=== PATIENT | male | born 1965 | race Caucasian/White ===

== ENCOUNTER → 2016-12-23 | Outpatient (CLI) | payer MEDICAID ==
[~2016-12-23] MED LIST: BACTRIM DS 8001 TAB PO; CIPRO 500MG TA500 MG PO; DIFLUCAN150 MG PO; FUROSEMIDE 20MG20 MG PO; GABAPENTIN 400400 MG PO; GLIPIZIDE 5MG TA5 MG PO; KEFLEX 500MG.500 MG PO; LISINOPRIL-HYDR1 TAB PO; METFORMIN500 MG PO; NOMEDS; NYSTATIN C30 GM/TUBE EX; OXYCODONE HCL10 M1 PO; OXYCODONE HYDRO10 M2 PO; PREDNISONE 10MG10 MG PO; PYRIDIUM 200MG200 MG PO; SPIRONOLACTONE25 MG NG
[2016-12-23 19:45] LABS: AMPHETAMINES/METAMPHETAMINES NEGATIVE ng/mL (<1000)
== END ==
LOC: LAB 18:07
PROVIDERS: Emergency Medicine
DX: Z79.899 Other long term (current) drug therapy (principal)

== ENCOUNTER 2017-04-18 08:57 | Observation (INO) | payer MEDICAID ==
[~2017-04-18] VITALS: Ht 180.3 cm; Wt 111.1 kg
[2017-04-18 09:01] VITALS: BP 192/101
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
[2017-04-18 09:42] LABS: HEMOGLOBIN 13.6 g/dL (14.1-18.0); LYMPH # 1.3 K/mm3 (0.7-4.5); LYMPH % 18.5 % (10-50)
[2017-04-18 09:56] LABS: URINE BLOOD 1+ (NEG)
[2017-04-18 09:59] LABS: URINE BILIRUBIN - DIPSTICK NEGATIVE (NEG)
[2017-04-18 10:02] LABS: AMPHETAMINES/METAMPHETAMINES NEGATIVE ng/mL (<1000)
[2017-04-18 10:23] LABS: BUN 10 mg/dL (7-18)
[2017-04-18 10:25] LABS: GFR (ESTIMATED) 79 ML/MIN (>60)
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
[2017-04-18 11:58] VITALS: BP 120/73
[2017-04-18 12:09] VITALS: BP 144/71
[2017-04-18 16:05] VITALS: BP 128/54
[2017-04-18 19:57] VITALS: BP 157/83
[2017-04-18 20:05] VITALS: BP 157/83
[2017-04-19 04:01] VITALS: BP 162/83
--- NOTE | 2017-04-19 07:21 | PHARMACY CLINIC NOTE ---
Patient Demographics Patient Demographics Admission date: 04/18/17 Date: 04/19/17 Time: 07 Allergies Coded Allergies: No Known Drug Allergies (02/29/16) HEIGHT- FT: 5 IN: 11.00 K.132 VTE General Information Labs: Laboratory Tests 04/18 09 Hematology Hgb (14.1 - 18.0 g/dL) 13.6 L Hct (42.0 - 52.0 %) 41.2 L Plt Count (142 - 424 K/mm3) 184 Disclaimer The following section includes nursing documentation that has been pulled in for pharmacy review. Patient's VTE score: 5 Patient's VTE Risk: LOW RISK Clinical trial participant? No VTE prophylaxis F [id number] VTE prophylaxis ordered? Yes Type of prophylaxis/treatment: LATA at 0721
[2017-04-19 08:00] VITALS: BP 152/74
[2017-04-19 09:31] VITALS: BP 152/74
[2017-04-19 14:37] LABS: HBsAg Screen Negative (Negative); Hep A Ab, IgM Negative (Negative); Hep B Core Ab, IgM Negative (Negative); Hep C Virus Ab >11.0 (0.0-0.9)
--- OUTSIDE RECORDS SUMMARY | 2017-04-20 07:05 | External Medical Summary Rpt ---
Author Author , JEFFREY MURPHY Address Unknown Phone [email or web address] Team Providers Care Hypertrichologist Name Role Phone INNA AMAYA, Unavailable Unavailable INNA AMAYA STEPHEN A, Unavailable Unavailable JIMBO CHACKO CONDE ALL, CONDE ALL Unavailable Unavailable JULIA MI, JULIA Unavailable Unavailable MI HEWITTGINA FARIAS, Unavailable Unavailable HEWITT JARRETT HEWITT JARRETT, Unavailable Unavailable HEWITTCARLOS BAEZ, Unavailable Unavailable [facility] Unavailable Unavailable [facility], [facility] RENESTERLING MULLINS, Unavailable Unavailable RENE, STERLING FALLIS MAHIN, FALLIS Unavailable Unavailable MAHIN PATRICIA FERGUSONEY Unavailable Unavailable PHYLLIS BETO, PHYLLIS Unavailable Unavailable BETO MONIQUE LACY, Unavailable Unavailable MONIQUE LACY RITA R, Unavailable Unavailable [facility] L[facility] Unavailable Unavailable INC, [facility] NAMRATA SAENZ, Unavailable Unavailable NAMRATA SAENZ [facility], Unavailable Unavailable [facility] Unavailable Unavailable IM[facility], [facility] Leanna Blair MD, Unavailable Unavailable Leanna Blair MD [facility] RENATA SWEENEY, Unavailable Unavailable RENATA SWEENEY [id number], Unavailable Unavailable [id number] Unavailable Unavailable [id number] [address] [id number], [facility] [id number] [address] [id number] CARINE KEY Unavailable Unavailable [facility] Unavailable Unavailable [facility]PIT[facility], [facility] Unavailable Unavailable #591, [id number] Purpose Continuity of Care Document - 03-21-2009 through 2016 Problems Code Diagnosis DOS Provider Status [id number] OTHER LONG 02-17-2017 [facility] CURRENT INC DRUG THERAPY G8929 OTHER 12-23-2016 [facility] CHRONIC PHYSICIANS PAIN GROUP E11.9 Type 2 12-18-2016 diabetes mellitus without complicatio ns I10 Essential 12-18-2016 (primary) hypertensio n R22.43 Localized 12-18-2016 swelling, mass and lump, lower limb, bilateral R60.0 Localized 12-18-2016 edema Z72.0 Tobacco use 12-18-2016 E119 TYPE 2 12-12-2016 [facility] WITHOUT COMPLICATIO NS I10 ESSENTIAL 12-12-2016 [facility] N R2243 LOC 12-12-2016 [place] [facility] LOWER LIMB BILATERAL R600 LOCALIZED 12-12-2016 [facility] Z0389 ENCOUNTER 12-12-2016 [place] [facility]TH [facility] SUSPCT [facility] COND RULED OUT Z720 TOBACCO USE 12-12-2016 [facility] B1920 UNS VIRAL 11-25-2016 [facility] HEPATITIS C PHYSICIANS WITHOUT GROUP HEPATIC COMA E663 OVERWEIGHT 11-25-2016 [facility] M5116 INTERVERTEB 11-25-2016 [facility] RAL DISC PHYSICIANS D/O GROUP W/RADICULOP ATHY LUMB RGN M545 LOW BACK 11-25-2016 [facility] PAIN PHYSICIANS GROUP M1990 UNSPECIFIED 09-07-2016 [facility] PHYSICIANS OSTEOARTHRI GROUP TIS UNSPECIFIED SITE Z139 ENCOUNTER 07-29-2016 [facility] FOR [facility] SCREENING GROUP UNSPECIFIED Z23 ENCOUNTER 07-29-2016 [facility] IMMUNIZATIO GROUP N B353 TINEA PEDIS 06-08-2016 [facility] M9983 OTHER 06-08-2016 [facility] BIOMECHANIC PHYSICIANS AL LESIONS GROUP OF LUMBAR REGION M722 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 D47909 PAIN IN 04-07-2016 [facility] MAHIN RIGHT FOOT N85621 PAIN IN 04-07-2016 [facility] MAHIN LEFT FOOT G8918 OTHER ACUTE 03-31-2016 [facility] MA[facility] POSTPROCEDU RAL PAIN I890 LYMPHEDEMA 03-31-2016 [facility] MAHIN NOT ELSEWHERE CLASSIFIED C31607W DISPLACED 03-31-2016 [facility] MAHIN FX 3RD METATARSAL LT FT SUBSQT FX RTN E71341D DSPL FX 03-31-2016 [facility] MAHIN PROX PHALANX LT GREAT TOE SBSQT FX RTN Z4789 ENCOUNTER 03-17-2016 [place] FOR OTHER [facility]ICAL ORTHOPEDIC IMAGING ASS AFTERCARE R65221H UNS 02-29-2016 COMMUNITY FRACTURE LT ANESTH OF TOES [facility] INITIAL ENC CLOS FRACTURE E1142 TYPE 2 02-25-2016 [facility] MAHIN DIABETES MELLITUS W/DIAB POLYNEUROPA THY M2570 OSTEOPHYTE 02-25-2016 [facility] MAHIN UNSPECIFIED JOINT B14314E DISPLACED 02-25-2016 [facility] MAHIN FX 3RD METATARSAL LT FT INIT CLOS FX [id number] DSPL FX 02-25-2016 [facility] MAHIN PROX PHALANX LT GREAT TOE INIT CLOS FX F12119T UNS 02-24-2016 [facility] FRACTURE LT PHYSICIANS FOOT GROUP INITIAL ENC CLOS FRACTURE T148 OTHER 02-24-2016 [facility] INJURY OF PHYSICIANS UNSPECIFIED GROUP BODY REGION T94988 PAIN IN 02-21-2016 [place] [facility] R079 CHEST PAIN 02-21-2016 [place] UNSPECIFIED MEDICAL IMAGING ASS B115DLN UNSPECIFIED 02-21-2016 [place] INJURY OF MEDICAL THORAX IMAGING ASS INITIAL ENCOUNTER K6429LL UNS INJURY 02-21-2016 [place] LT LOWER MEDICAL LEG INITIAL IMAGING ASS ENCOUNTER A53759T NONDSPL FX 02-21-2016 [place] 3RD MEDICAL METATARSAL IMAGING ASS LT FT INIT ENC CLOS FX M19601A DSPL FX 02-21-2016 [place] PROX PHALNX MEDICAL LT LESSER IMAGING ASS TOES INIT YONY FX Z72349 PRIMARY 02-09-2016 [facility] TIS INC UNSPECIFIED SHOULDER M170 BILATERAL 12-15-2015 [facility] OSTEOARTHRI INC TIS OF KNEE M5136 OTH 11-30-2015 [facility] RAL DISC INC DEGEN LUMBAR REGION 607.1 607.1 10-19-2013 [facility] 4439 UNSPECIFIED 10-13-2009 [facility] PERIPHERAL JARRETT VASCULAR DISEASE 4541 VARICOSE 10-13-2009 [facility] VEINS LOWER JARRETT EXTREMITIES W/INFLAMMAT ION 4660 ACUTE 09-30-2009 [facility] 61225 CHRONIC 09-23-2009 BERT SAENZ W IS UNSPECIFIED 7214 DEGENERATIO 08-10-2009 [facility] N OF FAMILY CERVICAL CHIROPRACTI INTERVERTEB C RAL DISC 46093 DEGEN 08-10-2009 [facility] 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 INTERVERTEB RAL DISC 96010 DEGEN 08-10-2009 [facility] LUMBAR/LUMB FAMILY OSACRAL CHIROPRACTI INTERVERTEB C RAL DISC 7395 NONALLOPATH 08-10-2009 [facility] IC LESION FAMILY OF [place] CHIROPRACTI REGION NEC C 30097 DIAB W/O 07-28-2009 [facility] COMP TYPE [facility] II/UNS NOT HOSPITAL STATED PROF DARYA UNCNTRL 73435 COR 07-28-2009 [facility] TYPE VESSEL PROF SERV NUNA[place]YARMI[place]/DELMI T [address]73 PERIPHERAL 07-28-2009 [facility] ANGIOPATHY [facility] CLASSIFIED PROF SERV ELSW 10063 OBSTRUCTIVE 07-28-2009 [facility] CHRONIC [facility] WITH PROF SERV EXACERBATIO N 59304 OBESITY, 03-21-2009 MONIQUE, UNSPECIFIED INNA Zaidi 4011 ESSENTIAL 03-21-2009 MONIQUE, HYPERTENSIO INNA Zaidi N, BENIGN 7019 UNSPECIFIED 03-21-2009 INNA AMAYA HYPERTROPHI C&ATROPHIC CONDITION SKIN E87.6 HYPOKALEMIA F19.10 OTHER PSYCHOACTIV E SUBSTANCE ABUSE, UNCOMPLICAT ED M62.82 RHABDOMYOLY SIS R74.8 ABNORMAL LEVELS OF OTHER SERUM ENZYMES S02.92XA UNSP FRACTURE OF FACIAL BONES, INIT FOR CLOS FX Allergies, Adverse Reactions, Alerts Type Drug Allergy Adverse Reaction to Substance Substance Reaction Severity No Known Allergies - Unknown Mild Nka Clinical Alert Notifications Alert Diabetes: no A1C in the last 6 months Diabetes: no eye exam in the last 365 days Diabetes: no lipid panel in the last 365 days Diabetes: no urine protein screening in the last 365 days Medications Na ND Rx Da Fi Fi Am Da Di Ph RX Ph St me C No te ll ll ou ys ag ar # ys at rm s nt no ma ic us Or Da si cy ia de te s n re d LI 68 06 07 60 30 00 HO Ac SI 18 -1 -2 .0 00 ME ti NO 00 9- - 06 TO ve IL 51 20 20 08 WN IL 80 17 17 34 -H [address] AR Z MA 10 CY -1 2. OF 5 MG CY NT TA HI B AN A BU 00 06 07 60 30 00 HO Ac ME 18 -1 -2 .0 00 ME ti TA 50 9- 1- 00 06 TO ve NI 13 20 20 08 WN DE 00 17 17 51 2 1 60 PH AR MG MA CY TA BL OF ET CY NT HI AN A GA 68 06 07 90 30 00 HO Ac BA 00 -1 -2 .0 00 ME ti PE 10 9- 1- 00 06 TO ve NT 00 20 20 08 WN IN 70 17 17 34 3 66 PH 80 AR 0 MA MG CY TA OF BL ET CY NT HI AN A ME 68 06 06 60 30 00 HO Ac TF 38 -0 -3 .0 00 ME ti OR 20 2- 0- 00 06 TO ve WA 76 20 20 08 WN N 00 17 17 34 HC 5 67 PH L AR 1, MA 00 CY 0 MG OF TA CY BL NT ET HI AN A GL 60 06 06 60 30 00 HO Ac IP 50 -0 -3 .0 00 ME ti IZ 50 2- 0- 00 06 TO ve ID 14 20 20 08 WN E 20 17 17 34 10 0 68 PH AR MG MA CY TA BL OF ET CY NT HI AN A OX 10 05 06 90 30 00 HO Ac YC 70 -1 -0 .0 00 ME ti OD 20 8- 9- 00 02 TO ve ON 05 20 20 01 WN E 60 17 17 36 HC 1 76 PH L AR 10 MA CY MG OF TA BL CY ET NT HI AN A GA 68 05 06 90 30 00 HO Ac BA 00 -1 -0 .0 00 ME ti PE 10 8- 9- 00 06 TO ve NT 00 20 20 08 WN IN 70 17 17 34 3 66 PH 80 AR 0 MA MG CY TA OF BL ET CY NT HI AN A ME 68 04 05 60 30 00 HO Ac TF 38 -1 -1 .0 00 ME ti OR 20 7- 2- 00 06 TO ve WA 76 20 20 08 WN N 00 17 17 01 HC 5 58 PH L AR 1, MA 00 CY 0 MG OF TA CY BL NT ET HI AN A OX 10 04 05 90 30 00 HO Ac YC 70 -2 -1 .0 00 ME ti OD 20 0- 2- 00 02 TO ve ON 05 20 20 01 WN E 60 17 17 34 HC 1 16 PH L AR 10 MA CY MG OF TA BL CY ET NT HI AN A GA 68 04 05 90 30 00 HO Ac BA 00 -2 -1 .0 00 ME ti PE 10 0- 2- 00 06 TO ve NT 00 20 20 08 WN IN 70 17 17 34 3 66 PH 80 AR 0 MA MG CY TA OF BL ET CY NT HI AN A GL 60 04 05 60 30 00 HO Ac IP 50 -1 -1 .0 00 ME ti IZ 50 7- 2- 00 06 TO ve ID 14 20 20 08 WN E 20 17 17 01 10 0 57 PH AR MG MA CY TA BL OF ET CY NT HI AN A LI 68 04 05 60 30 00 HO Ac SI 18 -2 -1 .0 00 ME ti NO 00 0- 2- 00 06 TO ve IL 51 20 20 08 WN IL 80 17 17 54 -H [address] AR Z MA 10 CY -1 2. OF 5 MG CY NT TA HI B AN A BU 00 04 05 60 30 00 HO Ac ME 18 -1 -0 .0 00 ME ti TA 50 4- 5- 00 06 TO ve NI 13 20 20 08 WN DE 00 17 17 51 2 1 60 PH AR MG MA CY TA BL OF ET CY NT HI AN A OX 10 03 04 90 30 00 HO Ac YC 70 -2 -1 .0 00 ME ti OD 20 3- 4- 00 02 TO ve ON 05 20 20 01 WN E 60 17 17 32 HC 1 23 PH L AR 10 MA CY MG OF TA BL CY ET NT HI AN A LI 68 03 04 60 30 00 HO Ac SI 18 -2 -1 .0 00 ME ti NO 00 3- 4- 00 06 TO ve IL 51 20 20 08 WN IL 80 17 17 01 -H [address] AR Z MA 10 CY -1 2. OF 5 MG CY NT TA HI B AN A GA 68 03 04 90 30 00 HO Ac BA 00 -2 -1 .0 00 ME ti PE 10 3- 4- 00 06 TO ve NT 00 20 20 08 WN IN 70 17 17 01 3 61 PH 80 AR 0 MA MG CY TA OF BL ET CY NT HI AN A GL 60 03 04 60 30 00 HO Ac IP 50 -1 -0 .0 00 ME ti IZ 50 7- 7- 00 06 TO ve ID 14 20 20 08 WN E 20 17 17 01 10 0 57 PH AR MG MA CY TA BL OF ET CY NT HI AN A ME 68 03 04 60 30 00 HO Ac TF 38 -1 -0 .0 00 ME ti OR 20 7- 7- 00 06 TO ve WA 76 20 20 08 WN N 00 17 17 01 HC 5 58 PH L AR 1, MA 00 CY 0 MG OF TA CY BL NT ET HI AN A LI 68 02 03 60 30 00 HO Ac SI 18 -2 -1 .0 00 ME ti NO 00 3- 7- 00 06 TO ve IL 51 20 20 08 WN IL 80 17 17 01 -H [address] AR Z MA 10 CY -1 2. OF 5 MG CY NT TA HI B AN A OX 10 02 03 90 30 00 HO Ac YC 70 -2 -1 .0 00 ME ti OD 20 3- 7- 00 02 TO ve ON 05 20 20 01 WN E 60 17 17 29 HC 1 73 PH L AR 10 MA CY MG OF TA BL CY ET NT HI AN A GA 68 02 03 90 30 00 HO Ac BA 00 -2 -1 .0 00 ME ti PE 10 3- 7- 00 06 TO ve NT 00 20 20 08 WN IN 70 17 17 01 3 61 PH 80 AR 0 MA MG CY TA OF BL ET CY NT HI AN A LI 68 01 02 60 30 00 HO Ac SI 18 -2 -1 .0 00 ME ti NO 00 5- 7- 00 06 TO ve IL 51 20 20 08 WN IL 80 17 17 01 -H [address] AR Z MA 10 CY -1 2. OF 5 MG CY NT TA HI B AN A OX 10 01 02 90 30 00 HO Ac YC 70 -2 -1 .0 00 ME ti OD 20 5- 7- 00 02 TO ve ON 05 20 20 01 WN E 60 17 17 26 HC 1 86 PH L AR 10 MA CY MG OF TA BL CY ET NT HI AN A ME 68 01 02 60 30 00 HO Ac TF 38 -2 -1 .0 00 ME ti OR 20 5- 7- 00 06 TO ve WA 76 20 20 08 WN N 00 17 17 01 HC 5 58 PH L AR 1, MA 00 CY 0 MG OF TA CY BL NT ET HI AN A GA 68 01 02 90 30 00 HO Ac BA 00 -2 -1 .0 00 ME ti PE 10 5- 7- 00 06 TO ve NT 00 20 20 08 WN IN 70 17 17 01 3 61 PH 80 AR 0 MA MG CY TA OF BL ET CY NT HI AN A GL 60 01 02 60 30 00 HO Ac IP 50 -2 -1 .0 00 ME ti IZ 50 5- 7- 00 06 TO ve ID 14 20 20 08 WN E 20 17 17 01 10 0 57 PH AR MG MA CY TA BL OF ET CY NT HI AN A IB 53 01 02 20 5 00 HO Ac UP 74 -1 -1 .0 00 ME ti RO 60 1- 0- 00 06 TO ve FE 46 20 20 07 WN N 60 17 17 93 80 5 60 PH 0 AR MG MA CY TA BL OF ET CY NT HI AN A CY 00 12 01 45 15 00 HO Ac CL 60 -2 -2 .0 00 ME ti OB 33 9- 0- 00 06 TO ve EN 07 20 20 07 WN ZA 93 16 17 84 IL 2 83 PH IN AR E MA 10 CY MG OF TA CY BL NT ET HI AN A LI 68 12 01 60 30 00 HO Ac SI 18 -2 -2 .0 00 ME ti NO 00 9- 0- 00 06 TO ve IL 51 20 20 07 WN IL 80 16 17 45 -H [address] AR Z MA 10 CY -1 2. OF 5 MG CY NT TA HI B AN A GA 68 12 01 90 30 00 HO Ac BA 00 -2 -2 .0 00 ME ti PE 10 9- 0- 00 06 TO ve NT 00 20 20 06 WN IN 70 16 17 09 3 77 PH 80 AR 0 MA MG CY TA OF BL ET CY NT HI AN A GL 60 12 01 60 30 00 HO Ac IP 50 -2 -2 .0 00 ME ti IZ 50 9- 0- 00 06 TO ve ID 14 20 20 07 WN E 20 16 17 45 10 0 84 PH AR MG MA CY TA BL OF ET CY NT HI AN A 00 12 01 30 30 00 HO Ac PI 60 -2 -2 .0 00 ME ti RI 30 9- 0- 00 06 TO ve N 02 20 20 07 WN EC 63 16 17 84 2 84 PH 81 AR MA MG CY TA OF BL ET CY NT HI AN A BU 68 12 01 30 30 00 HO Ac IL 00 -2 -2 .0 00 ME ti OP 10 8- 0- 00 06 TO ve IO 19 20 20 07 WN N 90 16 17 83 HC 0 93 PH L AR 75 MA CY MG OF TA BL CY ET NT HI AN A ME 68 12 01 60 30 00 HO Ac TF 38 -2 -2 .0 00 ME ti OR 20 9- 0- 00 06 TO ve WA 76 20 20 07 WN N 00 16 17 45 HC 5 83 PH L AR 1, MA 00 CY 0 MG OF TA CY BL NT ET HI AN A OX 10 12 01 90 30 00 HO Ac YC 70 -2 -2 .0 00 ME ti OD 20 8- 0- 00 02 TO ve ON 05 20 20 01 WN E 60 16 17 24 HC 1 29 PH L AR 10 MA CY MG OF TA BL CY ET NT HI AN A FL 00 02 0 No UC 17 -0 ON 25 8- Lo AZ 41 20 ng OL 14 14 er E 6 10 Ac 0 ti MG ve TA BL ET LI 00 02 0 No DO 05 -0 CA 48 8- Lo IN 50 20 ng E 01 14 er 2% 6 Ac ti SC ve OU S 15 ML UD C ME 00 08 08 1 21 6 RI 84 AR Ac TH 60 -2 -3 .0 TE 68 NO ti YL 34 4- 0- 00 24 LD ve IL 59 20 20 AI ED 31 10 10 D RI NI 5 PH CH SO AR AR LO MA D NE CY W 4 03 MG 93 8 DO # SE 03 PK 93 59 08 08 5 8. 16 RI 84 AR Ac 31 -2 -2 50 TE 68 NO ti 00 4- 4- 0 23 LD ve 57 20 20 AI 92 10 10 D RI 0 PH CH AR AR MA D CY W 03 93 8 # 03 93 ME 00 08 08 1 21 6 RI 84 AR Ac TH 60 -2 -2 .0 TE 68 NO ti YL 34 4- 4- 00 24 LD ve IL 59 20 20 AI ED 31 10 10 D RI NI 5 PH CH SO AR AR LO MA D NE CY W 4 03 MG 93 8 DO # SE 03 PK 93 DI 00 08 08 5 60 30 RI 84 AR Ac AZ 59 -2 -2 .0 TE 68 NO ti EP 15 4- 4- 00 25 LD ve AM 62 20 20 AI 00 10 10 D RI 10 1 PH CH AR AR MG MA D CY W TA BL 03 ET 93 8 # 03 93 DI 00 05 05 1 60 30 RI 83 AR Ac AZ 17 -0 -0 .0 TE 25 NO ti EP 23 5- 5- 00 97 LD ve AM 92 20 20 AI 77 10 10 D RI 10 0 PH CH AR AR MG MA D CY W TA BL 03 ET 93 8 # 03 93 AZ 59 01 01 00 6[address] Ac IT 76 -1 -2 00 TE 67 EP ti HR 23 2- 8- 0 79 HE ve OM 06 20 20 AI NS YC 00 10 10 D IN 1 PH KE AR 25 M N 0 #3 C MG 93 8 TA BL ET OX 00 01 01 00 20 3 RI 81 HE Ac YC 40 -1 -2 .0 TE 70 ND ti OD 60 3- 8- 00 30 ER ve ON 51 20 20 AI SO E- 20 10 10 D N AC 1 PH RO ET AR BE AM M RT IN #3 W OP 93 HE 8 N 5- 32 5 00 01 01 00 15 2 RI 81 HE Ac 40 -1 -2 .0 TE 73 ND ti 60 5- 8- 00 14 ER ve 35 20 20 AI SO 80 10 10 D N 1 PH RO AR BE M RT #3 W 93 8 DI 00 10 12 00 60 30 RI 81 AR Ac AZ 17 -0 -3 .0 TE 35 NO ti EP 23 6- 1- 00 47 LD ve AM 92 20 20 AI 77 09 09 D RI 10 0 PH CH AR AR MG M D #3 W TA 93 BL 8 ET PE 00 12 12 00 [address] Ac NI 78 -0 -1 .0 L- 48 EP ti CI 11 2- 7- 00 MA 42 HE ve LL 65 20 20 RT 5 NS IN 50 09 09 1 PH KE VK AR MA N 50 CY C 0 MG #5 91 TA BL ET 00 12 12 00 [address] Ac 59 -0 -1 .0 L- 48 EP ti 13 2- 7- 00 MA 42 HE ve 96 20 20 RT 6 NS 90 09 09 1 PH KE AR MA N CY C #5 91 DI 00 10 11 01 60 30 WA 44 AR Ac AZ 37 -0 -1 .0 L- 80 NO ti EP 80 6- 9- 00 MA 23 LD ve AM 47 20 20 RT 1 70 09 09 RI 10 5 PH CH AR AR MG MA D CY W TA BL #5 ET 91 DI 00 10 10 00 60 30 WA 44 AR Ac AZ 37 -0 -2 .0 L- 80 NO ti EP 80 6- 2- 00 MA 23 LD ve AM 47 20 20 RT 1 70 09 09 RI 10 5 PH CH AR AR MG MA D CY W TA BL #5 ET 91 LI 00 07 07 00 30 30 RI 79 AR Ac SI 37 -1 -3 .0 TE 14 NO ti NO 82 1- 0- 00 33 LD ve IL 07 20 20 AI IL 40 09 09 D RI 1 PH CH 10 AR AR M D MG #3 W 93 TA 8 BL ET Immunization Name Date Rout CVX Reac Dose Comm Prov Is Faci e tion ent ider Refu lity Give sed n PPSV 11-1 33 GAIN No HMH 23 8-20 EY PHYS VACC 16 BETO ICIA INE NS 2 GROU YRS P OR OLDE R FOR SUBQ /IM USE Vital Signs 10-19-2013 01:03 Name Value Interpretat Reference Comment ion Range BP 99 mm[Hg] Diastolic BP Systolic 160 mm[Hg] Heart 87 /min Rate/Pulse O2% 98 % Respiratory 20 /min Rate 10-19-2013 00:21 Name Value Interpretat Reference Comment ion Range BP 94 mm[Hg] Diastolic BP Systolic 151 mm[Hg] Heart 80 /min Rate/Pulse O2% 97 % Respiratory 20 /min Rate Results Labs Lab Lab Date Result Refere Interp Status Commen Order Detail nces retati t Range on Drugs identified in Urine by Screen method (04-18-2017 09:25) Ampheta NEGATIV <1000 complet mine 017 E ed [Presen 09:25 ce] in Urine by Screen method Hydr NEGATIV <50 complet oxy 017 E ed delta-9 09:25 tetrahy drocann abinol [Presen ce] in Unspeci fied specime n Drugs identified in Urine by Screen method (02-17-2017 16:15) Ampheta NEGATIV <1000 complet mine 017 E ed [Presen 16:15 ce] in Urine by Screen method Hydr NEGATIV <50 complet oxy 017 E ed delta-9 16:15 tetrahy drocann abinol [Presen ce] in Unspeci fied specime n Procedures Procedure DOS Code Location Performer Comment DRUG TEST 96983 [facility] QUAL DIR INC INC OPTICAL OBS PER DAY DRUG TEST 54944 [facility]AL DIR INC INC OPTICAL OBS PER DAY DRUG TEST 76419 [facility]AL [place] [address] [facility] COMPREHEN 55980 [facility] SIVE 7 [facility] METABOLIC E E PANEL [facility] DUP-SCAN 17179 [facility] XTR VEINS 7 [facility]ALTHCAR [facility] COMPLETE E E [facility] BILATERAL STUDY BLOOD 08266 [facility] COUNT 7 [facility] COMPLETE E E [facility] [place] 05573 [facility] IC 7 [facility] PEPTIDE E E HOSP[facility]ALS H[facility] CREATINE 67999 [facility] KINASE 7 [facility] TOTAL E E [facility] DRUG TEST 72589 [facility] QUAL DIR INC INC OPTICAL OBS PER DAY DRUG TEST 57274 [facility] QUAL DIR INC INC OPTICAL OBS PER DAY DRUG TEST 44720 [facility] QUAL DIR INC INC OPTICAL OBS PER DAY DRUG TST G0477 [facility] PRESUMP;C [facility] PBL BEING INC INC READ DC OPT OBV ONLY DRUG TST G0477 [facility] PRESUMP;C [facility] PBL BEING INC INC READ DC OPT OBV ONLY HEMOGLOBI 56821 [facility] N 6 [facility] GLYCOSYLA INC INC LATA A1C BLOOD 65079 [facility] COUNT [facility] COMPLETE INC INC AUTO&AUTO DIFRNTL WBC PPSV23 57380 [facility] VACCINE 2 6 PHYSICIAN BETO YRS OR S GROUP OLDER FOR SUBQ/IM USE COMPREHEN 40864 [facility] SIVE [facility] METABOLIC INC INC PANEL IM ADM 26308 [facility] PRQ ID 6 PHYSICIAN BETO SUBQ/IM S GROUP NJXS 1 VACCINE DRUG TST G0477 [facility] PRESUMP[facility] PBL BEING INC INC READ DC OPT OBV ONLY FOOT L3020 [facility] J[facility]IA INSRT 6 MAHIN MI REMV MOLD PT MDL LNGTUDNL/ MT SUPP EA DRUG TST G0477 [facility] PBL BEING INC INC READ DC OPT OBV ONLY DRUG TEST G0481 [facility] DEFINITV [address] [facility] [address] [facility] [address] ID INC INC METH P DAY 8-14 DRUG CL REMOVAL 92170 [facility] IMPLANT 6 MAHIN MI DEEP APPLICATI 21205 [facility] ON RIGID 6 MAHIN MI TOTAL CONTACT LEG CAST RADIOLOGI 43461 GE[facility] CONDE ALL C 6 MEDICAL EXAMINATI IMAGING ON FOOT 2 ASS VIEWS RADEX 96880 [facility] FOOT 6 [facility] COMPLETE INC INC MINIMUM 3 VIEWS ANES OPEN 82509 [facility] PROC 6 ANESTH NEL BONES OF THE LOWER BLUE LEG/ANKLE /FOOT NOS BLOOD 84362 [facility] COUNT 6 [facility] COMPLETE INC INC AUTO&AUTO DIFRNTL WBC WALKING L4360 [facility]IA BOOT 6 MAHIN MI PNEUMATC &/ VACUUM PREFAB CUSTM FIT ADD LOW L2840 [facility] EXTREM 6 MAHIN MI ORTHOTIC TIB LENGTH SOCK FX/= EA RADIOLOGI 35653 GEETHA CONDE ALL C 6 MEDICAL EXAMINATI IMAGING ON KNEE ASS 1/2 VIEWS RADIOLOGI 67875 [facility] CONDE ALL C 6 MEDICAL EXAMINATI IMAGING ON FOOT 2 ASS VIEWS RADIOLOGI 68139 [facility] CONDE ALL C 6 MEDICAL EXAMINATI IMAGING ON CHEST ASS SINGLE VIEW FRONTAL DRUG TST G0477 [facility] PRESUMP;C [facility] PBL BEING INC INC READ DC OPT OBV ONLY DRUG 82254 [facility] SCREENING 6 [facility] OPIOIDS INC INC & OPIATE ANALOGS 5/MORE ARTHROCEN 26919 [facility] TESIS [facility] ASPIR&/IN INC INC J MAJOR JT/BURSA W/O US INJECTION J1030 [facility] METHYLPRE INC INC DNISOLONE ACETATE 40 MG PROSTATE G0103 [facility] CANCER 6 [facility] SCREENING INC INC ; PSA TEST COMPREHEN 60744 [facility] SIVE 6 [facility] [address] [facility] PROSTATE 6 [facility] SPECIFIC INC INC ANTIGEN FREE BLOOD 28879 [facility] COUNT 6 [facility] COMPLETE INC INC AUTO&AUTO DIFRNTL WBC HEMOGLOBI 19100 [facility] N 6 [facility] GLYCOSYLA INC INC LATA A1C MRI 23155 [facility] SPINAL [facility] CANAL INC INC LUMBAR W/O CONTRAST MATERIAL DRUG TST G0477 [facility] PRESUMP;C [facility] PBL BEING INC INC READ DC OPT OBV ONLY DRUG TST G0477 [facility] PRESUMP;C 6 [facility] PBL BEING INC INC READ DC OPT OBV ONLY ALBUMIN 00683 [facility] URINE [facility] MICROALBU INC INC MIN QUANTIATI VE HEMOGLOBI 24388 [facility] N 6 [facility] GLYCOSYLA INC INC LATA A1C BASIC 75510 [facility] DO[facility] METABOLIC 6 [facility] PANEL INC INC CALCIUM TOTAL DRUG 28239 L[facility] SCREEN [facility] LIST A INC INC SINGLE DRUG CLASS METHOD NON-INVAS 48173 RAYMOND DAVIS 0 [facility] IMAGING IC STUDY ASSOCIATE EXTREMITY S 3 LEVLS GINGIVOPL 41995 LETTY SAENZ ASTY EACH 0 , NAMRATA OTT W W SPECIFY ORTHOPANT 18825 LETTY SAENZ OGRAM 0 , NAMRATA OTT THERAPEUT 95617 SUYAPA LACY, HAYDEN PX 1/> 9 FAMILY KURT R AREAS CHIROPRAC EACH 15 TIC MIN EXERCISES CHIROPRAC 88361 SHIRIN RODRIGUES 9 FAMILY KURT R MANIPULAT CHIROPRAC [place] TIC SPINAL 3-4 REGIONS APPL 44345 SUYAPA LACY MODALITY 9 FAMILY KURT R 1/> AREAS CHIROPRAC ELEC TIC STIMJ UNATTENDE D APPL 34080 SHA RODRIGUES 9 FAMILY KURT R 1/> AREAS CHIROPRAC TRACTION TIC MECHANICA L APPL 91773 SUYAPA LACY MODALITY 9 FAMILY KURT R 1/> AREAS CHIROPRAC ELEC TIC STIMJ UNATTENDE D SELF-CARE 34174 MAGGIE LACY, /HOME 9 FAMILY ARNOLD H MGMT CHIROPRAC TRAINING TIC EACH 15 MINUTES CHIROPRAC 22397 MAGGIE LACY, TIC 9 FAMILY ARNOLD H MANIPULAT CHIROPRAC [place] TIC SPINAL 3-4 REGIONS APPL 44672 SUYAPA LACY, MODALITY 9 FAMILY KURT R 1/> AREAS CHIROPRAC ELEC TIC STIMJ EA 15 MIN THERAPEUT 88969 MAGGIE LACY, IC PX 1/> 9 FAMILY ARNOLD H AREAS CHIROPRAC EACH 15 TIC MIN EXERCISES CHIROPRAC 73149 SUYAPA LACY, TIC 9 FAMILY KURT R MANIPULAT CHIROPRAC [place] TIC SPINAL 3-4 REGIONS RADEX 56781 SUYAPA LACY, SPINE 9 FAMILY KURT R LUMBOSACR CHIROPRAC AL 2/3 TIC VIEWS THERAPEUT 16661 SUYAPA LACY, IC PX 1/> 9 FAMILY KURT R AREAS CHIROPRAC EACH 15 TIC MIN EXERCISES RADEX 56515 SUYAPA LACY, SPINE 9 FAMILY KURT R CERVICAL CHIROPRAC 2 OR 3 TIC VIEWS CHIROPRAC 73823 SUYAPA LACY, TIC 9 FAMILY KURT R MANIPLTV CHIROPRAC TX TIC EXTRASPIN AL 1/> REGION SELF-CARE 02761 SUYAPA LACY, /HOME 9 FAMILY KURT R MGMT CHIROPRAC TRAINING TIC EACH 15 MINUTES APPL 55438 SUYAPA LACY, MODALITY 9 FAMILY KURT R 1/> AREAS CHIROPRAC TRACTION TIC MECHANICA L APPL 13218 SUYAPA LACY, MODALITY 9 FAMILY KURT R 1/> AREAS CHIROPRAC ELEC TIC STIMJ UNATTENDE D ECG 16930 [facility] ROUTINE 9 [facility] ECG INC INC W/LEAST 12 LDS TRCG ONLY W/O I&R BILIRUBIN 21331 [facility] DIRECT 9 [facility] INC INC SEDIMENTA 31332 [facility] TION RATE 9 [facility] RBC INC INC NON-AUTOM ATED RADIOLOGI 42384 [facility] C EXAM 9 [facility] CHEST 2 INC INC VIEWS FRONTAL&L ATERAL ECG 16171 LAVON CHACKO, ROUTINE [address] [facility] W/LEAST PROF SERV 12 LDS I&R ONLY LIPID 15485 [facility] PANEL 9 [facility] INC INC HEMOGLOBI 02425 [facility] N 9 [facility] GLYCOSYLA INC INC LATA A1C THYROID 41460 [facility] DOLL HORM 9 [facility] UPTK/THYR INC INC OID HORMONE BINDING RATIO BLOOD 55392 [facility] COUNT 9 [facility] COMPLETE INC INC AUTO&AUTO DIFRNTL WBC COMPREHEN 41704 [facility] SIVE 9 [facility] [place] [address] [facility] TH[facility]ROID [facility] STIMULATI [place] [address] [facility] THYROXINE 9 [facility] TOTAL INC INC PROSTATE [id number] [facility] CANCER 9 [facility] SCREENING INC INC ; PSA TEST Encounters Encounter Start End Date Code Location Performer Type Date [facility] 7 7 [facility] 7 7 [facility] 7 [facility] T OFFICE 44596 [facility] 7 PHYSICIAN T VISIT S GROUP 15 MINUTES [facility]OSP[facility] - [facility]ALS EMERGENCY 08762 7 7 [facility] DEPARTMEN E T VISIT HOSPITALS HIGH/URGE NT SEVERITY [facility]OSP[facility] 7 7 [facility] T OFFICE 51969 [facility] 7 7 PHYSICIAN T VISIT S GROUP 15 MINUT[facility] OFFICE 41509 [facility] T VISIT S GROUP 25 MINUTES [facility] - 7 7 [facility] T [facility] - 7 7 [facility]PATI[facility] INC T OFFICE 71801 [facility] PHYLLIS OUTPATIEN 7 7 PHYSICIAN T VISIT S GROUP 15 MINUTES OFFICE 76010 [facility] PHYLLIS OUTPATIEN 6 6 PHYSICIAN T VISIT S GROUP 25 MINUTES [facility]OSPITAL [facility] - 6 6 [facility] T [facility] - 6 6 [facility] INC T OFFICE 62008 [facility] PHYLLIS OUTPATIEN 6 6 PHYSICIAN BETO T VISIT S GROUP 25 MINUTES [facility]OSPITAL [facility] - 6 6 [facility] INC T OFFICE 79483 [facility] PHYLLIS OUTPATIEN 6 6 PHYSICIAN BETO T VISIT S GROUP 25 MINUTES OFFICE 51874 [facility] PHYLLIS OUTPATIEN 6 6 PHYSICIAN BETO T VISIT S GROUP 15 MINUTES OFFICE 81255 [facility] J[facility]IA OUTPATIEN 6 6 MAHIN MI T VISIT 15 MINUTES [facility] - 6 6 [facility] INC T OFFICE 59483 [facility] 6 6 [facility] T VISIT INC 10 MINUTES [facility] - 6 6 [facility] OUTPATIEN INC T OFFICE 73731 [facility] J[facility]IA OUTPATIEN 6 6 MAHIN MI T VISIT 15 MINUTES [facility]OSPITAL [facility] - 6 6 [facility] OUTPATIEN INC T OFFICE 93181 [facility] PHYLLIS OUTPATIEN 6 6 PHYSICIAN BETO T VISIT S GROUP 10 MINUTES OFFICE 55400 [facility] J[facility]IA OUTPATIEN 6 6 MAHIN MI T NEW 30 MINUTES OFFICE 36682 [facility] 6 6 [facility] T VISIT INC 10 MINUTES [facility]OSP[facility] - 6 6 [facility] - 6 6 [facility] OUTPATIEN INC [facility] - 6 6 [facility]PATIEN [facility] T OFFICE 75504 [facility] 6 6 [facility] T VISIT INC 10 MINUTES HOSPITAL [facility] - 6 6 [facility] OUTPATIEN [facility] T OFFICE 26478 [facility] OUTPATIEN 6 6 PHYSICIAN BETO T VISIT S GROUP 10 MINUTES HOSPITAL [facility] - 6 6 [facility] - 6 6 [facility] 6 6 [facility] OUTPATIEN [facility] T OFFICE 40592 [facility] OUTPATIEN 6 6 PHYSICIAN BETO T VISIT S GROUP 15 MINUTES Emergency SIMON Blair MD (ER) 4 00:31 4 01:15 [facility] OFFICE 26004 KASH HEWITT OUTPATIEN 0 0 [facility] T VISIT 15 MINUTES [facility] - 0 0 [facility] OUTPATIEN [facility] T OFFICE 31699 NEDA RODRIGUES 9 9 FAMILY KURT R T NEW 20 CHIROPRAC MINUTES TIC OFFICE 81370 KASH HEWITT, CONSULTAT 9 9 [facility] PATIENT 60 MIN [facility] - 9 9 [facility] OUTPATIEN [facility] T OFFICE 92175 MONIQUE AMAYA OUTPATIEN 9 9 INNA Zaidi T VISIT 15 MINUTES OFFICE 76329 [facility] AMAYA OUTPATIEN 9 9 INNA NÚÑEZ 60 MINUTES
--- OUTSIDE RECORDS SUMMARY | 2017-04-20 07:05 | External Medical Summary Rpt ---
Author Author , JEFFREY MURPHY Address Unknown Phone [email or web address] Care Team Providers Care Clinic Office Assistant Name Role Phone INNA AMAYA, Unavailable Unavailable INNA AMAYA STEPHEN A, Unavailable Unavailable JIMBO CHACKO CONDE ALL, CONDE ALL Unavailable Unavailable JULIA MI, JULIA Unavailable Unavailable MI HEWITTGINA FARIAS, Unavailable Unavailable HEWITT JARRETT HEWITT JARRETT, Unavailable Unavailable HEWITTCARLOS BAEZ, Unavailable Unavailable [facility] Unavailable Unavailable [facility] RENESTERLING MULLINS, Unavailable Unavailable RENE, STERLING FALLIS MAHIN, FALLIS Unavailable Unavailable MAHIN PATRICIA FERGUSONEY Unavailable Unavailable PHYLLIS BETO, PHYLLIS Unavailable Unavailable BETO MONIQUE LACY, Unavailable Unavailable MONIQUE LACY RITA R, Unavailable Unavailable KURT LACY [facility] Un[facility] Un[facility] INC, [facility] NAMRATA SAENZ, Unavailable Unavailable NAMRATA SAENZ [facility], Unavailable Unavailable [facility] Unavailable Unavailable [facility], [facility] Leanna Blair MD, Unavailable Unavailable Leanna Blair MD [facility] RENATA SWEENEY, Unavailable Unavailable RENATA SWEENEY [id number], Unavailable Unavailable [id number] Unavailable Unavailable [id number] [address] [id number], [facility] [id number] [id number] CARINE KEY Unavailable Unavailable [facility] Unavailable Unavailable HOSPITALS, [facility] Unavailable Unavailable #591, [facility] Purpose Continuity of Care Document - 03-21-2009 through 2016 Problems Code Diagnosis DOS Provider Status [id number] OTHER LONG 02-17-2017 [facility] CURRENT INC DRUG THERAPY G8929 OTHER 12-23-2016 [facility] CHRONIC PHYSICIANS PAIN GROUP E11.9 Type 2 [...] [facility]OUNDATION LOWER LIMB BILATERAL R600 LOCALIZED 12-12-2016 [facility] Z0389 ENCOUNTER 12-12-2016 [facility] SUSPCT DZ & FOUNDATION COND RULED OUT Z720 TOBACCO USE 12-12-2016 [facility] B1920 UNS VIRAL 11-25-2016 [facility] HEPATITIS C PHYSICIANS WITHOUT GROUP HEPATIC COMA E663 OVERWEIGHT 11-25-2016 [facility] M5116 INTERVERTEB 11-25-2016 [facility] RAL DISC PHYSICIANS D/O GROUP W/RADICULOP ATHY LUMB RGN M545 LOW BACK 11-25-2016 [facility] PAIN PHYSICIANS GROUP M1990 UNSPECIFIED 09-07-2016 [facility] OSTEOARTHRI GROUP TIS UNSPECIFIED SITE Z139 ENCOUNTER 07-29-2016 [facility] FOR [facility] SCREENING GROUP UNSPECIFIED Z23 ENCOUNTER 07-29-2016 [facility] IMMUNIZATIO GROUP N B353 TINEA PEDIS 06-08-2016 [facility] M9983 OTHER 06-08-2016 [facility] BIOMECHANIC PHYSICIANS AL LESIONS GROUP OF LUMBAR REGION M722 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 S09262 PAIN IN 04-07-2016 [facility] MA[facility] RIGHT FOOT J41073 PAIN IN 04-07-2016 [facility] MA[facility] LEFT FOOT G8918 OTHER ACUTE 03-31-2016 [facility] MA[facility] POSTPROCEDU RAL PAIN I890 LYMPHEDEMA 03-31-2016 [facility] MAHIN NOT ELSEWHERE CLASSIFIED S54622J DISPLACED 03-31-2016 [facility] MAHIN FX 3RD METATARSAL LT FT SUBSQT FX RTN R88801S DSPL FX 03-31-2016 [facility] MAHIN PROX PHALANX LT GREAT TOE SBSQT FX RTN Z4789 ENCOUNTER 03-17-2016 [facility] [place] AFTERCARE U37461Z UNS 02-29-2016 [facility] FRACTURE LT ANESTH OF TOES THE BLUE INITIAL ENC CLOS FRACTURE E1142 TYPE 2 02-25-2016 [facility] MAHIN DIABETES MELLITUS W/DIAB POLYNEUROPA THY M2570 OSTEOPHYTE 02-25-2016 [facility] MAHIN UNSPECIFIED JOINT W29528X DISPLACED 02-25-2016 [facility] MAHIN FX 3RD METATARSAL LT FT INIT CLOS FX [id number] DSPL FX 02-25-2016 [facility] MAHIN PROX PHALANX LT GREAT TOE INIT CLOS FX [id number] UNS 02-24-2016 [facility] FRACTURE LT PHYSICIANS FOOT GROUP INITIAL ENC CLOS FRACTURE T148 OTHER 02-24-2016 [facility] INJURY OF PHYSICIANS UNSPECIFIED GROUP BODY REGION S10403 PAIN IN 02-21-2016 [facility] [place] LEFT KNEE [facility] R079 CHEST PAIN 02-21-2016 [place] [place] UNSPECIFIED [facility]ICAL IMAGING ASS Q199NPO UNSPECIFIED 02-21-2016 [place] INJURY OF MEDICAL THORAX IMAGING ASS INITIAL ENCOUNTER Y9850SQ UNS INJURY 02-21-2016 [place] LT LOWER MEDICAL LEG INITIAL IMAGING ASS ENCOUNTER Y53254X NONDSPL FX 02-21-2016 [place] [place] 3RD MEDICAL METATARSAL IMAGING ASS LT FT INIT ENC CLOS FX [id number] DSPL FX 02-21-2016 [place] PROX PHALNX MEDICAL LT LESSER IMAGING ASS TOES INIT YONY FX C41987 PRIMARY 02-09-2016 [facility] TIS INC UNSPECIFIED SHOULDER M170 BILATERAL 12-15-2015 [facility]IMARY [facility] OSTEOARTHRI INC TIS OF KNEE M5136 OTH 11-30-2015 [facility] INTERVERTEB [facility] RAL DISC INC DEGEN LUMBAR REGION 607.1 607.1 10-19-2013 [facility] 4439 UNSPECIFIED 10-13-2009 HEW[facility] PERIPHERAL JARRETT VASCULAR DISEASE 4541 VARICOSE 10-13-2009 HEWITT VEINS LOWER JARRETT EXTREMITIES W/INFLAMMAT ION 4660 ACUTE 09-30-2009 [facility] 07253 CHRONIC 09-23-2009 BERT SAENZ W IS UNSPECIFIED 7201 DEGENERATIO 08-10-2009 [place] N OF FAMILY CERVICAL CHIROPRACTI INTERVERTEB C RAL DISC 75018 DEGEN 08-10-2009 [place] 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 INTERVERTEB RAL DISC 86033 DEGEN 08-10-2009 [place] LUMBAR/LUMB FAMILY OSACRAL CHIROPRACTI INTERVERTEB C RAL DISC 7395 NONALLOPATH 08-10-2009 [place] IC LESION FAMILY OF PELVIC CHIROPRACTI REGION NEC C 43332 DIAB W/O 07-28-2009 [place] COMP TYPE [facility] II/UNS NOT HOSPITAL STATED PROF DARYA UNCNTRL 23672 COR 07-28-2009 [place] [facility] TYPE VESSEL PROF SERV SHUNGNAK/DELMI T 10476 PERIPHERAL 07-28-2009 [place] ANGIOPATHY [facility] CLASSIFIED PROF SERV ELSW 15966 OBSTRUCTIVE 07-28-2009 [place] CHRONIC [facility] BRONCHITIS [facility] WITH PROF SERV EXACERBATIO N 52485 OBESITY, 03-21-2009 MONIQUE, UNSPECIFIED INNA Zaidi 4011 [...] NO 00 9- - 06 TO ve IN 51 20 20 08 WN IL 80 [...] 20 2- 0- 00 06 TO ve MO 76 20 20 08 WN N 00 [...] 20 7- 2- 00 06 TO ve MO 76 20 20 08 WN N 00 [...] 00 0- 2- 00 06 TO ve IN 51 20 20 08 WN IL 80 [...] 00 3- 4- 00 06 TO ve IN 51 20 20 08 WN IL 80 [...] 20 7- 7- 00 06 TO ve MO 76 20 20 08 WN N 00 17 17 01 HC 5 58 PH L AR 1, MA 00 CY 0 MG OF TA CY BL NT ET HI AN A LI 68 02 03 60 30 00 HO Ac SI 18 -2 -1 .0 00 ME ti NO 00 3- 7- 00 06 TO ve IN 51 20 20 08 WN IL 80 [...] 00 5- 7- 00 06 TO ve IN 51 20 20 08 WN IL 80 [...] 20 5- 7- 00 06 TO ve MO 76 20 20 08 WN N 00 [...] 07 WN ZA 93 16 17 84 IN 2 83 PH IN AR E MA 10 CY MG OF TA CY BL NT ET HI AN A LI 68 12 01 60 30 00 HO Ac SI 18 -2 -2 .0 00 ME ti NO 00 9- 0- 00 06 TO ve IN 51 20 20 07 WN IL 80 [...] 12 01 30 30 00 HO Ac IN 00 -2 -2 .0 00 ME ti [...] 20 9- 0- 00 06 TO ve MO 76 20 20 07 WN N 00 [...] 34 4- 0- 00 24 LD ve IN 59 20 20 AI ED 31 10 [...] 34 4- 4- 00 24 LD ve IN 59 20 20 AI ED 31 10 [...] 82 1- 0- 00 33 LD ve IN 07 20 20 AI IL 40 09 [...] DOS Code Location Performer Comment DRUG TEST 54917 [facility] QUAL DIR INC INC OPTICAL OBS PER DAY DRUG TEST 71916 [facility] QUAL DIR INC INC OPTICAL OBS PER DAY DRUG TEST 35031 [facility] QUAL [facility]IR [place] [address] [facility] LACT[facility] COMPREHEN 13775 [facility] SIVE 7 [facility] METABOLIC E [facility] DUP-SCAN 02683 [facility] XTR VEINS 7 [facility] COMPLETE E E [facility]OSP[facility]ALS [facility] BILATERAL STUDY BLOOD 64406 [facility] COUNT 7 [facility] COMPLETE E E AUTOMATED HOSPITALS HOSPITALS NATRIURET 61419 [facility] IC 7 [facility] PEPTIDE E E HOSPITALS HOSPITALS CREATINE 45249 [facility] KINASE 7 [facility] TOTAL E E HOSPITALS HOSPITALS DRUG TEST 68672 [facility] PRSMV 7 [facility] QUAL DIR INC INC OPTICAL OBS PER DAY DRUG TEST 76426 [facility] PRSMV 7 [facility] QUAL DIR INC INC OPTICAL OBS PER DAY DRUG TEST 02083 [facility] PRSMV 7 [facility] QUAL DIR INC INC OPTICAL OBS PER DAY DRUG TST G0477 [facility] PRESUMP;C 6 [facility] PBL BEING INC INC READ DC OPT OBV ONLY DRUG TST G0477 [facility] PRESUMP;C 6 [facility] PBL BEING INC INC READ DC OPT OBV ONLY HEMOGLOBI 17177 [facility] N 6 [facility] GLYCOSYLA INC INC LATA A1C BLOOD 13066 [facility] COUNT 6 [facility] COMPLETE INC INC AUTO&AUTO DIFRNTL WBC PPSV23 35140 [facility] VACCINE 2 6 PHYSICIAN BETO YRS OR S GROUP OLDER FOR SUBQ/IM USE COMPREHEN 14034 [facility] SIVE 6 [facility] METABOLIC INC INC PANEL IM ADM 11661 [facility] PRQ ID 6 PHYSICIAN BETO SUBQ/IM S [...] METH P DAY 8-14 DRUG CL REMOVAL 01260 [facility]ULIA IMPLANT 6 MAHIN MI DEEP APPLICATI 20449 [facility] JULIA ON RIGID 6 MAHIN MI TOTAL CONTACT LEG CAST RADIOLOGI 46650 GEETHA CONDE ALL C 6 MEDICAL EXAMINATI IMAGING ON FOOT 2 ASS VIEWS RADEX 97012 [facility] FOOT 6 [facility] COMPLETE INC INC MINIMUM 3 VIEWS ANES OPEN 21303 [facility] PROC 6 ANESTH NEL BONES OF THE LOWER BLUE LEG/ANKLE /FOOT NOS BLOOD 83329 [facility] COUNT 6 [facility] COMPLETE INC INC AUTO&AUTO DIFRNTL WBC WALKING L4360 [facility] JULIA BOOT 6 MAHIN MI PNEUMATC &/ VACUUM PREFAB CUSTM FIT ADD LOW L2840 [facility] J[facility]IA EXTREM 6 MAHIN MI ORTHOTIC TIB LENGTH SOCK FX/= EA RADIOLOGI 37962 GEETHA CONDE ALL C 6 MEDICAL EXAMINATI IMAGING ON KNEE ASS 1/2 VIEWS RADIOLOGI 42100 GEETHA CONDE ALL C 6 MEDICAL EXAMINATI IMAGING ON FOOT 2 ASS VIEWS RADIOLOGI 20317 GEETHA CONDE ALL C 6 MEDICAL EXAMINATI IMAGING ON CHEST ASS SINGLE VIEW FRONTAL DRUG TST G0477 [facility] PRESUMP;C 6 [facility] PBL BEING INC INC READ DC OPT OBV ONLY DRUG 22758 [facility] SCREENING 6 [facility] OPIOIDS INC INC & OPIATE ANALOGS 5/MORE ARTHROCEN 33409 [facility] TESIS 6 [facility] ASPIR&/IN INC INC J MAJOR JT/BURSA W/O US INJECTION J1030 [facility] METHYLPRE INC INC DNISOLONE ACETATE 40 MG PROSTATE G0103 [facility] CANCER 6 [facility] SCREENING INC INC ; PSA TEST COMPREHEN 51613 [facility] SIVE 6 [facility] [address] [facility] PROSTATE 6 [facility] SPECIFIC INC INC ANTIGEN FREE BLOOD 07345 [facility] COUNT 6 [facility] COMPLETE INC INC AUTO&AUTO DIFRNTL WBC HEMOGLOBI 44388 [facility] N 6 [facility] GLYCOSYLA INC INC LATA A1C MRI 26724 [facility] SPINAL 6 [facility] CANAL INC INC LUMBAR W/O CONTRAST MATERIAL DRUG TST G0477 [facility] PRESUMP;C 6 [facility] PBL BEING INC INC READ DC OPT OBV ONLY DRUG TST G0477 [facility] PRESUMP;C 6 [facility] PBL BEING INC INC READ DC OPT OBV ONLY ALBUMIN 17006 [facility] URINE 6 [facility] MICROALBU INC INC MIN QUANTIATI VE HEMOGLOBI 95050 [facility] N 6 [facility] GLYCOSYLA INC INC LATA A1C BASIC 44549 [facility] METABOLIC 6 [facility] PANEL INC INC CALCIUM TOTAL DRUG 45382 [facility] SCREEN 6 [facility] LIST A INC INC SINGLE DRUG CLASS METHOD NON-INVAS 77623 RAYMOND DAVIS 0 MEDICAL [facility] PHYSIOLOG IMAGING IC STUDY ASSOCIATE EXTREMITY S 3 LEVLS GINGIVOPL 74834 LETTY SAENZ ASTY EACH 0 , NAMRATA OTT W W SPECIFY ORTHOPANT 93756 LETTY SAENZ OGRAM 0 , NAMRATA OTT THERAPEUT 46686 SUYAPA LACY, HAYDEN PX 1/> 9 FAMILY KURT R AREAS CHIROPRAC EACH 15 TIC MIN EXERCISES CHIROPRAC 61498 SHIRIN RODRIGUES 9 FAMILY KURT R MANIPULAT CHIROPRAC [place] TIC SPINAL 3-4 REGIONS APPL 61850 SUYAPA LACY MODALITY 9 FAMILY KURT R 1/> AREAS CHIROPRAC ELEC TIC STIMJ UNATTENDE D APPL 05024 SHA RODRIGUES 9 FAMILY KURT R 1/> AREAS CHIROPRAC TRACTION TIC MECHANICA L APPL 91955 SUYAPA LACY MODALITY 9 FAMILY KURT R 1/> AREAS CHIROPRAC ELEC TIC STIMJ UNATTENDE D SELF-CARE 96701 MAGGIE LACY, /HOME 9 FAMILY ARNOLD H MGMT CHIROPRAC TRAINING TIC EACH 15 MINUTES CHIROPRAC 46630 MAGGIE LACY, TIC 9 FAMILY ARNOLD H MANIPULAT CHIROPRAC [place] TIC SPINAL 3-4 REGIONS APPL 76601 SUYAPA LACY, MODALITY 9 FAMILY KURT R 1/> AREAS CHIROPRAC ELEC TIC STIMJ EA 15 MIN THERAPEUT 26726 MAGGIE LACY, IC PX 1/> 9 FAMILY ARNOLD H AREAS CHIROPRAC EACH 15 TIC MIN EXERCISES CHIROPRAC 34797 SUYAPA LACY, TIC 9 FAMILY KURT R MANIPULAT CHIROPRAC [place] TIC SPINAL 3-4 REGIONS RADEX 52764 SUYAPA LACY, SPINE 9 FAMILY KURT R LUMBOSACR CHIROPRAC AL 2/3 TIC VIEWS THERAPEUT 96450 SUYAPA LACY, IC PX 1/> 9 FAMILY KURT R AREAS CHIROPRAC EACH 15 TIC MIN EXERCISES RADEX 20592 SUYAPA LACY, SPINE 9 FAMILY KURT R CERVICAL CHIROPRAC 2 OR 3 TIC VIEWS CHIROPRAC 20399 SUYAPA LACY, TIC 9 FAMILY KURT R MANIPLTV CHIROPRAC TX TIC EXTRASPIN AL 1/> REGION SELF-CARE 04079 SUYAPA LACY, /HOME 9 FAMILY KURT R MGMT CHIROPRAC TRAINING TIC EACH 15 MINUTES APPL 33416 SUYAPA LACY, MODALITY 9 FAMILY KURT R 1/> AREAS CHIROPRAC TRACTION TIC MECHANICA L APPL 20656 SUYAPA LACY, MODALITY 9 FAMILY KURT R 1/> AREAS CHIROPRAC ELEC TIC STIMJ UNATTENDE D ECG 92505 [facility] ROUTINE 9 [facility] ECG INC INC W/LEAST 12 LDS TRCG ONLY W/O I&R BILIRUBIN 57840 [facility] DIRECT 9 [facility] INC INC SEDIMENTA 80472 [facility] TION RATE 9 [facility] RBC INC INC NON-AUTOM ATED RADIOLOGI 97469 [facility] C EXAM 9 [facility] CHEST 2 INC INC VIEWS FRONTAL&L ATERAL ECG 71476 [facility] CHACKO, ROUTINE 9 [facility] W/LEAST PROF SERV 12 LDS I&R ONLY LIPID 61196 [facility] PANEL 9 [facility] INC INC HEMOGLOBI 73576 [facility] N 9 [facility] GLYCOSYLA INC INC LATA A1C THYROID 78202 [facility] HORM 9 [facility] UPTK/THYR INC INC OID HORMONE BINDING RATIO BLOOD 24488 [facility] COUNT 9 [facility] COMPLETE INC INC AUTO&AUTO DIFRNTL WBC COMPREHEN 21550 [facility] SIVE 9 [facility] [place] [address] [facility] THYROID 9 [facility] STIMULATI [place] [address] [facility] THYROXINE 9 [facility] TOTAL INC INC PROSTATE G0103 [facility] DLOL CANCER 9 [facility] SCREENING INC INC ; PSA TEST Encounters Encounter Start End Date Code Location Performer Type Date [facility] 7 7 [facility] OUTPATIEN [facility] - 7 7 [facility]41 [facility] T V[facility] S [facility]PITALS EMERGENCY 94207 7 7 [facility] DEPARTMEN E T VISIT HOSPITALS HIGH/URGE NT SEVERITY [facility]OS[facility] 7 7 [facility] 96874 [facility] T VISIT S GROUP 15 MINUTES OFFICE 68579 [facility] PHYSICIAN T VISIT S GROUP 25 MINUTES [facility] - 7 7 [facility] OUTPATI[facility] INC T [facility] - 7 [facility] OUTPATI[facility] INC T OFFICE 46577 [facility] 7 PHYSICIAN T VISIT S GROUP 15 MINUTES OFFICE 01577 [facility] 6 6 PHYSICIAN T VISIT S GROUP 25 MINUTES [facility] - 6 6 [facility] OUTPATIEN INC T [facility] - 6 6 [facility] OUTPATIEN INC T OFFICE 54390 [facility] 6 6 PHYSIC[facility] BETO T VISIT S GROUP 25 MINUTES [facility] T OFFICE 72900 [facility] 6 6 PHYSICIAN BETO T VISIT S GROUP 25 MINUTES OFFICE 04384 [facility] 6 6 PHYSICIAN BETO T VISIT S GROUP 15 MINUTES OFFICE 77305 [facility] 6 6 [facility]IN MI T VISIT 15 MINUTES [facility] 85218 [facility] 10 [facility]UTES [facility] T OFFICE 63481 [facility] 6 6 [facility]HIN MI T VISIT 15 MINUTES [facility] T OFFICE 36623 [facility] 6 6 PHYSICIAN BETO T VISIT S GROUP 10 MINUTES OFFICE 15551 [facility]PAT[facility] 6 6 MAHIN MI T NEW 30 MINUT[facility] OFFICE 21785 [facility]ES [facility] OFF[facility] [id number] [facility] 10 [facility]UTES [facility] OFF[facility] 64054 [facility] OUTPATIEN 6 6 PHYSICIAN BETO T [facility]ISIT S GROUP 10 MINUTES [facility] 6 6 [facility] - 6 6 [facility] T OFFICE 93854 [facility] OUTPATIEN 6 6 PHYSICIAN BETO T VISIT S GROUP 15 MINUTES Emergency SIMON Blair MD (ER) 4 00:31 4 01:15 [facility] OFFICE 52946 KASH HEWITT OUTPATIEN 0 0 [facility] T [facility]ISIT 15 MINUTES [facility] 0 0 [facility] T OFF[facility] 89750 NEDA RODRIGUES 9 9 FAMILY KURT R T NEW 20 CHIROPRAC MINUTES TIC OFFICE 02422 KASH HEWITT, CONSULTAT 9 9 [facility] PATIENT 60 MIN [facility] 9 9 [facility] T OFFICE 00714 MONIQUE AMAYA OUTPATIEN 9 9 INNA Zaidi T VISIT 15 MINUTES OFFICE 28015 MONIQUE AMAYA OUTPATIEN 9 9 INNA NÚÑEZ 60 MINUTES
--- OUTSIDE RECORDS SUMMARY | 2017-04-20 07:10 | External Medical Summary Rpt ---
Author Author , JEFFREY MURPHY Address Unknown Phone [email or web address] Care Team Providers Care Pipeline Operator Name Role Phone INNA AMAYA, Unavailable Unavailable INNA AMAYA STEPHEN A, Unavailable Unavailable JIMBO CHACKO HARSHAL, HARSHAL Unavailable Unavailable CONDE ALL, CONDE ALL Unavailable Unavailable JULIA MI, JULIA Unavailable Unavailable MI HEWITT JARRETT, Unavailable Unavailable HEWITT JARRETT FARIAS, Unavailable Unavailable HEWITTCARLOS BAEZ, Unavailable Unavailable [facility] Unavailable Unavailable [facility] STERLING LÓPEZ, Unavailable Unavailable STERLING LÓPEZ ECKERLINE JR, Unavailable Unavailable ECKERLINE JR FALLIS MAHIN, FALLIS Unavailable Unavailable MAHIN PATRICIA FERGUSONEY Unavailable Unavailable PHYLLIS BETO, PHYLLIS Unavailable Unavailable BETO KURT LACY, Unavailable Unavailable KURT LACY [facility] Unavailable Unavailable INC, [facility] NAMARTA SAENZ, Unavailable Unavailable NAMRATA SAEZN [facility], Unavailable Unavailable [facility] Unavailable Unavailable [facility], [facility], [facility] RENATA SWEENEY, Unavailable Unavailable RENATA SWEENEY [id number], Unavailable Unavailable [id number] Unavailable Unavailable [id number] [address] [id number], [facility] [id number] # [id number] CARINE KEY Unavailable Unavailable [facility] Unavailable Unavailable [facility]PITALS, [facility] Unavailable Unavailable #591, [id number] Purpose Continuity of Care Document - 03-21-2009 through 2016 Problems Code Diagnosis DOS Provider Status [id number] OTHER LONG 02-17-2017 [facility] CURRENT INC DRUG THERAPY G8929 OTHER 12-23-2016 [facility] CHRONIC PHYSICIANS PAIN GROUP E119 TYPE 2 12-12-2016 [facility] WITHOUT COMPLICATIO NS I10 ESSENTIAL 12-12-2016 [facility] R2243 LOC 12-12-2016 [facility] [place] BILATERAL R600 LOCALIZED 12-12-[address] [facility] Z0389 ENCOUNTER 12-12-2016 [place] [facility] SUSPCT [facility] COND RULED OUT Z720 TOBACCO USE 12-12-2016 [facility] B1920 UNS VIRAL 11-25-2016 [facility] HEPATITIS C PHYSICIANS WITHOUT GROUP HEPATIC COMA E663 OVERWEIGHT 11-25-2016 [facility] M5116 INTERVERTEB 11-25-2016 [facility] RAL DISC PHYSICIANS D/O GROUP W/RADICULOP ATHY LUMB RGN M545 LOW BACK 11-25-2016 [facility] PAIN PHYSICIANS GROUP M1990 UNSPECIFIED 09-07-2016 [facility] PHYSIC[facility]ANS OSTEOARTHRI GROUP TIS UNSPECIFIED SITE Z139 ENCOUNTER 07-29-2016 [facility] FOR PHYSICIANS SCREENING GROUP UNSPECIFIED Z23 ENCOUNTER 07-29-2016 [facility] FOR PH[facility]IANS IMMUNIZATIO GROUP N B353 TINEA PEDIS 06-08-2016 [facility]ANS GROUP M9983 OTHER 06-08-2016 [facility] BIOMECHANIC PHYSICIANS AL LESIONS GROUP OF LUMBAR REGION M722 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 R62156 PAIN IN 04-07-2016 FALL[facility] MAHIN RIGHT FOOT D54817 PAIN IN 04-07-2016 FALL[facility] MAHIN LEFT FOOT G8918 OTHER ACUTE 03-31-2016 FALLIS MAHIN POSTPROCEDU RAL PAIN I890 LYMPHEDEMA 03-31-2016 FALLIS MAHIN NOT ELSEWHERE CLASSIFIED G33421X DISPLACED 03-31-2016 FALLIS MAHIN FX 3RD METATARSAL LT FT SUBSQT FX RTN [id number] DSPL FX 03-31-2016 FALLIS MAHIN PROX PHALANX LT GREAT TOE SBSQT FX RTN Z4789 ENCOUNTER 03-17-2016 [place] [facility] AFTERCARE K06163X UNS 02-29-2016 COMMUNITY FRACTURE LT ANESTH OF TOES THE BLUE INITIAL ENC CLOS FRACTURE E1142 TYPE 2 02-25-2016 FALLIS MAHIN DIABETES MELLITUS W/DIAB POLYNEUROPA THY M2570 OSTEOPHYTE 02-25-2016 FALLIS MAHIN UNSPECIFIED JOINT F88058A DISPLACED 02-25-2016 FALLIS MAHIN FX 3RD METATARSAL LT FT INIT CLOS FX [id number] DSPL FX 02-25-2016 FALLIS MAHIN PROX PHALANX LT GREAT TOE INIT CLOS FX [id number] UNS 02-24-2016 [facility] FRACTURE LT PHYSICIANS FOOT GROUP INITIAL ENC CLOS FRACTURE T148 OTHER 02-24-2016 [facility] INJURY OF PHYSICIANS UNSPECIFIED GROUP BODY REGION M38153 PAIN IN 02-21-2016 [facility] R079 CHEST PAIN 02-21-2016 [place] UNSPECIFIED [facility] [id number] UNSPECIFIED 02-21-2016 [place] INJURY OF MEDICAL THORAX IMAGING ASS INITIAL ENCOUNTER B9774ZT UNS INJURY 02-21-2016 [place] LT LOWER MEDICAL LEG INITIAL IMAGING ASS ENCOUNTER F83808H NONDSPL FX 02-21-2016 [place] 3RD MEDICAL METATARSAL IMAGING ASS LT FT INIT ENC CLOS FX [id number] DSPL FX 02-21-2016 [place] PROX PHALNX MEDICAL LT LESSER IMAGING ASS TOES INIT YONY FX F92481 PRIMARY 02-09-2016 [facility] TIS INC UNSPECIFIED SHOULDER M170 BILATERAL 12-15-2015 [facility] OSTEOARTHRI INC TIS OF KNEE M5136 OTH 11-30-2015 [facility] RAL DISC INC DEGEN LUMBAR REGION 4439 UNSPECIFIED 10-13-2009 [facility] PERIPHERAL JARRETT VASCULAR DISEASE 4541 VARICOSE 10-13-2009 [facility] VEINS LOWER JARRETT EXTREMITIES W/INFLAMMAT ION 4660 ACUTE 09-30-2009 [facility] 45272 CHRONIC 09-23-2009 BERT SAENZ W IS UNSPECIFIED 7224 DEGENERATIO 08-10-2009 [place] N OF FAMILY CERVICAL CHIROPRACTI INTERVERTEB C RAL DISC 18890 DEGEN 08-10-2009 [facility] 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 INTERVERTEB RAL DISC 83231 DEGEN 08-10-2009 [facility] LUMBAR/LUMB FAMILY OSACRAL CHIROPRACTI INTERVERTEB C RAL DISC 7395 NONALLOPATH 08-10-2009 [facility] IC LESION FAMILY OF PELVIC CHIROPRACTI REGION NEC C 45030 DIAB W/O 07-28-2009 [facility] COMP TYPE [facility] II/UNS NOT HOSPITAL STATED PROF DARYA UNCNTRL 27590 COR 07-28-2009 [facility] UNSPEC HOSP[facility] TYPE VESSEL PROF [place] T [address] PERIPHERAL 07-28-2009 [facility] CLASSIFIED PROF SERV ELSW 21189 OBSTRUCTIVE 07-28-2009 [facility] WITH PROF SERV EXACERBATIO N 83489 OBESITY, 03-21-2009 MONIQUE, UNSPECIFIED INNA W 4011 ESSENTIAL 03-21-2009 MONIQUE, HYPERTENSIO INNA W N, BENIGN 7019 UNSPECIFIED 03-21-2009 INNA AMAYA HYPERTROPHI C&ATROPHIC CONDITION SKIN Medications Na ND Rx Da Fi Fi [...] .0 00 ME ti NO 00 9- 1- 00 06 TO ve MN 51 20 20 08 WN IL 80 [...] 20 2- 0- 00 06 TO ve KS 76 20 20 08 WN N 00 [...] 20 7- 2- 00 06 TO ve KS 76 20 20 08 WN N 00 [...] 00 0- 2- 00 06 TO ve MN 51 20 20 08 WN IL 80 [...] CY NT HI AN A GA 68 03 04 90 30 00 HO Ac BA 00 -2 -1 .0 00 ME ti PE 10 3- 4- 00 06 TO ve NT 00 20 20 08 WN IN 70 17 17 01 3 61 PH 80 AR 0 MA MG CY TA OF BL ET CY NT HI AN A OX [...] 00 3- 4- 00 06 TO ve MN 51 20 20 08 WN IL 80 17 17 01 -H [address] AR Z MA 10 CY -1 2. OF 5 MG CY NT TA HI B AN A GL 60 03 04 60 [...] 20 7- 7- 00 06 TO ve KS 76 20 20 08 WN N 00 17 17 01 HC 5 58 PH L AR 1, MA 00 CY 0 MG OF TA CY BL NT ET HI AN A GA 68 02 03 90 30 00 HO Ac BA 00 -2 -1 .0 00 ME ti PE 10 3- 7- 00 06 TO ve NT 00 20 20 08 WN IN 70 17 17 01 3 61 PH 80 AR 0 MA MG CY TA OF BL ET CY NT HI AN A LI 68 02 03 60 30 00 HO Ac SI 18 -2 -1 .0 00 ME ti NO 00 3- 7- 00 06 TO ve MN 51 20 20 08 WN IL 80 [...] ET NT HI AN A LI 68 01 02 60 30 00 HO Ac SI 18 -2 -1 .0 00 ME ti NO 00 5- 7- 00 06 TO ve MN 51 20 20 08 WN IL 80 [...] 20 5- 7- 00 06 TO ve KS 76 20 20 08 WN N 00 [...] 07 WN ZA 93 16 17 84 MN 2 83 PH IN AR E MA 10 CY MG OF TA CY BL NT ET HI AN A LI 68 12 01 60 30 00 HO Ac SI 18 -2 -2 .0 00 ME ti NO 00 9- 0- 00 06 TO ve MN 51 20 20 07 WN IL 80 [...] 12 01 30 30 00 HO Ac MN 00 -2 -2 .0 00 ME ti [...] 20 9- 0- 00 06 TO ve KS 76 20 20 07 WN N 00 [...] CY ET NT HI AN A ME 00 08 08 1 21 6 RI 84 AR Ac TH 60 -2 -3 .0 TE 68 NO ti YL 34 4- 0- 00 24 LD ve MN 59 20 20 AI ED 31 10 [...] 34 4- 4- 00 24 LD ve MN 59 20 20 AI ED 31 10 [...] 82 1- 0- 00 33 LD ve MN 07 20 20 AI IL 40 09 [...] OR OLDE R FOR SUBQ /IM USE Procedures Procedure DOS Code Location Performer Comment DRUG TEST 08855 [facility] QUAL DIR INC INC OPTICAL OBS PER DAY DRUG TEST 22794 [facility] QUAL DIR INC INC OPTICAL OBS PER DAY DRUG TEST 71446 [facility] QUAL DIR INC INC OPTICAL OBS PER DAY COMPREHEN 39234 [place] SIVE 7 [facility] METABOLIC E E PANEL [facility] CREATINE 32958 [place] KINASE 7 [facility] [place] [address] [facility] LACTATE 7 [facility]ALTHCAR HEALTH[facility] E [facility] NATRIURET 46266 [facility] IC 7 [facility]ALTH[facility]ALTH[facility] PEPTIDE E E [facility]OSP[facility] DUP-SCAN 79262 [place] [facility] XTR VEINS 7 MEDICAL COMPLETE SERV FOUNDATIO BILATERAL N STUDY BLOOD 46560 [facility] COUNT 7 [facility]ALTH[facility]ALTHCAR COMPLETE E E AUTOMATED HOSPITALS HOSPITALS DRUG TEST 70575 [facility] QUAL DIR INC INC OPTICAL OBS PER DAY DRUG TEST 31096 [facility] QUAL DIR INC INC OPTICAL OBS PER DAY DRUG TEST 50015 [facility] QUAL DIR INC INC OPTICAL OBS PER DAY DRUG TST G0477 [facility] PRESUMP;C [facility] PBL BEING INC INC READ DC OPT OBV ONLY DRUG TST G0477 [facility] PRESUMP;C 6 [facility] PBL BEING INC INC READ DC OPT OBV ONLY BLOOD 83592 [facility] COUNT 6 [facility] COMPLETE INC INC AUTO&AUTO DIFRNTL WBC PPSV23 37172 [facility] PHYLLIS VACCINE 2 6 PHYSICIAN BETO YRS OR S GROUP OLDER FOR SUBQ/IM USE COMPREHEN 45170 [facility] SIVE 6 [facility] METABOLIC INC INC PANEL IM ADM 98243 [facility] PRQ ID 6 PHYSICIAN BETO SUBQ/IM S GROUP NJXS 1 VACCINE HEMOGLOBI 83937 [facility] N 6 [facility] GLYCOSYLA INC INC LATA A1C DRUG TST G0477 [facility] PRESUMP;C 6 [facility] PBL BEING INC INC READ DC OPT OBV ONLY FOOT L3020 [facility] JULIA INSRT 6 MAHIN MI REMV MOLD PT MDL LNGTUDNL/ MT SUPP EA DRUG TST G0477 [facility] PRESUMP;C [facility] PBL BEING INC INC READ DC OPT OBV ONLY DRUG TEST G0481 [facility] DEFINITV [address] [facility] [address] ID INC INC METH P DAY 8-14 DRUG CL REMOVAL 15655 [facility]ULIA IMPLANT 6 MAHIN MI DEEP RADEX 38315 [facility] FOOT 6 [facility] COMPLETE INC INC MINIMUM 3 VIEWS RADIOLOGI 27960 [place] OCNDE ALL C 6 MEDICAL EXAMINATI IMAGING ON FOOT 2 ASS VIEWS APPLICATI 11577 [facility] JULIA ON RIGID 6 MAHIN MI TOTAL CONTACT LEG CAST ANES OPEN 88962 [facility] 6 ANESTH NEL BONES OF THE LOWER BLUE LEG/ANKLE /FOOT NOS BLOOD 49925 [facility] COUNT [facility] COMPLETE INC INC AUTO&AUTO DIFRNTL WBC ADD LOW L2840 [facility] JULIA EXTREM 6 MAHIN MI ORTHOTIC TIB LENGTH SOCK FX/= EA WALKING L4360 HONEY STOCKTONANT BOOT 6 MAHIN MI PNEUMATC &/ VACUUM PREFAB CUSTM FIT RADIOLOGI 01920 [facility] CONDE ALL C 6 MEDICAL EXAMINATI IMAGING ON FOOT 2 ASS VIEWS RADIOLOGI 83130 [facility] CONDE ALL C 6 MEDICAL EXAMINATI IMAGING ON CHEST ASS SINGLE VIEW FRONTAL RADIOLOGI 29634 [facility] CONDE ALL C 6 MEDICAL EXAMINATI IMAGING ON KNEE ASS 1/2 VIEWS DRUG TST G0477 [facility] PRESUMP;C 6 [facility] PBL BEING INC INC READ DC OPT OBV ONLY DRUG 00559 [facility] SCREENING 6 [facility] OPIOIDS INC INC & OPIATE ANALOGS 5/MORE ARTHROCEN 50860 [facility] TESIS [facility] ASPIR&/IN INC INC J MAJOR JT/BURSA W/O US INJECTION J1030 [facility] METHYLPRE INC INC DNISOLONE ACETATE [address] [place] [address] [facility] PROSTATE 6 [facility] SPECIFIC INC INC ANTIGEN FREE HEMOGLOBI 71433 [facility] N 6 [facility] GLYCOSYLA INC INC LATA A1C COMPREHEN 48775 [facility] SIVE 6 [facility] METABOLIC INC INC PANEL BLOOD 42888 [facility] COUNT 6 [facility] COMPLETE INC INC AUTO&AUTO DIFRNTL WBC PROSTATE G0103 [facility] CANCER 6 [facility] SCREENING INC INC ; PSA TEST MRI 60999 [facility] SPINAL 6 [facility] CANAL INC INC LUMBAR W/O CONTRAST MATERIAL DRUG TST G0477 [facility] PRESUMP;C 6 [facility] PBL BEING INC INC READ DC OPT OBV ONLY DRUG TST G0477 [facility] PRESUMP;C 6 [facility] PBL BEING INC INC READ DC OPT OBV ONLY ALBUMIN 25079 [facility] URINE 6 [facility] MICROALBU INC INC MIN QUANTIATI VE HEMOGLOBI 16160 [facility] N 6 [facility] GLYCOSYLA INC INC LATA A1C BASIC 11464 [facility] METABOLIC 6 [facility] PANEL INC INC CALCIUM TOTAL DRUG 71311 [facility] SCREEN 6 [facility] LIST A INC INC SINGLE DRUG CLASS METHOD NON-INVAS 60212 GEETHA GARAYCHER, RAYMOND 0 MEDICAL STERLING PHYSIOLOG IMAGING IC STUDY ASSOCIATE EXTREMITY S 3 LEVLS GINGIVOPL 90307 LETTY SAENZ ASTY EACH 0 , NAMRATA OTT QUADRANT W W SPECIFY ORTHOPANT 06354 LETTY SAENZ OGRAM 0 , NAMRATA OTT APPL 57657 SUYAPA LACY, SHA 9 FAMILY KURT R 1/> AREAS CHIROPRAC ELEC TIC STIMJ UNATTENDE D THERAPEUT [address] [place] P[place] 1/> 9 FAMILY KURT R AREAS CHIROPRAC EACH 15 TIC MIN EXERCISES CHIROPRAC 85180 SHIR[place] RODRIGUES 9 FAMILY KURT R MANIPULAT CHIROPRAC [place] TX TIC SPINAL 3-4 REGIONS CHIROPRAC 85058 SHIRIN RODRIGUES 9 FAMILY KURT R MANIPULAT CHIROPRAC [place] TX TIC SPINAL 3-4 REGIONS SELF-CARE 45257 SUYAPA LACY, /HOME 9 FAMILY KURT R MGMT CHIROPRAC TRAINING TIC EACH 15 MINUTES THERAPEUT 86368 [place] PX 1/> 9 FAMILY KURT R AREAS CHIROPRAC EACH 15 TIC MIN EXERCISES APPL 13353 SHA RODRIGUES 9 FAMILY KURT R 1/> AREAS CHIROPRAC ELEC TIC STIMJ UNATTENDE D APPL 61329 SHA RODRIGUES 9 FAMILY KURT R 1/> AREAS CHIROPRAC ELEC TIC STIMJ EA 15 MIN APPL 12420 SHA RODRIGUES 9 FAMILY KURT R 1/> AREAS CHIROPRAC TRACTION TIC MECHANICA L APPL 03100 SHA RODRIGUES 9 FAMILY KURT R 1/> AREAS CHIROPRAC ELEC TIC STIMJ UNATTENDE D APPL 14283 SUYAPA LACY, MODALITY 9 FAMILY KURT R 1/> AREAS CHIROPRAC TRACTION TIC MECHANICA L THERAPEUT 08752 SUYAPA LACY IC PX 1/> 9 FAMILY KURT R AREAS CHIROPRAC EACH 15 TIC MIN EXERCISES CHIROPRAC 50929 SUYAPA LACY TIC 9 FAMILY KURT R MANIPLTV CHIROPRAC TX TIC EXTRASPIN AL 1/> REGION SELF-CARE 95404 SUYAPA LACY, /HOME 9 FAMILY KURT R MGMT CHIROPRAC TRAINING TIC EACH 15 MINUTES RADEX 67201 SUYAPA LACY SPINE 9 FAMILY KURT R CERVICAL CHIROPRAC 2 OR 3 TIC VIEWS CHIROPRAC 28089 SUYAPA LACY [facility] 9 FAMILY KURT R MANIPULAT CHIROPRAC [place] TX TIC SPINAL 3-4 REGIONS RADEX 13256 SUYAPA ALCY SPINE 9 FAMILY KURT R LUMBOSACR CHIROPRAC AL 2/3 [place] [address] [facility] THYROID 9 [facility] STIMULATI INC INC NG HORMONE TSH SEDIMENTA 61662 [facility] TION RATE 9 [facility] RBC INC INC NON-AUTOM ATED THYROID 45733 [facility] HORM 9 [facility] UPTK/THYR INC [place] [address] [facility] THYROXINE 9 [facility] TOTAL INC INC BILIRUBIN 10810 [facility] DIRECT 9 [facility] INC INC COMPREHEN 80930 [facility] SIVE 9 [facility] METABOLIC INC INC PANEL LIPID 76543 [facility] PANEL 9 [facility] INC INC HEMOGLOBI 36529 [facility] N 9 [facility] GLYCOSYLA INC INC LATA A1C RADIOLOGI 41348 [facility] C EXAM 9 [facility] CHEST 2 INC INC VIEWS FRONTAL&L ATERAL PROSTATE G0103 [facility] CANCER 9 [facility] SCREENING INC INC ; PSA TEST ECG 44227 [facility] GINNA, ROUTINE 9 [facility] ECG [facility] W/LEAST PROF SERV 12 LDS I&R ONLY ECG 73496 [facility] ROUTINE 9 [facility] ECG INC INC W/LEAST 12 LDS TRCG ONLY W/O I&R BLOOD 51499 [facility] COUNT 9 [facility] COMPLETE INC INC AUTO&AUTO DIFRNTL WBC Encounters Encounter Start End Date Code Location Performer Type Date [facility] 7 7 [facility] 7 7 [facility] OUTPATIEN INC T OFFICE 65937 [facility] PHYLLIS OUTPATIEN 7 7 PHYSICIAN T VISIT S GROUP 15 MINUTES EMERGENCY 89861 [facility] ASCENCIOKER[facility] 7 7 MEDICAL JR DEPARTMEN SERV T VISIT FOUNDATIO HIGH/URGE N NT SEVERITY [facility] OFFICE 63757 [facility] PHYLLIS OUTPATIEN 7 7 PHYSICIAN T VISIT S GROUP 15 MINUTES [facility] 7 7 [facility] OUTPATIEN INC T OFFICE 22702 [facility] PHYLLIS OUTPATIEN 7 7 PHYSICIAN T VISIT S GROUP 25 MINUTES [facility] 7 7 [facility] OUTPATIEN INC T OFFICE 22614 [facility] PHYLLIS OUTPATIEN 7 7 PHYSICIAN T VISIT S GROUP 15 MINUTES [facility]PAT[facility]EN [facility] OUTPATIEN INC T OFFICE 25281 [facility] PHYLLIS OUTPATIEN 6 6 PHYSICIAN T VISIT S GROUP 25 MINUTES OFFICE 62889 [facility] PHYLLIS OUTPATIEN 6 6 PHYSICIAN BETO T VISIT S GROUP 25 MINUTES [facility] 6 6 [facility] T [facility] 6 6 [facility] OUTPATIEN INC T OFFICE 67636 [facility] PHYLLIS OUTPATIEN 6 6 PHYSICIAN BETO T VISIT S GROUP 25 MINUTES OFFICE 41742 [facility] PHYLLIS OUTPATIEN 6 6 PHYSICIAN BETO T VISIT S GROUP 15 MINUTES OFFICE 63546 [facility] J[facility]IA OUTPATIEN 6 6 MAHIN MI T VISIT 15 MINUTES OFFICE 16961 [facility] 6 6 [facility] T VISIT INC 10 MINUTES [facility] 6 6 [facility] T [facility] 6 6 [facility] OUTPATIEN INC T OFFICE 47682 [facility] OUTPATIEN 6 6 MAHIN MI T VISIT 15 MINUTES [facility] 6 6 [facility] OUTPATIEN INC T OFFICE 34099 [facility] PHYLLIS OUTPATIEN 6 6 PHYSICIAN BETO T VISIT S GROUP 10 MINUTES OFFICE 28932 [facility] OUTPATIEN 6 6 MAHIN MI T NEW 30 MINUTES [facility]OSP[facility] 6 6 [facility] OUTPATIEN INC T OFFICE 52882 [facility] 6 6 [facility] T VISIT INC 10 MINUTES [facility] 6 6 [facility]PATIEN INC T [facility] 6 6 [facility] T [facility] 6 6 [facility]PAT[facility] T [facility] 6 6 [facility] OUTPATIEN INC T OFFICE 83688 [facility] 6 6 [facility] T VISIT INC 10 MINUTES OFFICE 94456 [facility] OUTPATIEN 6 6 PHYSICIAN BETO T VISIT S GROUP 10 MINUTES [facility] 6 6 [facility] INC [facility] 6 6 [facility] - 6 6 [facility] OUTPATIEN INC T OFFICE 00003 [facility] OUTPATIEN 6 6 PHYSICIAN BETO T VISIT S GROUP 15 MINUTES OFFICE 59950 [facility] OUTPATIEN 0 0 [facility] T VISIT 15 MINUTES [facility] - 0 0 [facility]PATIEN INC T OFFICE 62963 KASH HEWITT, CONSULTAT 9 9 [facility] PATIENT 60 MIN OFFICE 76054 [facility] 9 9 [facility] 20 CHIROPRAC MINUTES [facility] - 9 9 [facility] OUTPATIEN [facility] T OFFICE 77421 MONIQUE AMAYA OUTPATIEN 9 9 INNA Zaidi T VISIT 15 MINUTES OFFICE 84040 MONIQUE AMAYA OUTPATIEN 9 9 INNA Zaidi T NEW 60 MINUTES
--- OUTSIDE RECORDS SUMMARY | 2017-04-20 07:10 | External Medical Summary Rpt ---
Author Author , JEFFREY MURPHY Address Unknown Phone [email or web address] Care Team Providers Care Pst Supervisor Name Role Phone INNA AMAYA, Unavailable Unavailable INNA AMAYA STEPHEN A, Unavailable Unavailable JIMBO CHACKO HARSHAL, HARSHAL Unavailable Unavailable CONDE ALL, CONDE ALL Unavailable Unavailable JULIA MI, JULIA Unavailable Unavailable MI HEWITT JARRETT, Unavailable Unavailable HEWITT JARRETT FARIAS, Unavailable Unavailable HEWITTCARLOS BAEZ, Unavailable Unavailable [facility] Un[facility]available [facility] STERLING LÓPEZ, Unavailable Unavailable STERLING LÓPEZ ECKERLINE JR, Unavailable Unavailable ECKERLINE JR FALLIS MAHIN, FALLIS Unavailable Unavailable MAHIN PATRICIA FERGUSONEY Unavailable Unavailable PHYLLIS BETO, PHYLLIS Unavailable Unavailable BETO KURT LACY, Unavailable Unavailable KURT LACY [facility] Unavailable Unavailable INC, [facility] NAMRATA SAENZ, Unavailable Unavailable NAMRATA SAENZ [facility], Unavailable Unavailable [facility] Unavailable Unavailable [facility], [facility] ERNATA SWEENEY, Unavailable Unavailable RENATA SWEENEY [id number], Unavailable Unavailable [id number] Unavailable Unavailable [id number] # [id number], [facility] [id number] # [id number] CARINE KEY Unavailable Unavailable NEL [facility] Unavailable Unavailable HOSPITALS, [facility] HOSPITALS [facility] Unavailable Unavailable #591, [id number] Purpose Continuity of Care Document - 03-21-2009 through 2016 Problems Code Diagnosis DOS Provider Status [id number] OTHER LONG 02-17-2017 [facility] CURRENT INC DRUG THERAPY G8929 OTHER 12-23-2016 [facility] CHRONIC PHYSICIANS PAIN GROUP E119 TYPE 2 12-12-2016 DIABET[facility] WITHOUT COMPLICATIO NS I10 ESSENTIAL 12-12-2016 PRIMARY [facility] R2243 LOC 12-12-2016 [facility] [place] BILATERAL R600 LOCALIZED 12-12-2016 [facility] Z0389 ENCOUNTER 12-12-2016 [place] [facility] SUSPCT [facility] COND RULED OUT Z720 TOBACCO USE 12-12-2016 [facility] B1920 UNS VIRAL 11-25-2016 [facility] HEPATITIS C PHYSICIANS WITHOUT GROUP HEPATIC COMA E663 OVERWEIGHT 11-25-2016 [facility] M5116 INTERVERTEB 11-25-2016 [facility] RAL DISC PHYSICIANS D/O GROUP W/RADICULOP ATHY LUMB RGN M545 LOW BACK 11-25-2016 [facility] PAIN PHYSICIANS GROUP M1990 UNSPECIFIED 09-07-2016 [facility] PH[facility]ANS OSTEOARTHRI GROUP TIS UNSPECIFIED SITE Z139 ENCOUNTER 07-29-2016 [facility] FOR PHYSICIANS SCREENING GROUP UNSPECIFIED Z23 ENCOUNTER 07-29-2016 [facility] FOR [facility]YSICIANS IMMUNIZATIO GROUP N B353 TINEA PEDIS 06-08-2016 [facility] M9983 OTHER 06-08-2016 [facility] BIOMECHANIC PHYSICIANS AL LESIONS GROUP OF LUMBAR REGION M722 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 R93100 PAIN IN 04-07-2016 FALL[facility] MAHIN RIGHT FOOT B77645 PAIN IN 04-07-2016 FALLIS MAHIN LEFT FOOT G8918 OTHER ACUTE 03-31-2016 FALLIS MAHIN POSTPROCEDU RAL PAIN I890 LYMPHEDEMA 03-31-2016 FALLIS MAHIN NOT ELSEWHERE CLASSIFIED X42903J DISPLACED 03-31-2016 FALL[facility] MAHIN FX 3RD METATARSAL LT FT SUBSQT FX RTN [id number] DSPL FX 03-31-2016 FALLIS MAHIN PROX PHALANX LT GREAT TOE SBSQT FX RTN Z4789 ENCOUNTER 03-17-2016 [place] [facility] OTHER [facility] AFTERCARE V21300N UNS 02-29-2016 COMMUNITY FRACTURE LT ANESTH OF TOES [facility] INITIAL ENC CLOS FRACTURE E1142 TYPE 2 02-25-2016 FALLIS MAHIN DIABETES MELLITUS W/DIAB POLYNEUROPA THY M2570 OSTEOPHYTE 02-25-2016 FALLIS MAHIN UNSPECIFIED JOINT S08869I DISPLACED 02-25-2016 FALLIS MAHIN FX 3RD METATARSAL LT FT INIT CLOS FX [id number] DSPL FX 02-25-2016 FALLIS MAHIN PROX PHALANX LT GREAT TOE INIT CLOS FX I48670V UNS 02-24-2016 [facility] FRACTURE LT PHYSICIANS FOOT GROUP INITIAL ENC CLOS FRACTURE T148 OTHER 02-24-2016 [facility] INJURY OF PHYSICIANS UNSPECIFIED GROUP BODY REGION M74125 PAIN IN 02-21-2016 [place] LEFT [facility]NEE [facility] R079 CHEST PAIN 02-21-2016 [place] UNSPECIFIED MEDICAL IMAGING ASS [id number] UNSPECIFIED 02-21-2016 [place] INJURY OF MEDICAL THORAX IMAGING ASS INITIAL ENCOUNTER O7845WP UNS INJURY 02-21-2016 [place] LT LOWER MEDICAL LEG INITIAL IMAGING ASS ENCOUNTER F51887P NONDSPL FX 02-21-2016 [place] 3RD MEDICAL METATARSAL IMAGING ASS LT FT INIT ENC CLOS FX [id number] DSPL FX 02-21-2016 [place] PROX PHALNX MEDICAL LT LESSER IMAGING ASS TOES INIT YONY FX M98051 PRIMARY 02-09-2016 [facility] TIS INC UNSPECIFIED SHOULDER M170 BILATERAL 12-15-2015 [facility] OSTEOARTHRI INC TIS OF KNEE M5136 OTH 11-30-2015 [facility] RAL DISC INC DEGEN LUMBAR REGION 4439 UNSPECIFIED 10-13-2009 [facility] PERIPHERAL JARRETT VASCULAR DISEASE 4541 VARICOSE 10-13-2009 [facility] VEINS LOWER JARRETT EXTREMITIES W/INFLAMMAT ION 4660 ACUTE 09-30-2009 [facility] 81973 CHRONIC 09-23-2009 BERT SAENZ W IS UNSPECIFIED 7224 DEGENERATIO 08-10-2009 [facility] N OF FAMILY CERVICAL CHIROPRACTI INTERVERTEB C RAL DISC 51110 DEGEN 08-10-2009 [facility] 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 INTERVERTEB RAL DISC 63038 DEGEN 08-10-2009 [facility] LUMBAR/LUMB FAMILY OSACRAL CHIROPRACTI INTERVERTEB C RAL DISC 7395 NONALLOPATH 08-10-2009 [facility] IC LESION FAMILY OF PELVIC CHIROPRACTI REGION NEC C 23609 DIAB W/O 07-28-2009 [facility] TYPE [facility] II/UNS NOT HOSPITAL STATED PROF DARYA UNCNTRL 61069 COR 07-28-2009 [facility] TYPE VESSEL PROF [place] T [address] PERIPHERAL 07-28-2009 [facility] ANGIOPATHY [facility] CLASSIFIED PROF SERV ELSW 68956 OBSTRUCTIVE 07-28-2009 [facility] WITH PROF SERV EXACERBATIO N 07037 OBESITY, 03-21-2009 MONIQUE, UNSPECIFIED INNA W 4011 [...] 00 9- 1- 00 06 TO ve MD 51 20 20 08 WN [place] 80 [...] 20 2- 0- 00 06 TO ve SD 76 20 20 08 WN N 00 [...] 20 7- 2- 00 06 TO ve SD 76 20 20 08 WN N 00 [...] 00 0- 2- 00 06 TO ve MD 51 20 20 08 WN IL 80 [...] 00 3- 4- 00 06 TO ve MD 51 20 20 08 WN IL 80 [...] 20 7- 7- 00 06 TO ve SD 76 20 20 08 WN N 00 [...] 00 3- 7- 00 06 TO ve MD 51 20 20 08 WN IL 80 [...] 00 5- 7- 00 06 TO ve MD 51 20 20 08 WN IL 80 [...] 20 5- 7- 00 06 TO ve SD 76 20 20 08 WN N 00 [...] 07 WN ZA 93 16 17 84 MD 2 83 PH IN AR E MA 10 CY MG OF TA CY BL NT ET HI AN A LI 68 12 01 60 30 00 HO Ac SI 18 -2 -2 .0 00 ME ti NO 00 9- 0- 00 06 TO ve MD 51 20 20 07 WN IL 80 [...] 12 01 30 30 00 HO Ac MD 00 -2 -2 .0 00 ME ti [...] 20 9- 0- 00 06 TO ve SD 76 20 20 07 WN N 00 [...] 34 4- 0- 00 24 LD ve MD 59 20 20 AI ED 31 10 [...] 34 4- 4- 00 24 LD ve MD 59 20 20 AI ED 31 10 [...] 82 1- 0- 00 33 LD ve MD 07 20 20 AI IL 40 09 [...] DOS Code Location Performer Comment DRUG TEST 63549 [facility] QUAL DIR INC INC OPTICAL OBS PER DAY DRUG TEST 43002 [facility] QUAL DIR INC INC OPTICAL OBS PER DAY DRUG TEST 01822 [facility] QUAL DIR INC INC OPTICAL OBS PER DAY COMPREHEN 44716 [facility] SIVE 7 [facility] METABOLIC E E PANEL [facility] CREATINE 36111 [place] KINASE 7 [facility] T[place] [address] [facility] LACTATE 7 [facility]ALTHCAR HEALTHCAR E E HOS[facility] NATRIURET 90694 [facility] IC 7 [facility] PEPTIDE E E HOSPITALS [facility] DUP-SCAN 97593 [place] HRASHAL XTR VEINS 7 MEDICAL COMPLETE SERV FOUNDATIO BILATERAL N STUDY BLOOD 06531 [facility] COUNT 7 [facility] COMPLETE E E AUTOMATED HOSPITALS HOSPITALS DRUG TEST 95639 [facility] QUAL DIR INC INC OPTICAL OBS PER DAY DRUG TEST 40504 [facility] QUAL DIR INC INC OPTICAL OBS PER DAY DRUG TEST 34440 [facility] QUAL DIR INC INC OPTICAL OBS PER DAY DRUG TST G0477 [facility] PRESUMP;C [facility] PBL BEING INC INC READ DC OPT OBV ONLY DRUG TST G0477 [facility] PRESUMP;C 6 [facility] PBL BEING INC INC READ DC OPT OBV ONLY BLOOD 24688 [facility] COUNT [facility] COMPLETE INC INC AUTO&AUTO DIFRNTL WBC PPSV23 61915 [facility] PHYLLIS VACCINE 2 6 PHYSICIAN BETO YRS OR S GROUP OLDER FOR SUBQ/IM USE COMPREHEN 05956 [facility] SIVE [facility] METABOLIC INC INC PANEL IM ADM 48994 [facility] PRQ ID 6 PHYSICIAN BETO SUBQ/IM S GROUP NJXS 1 VACCINE HEMOGLOBI 00892 [facility] N 6 [facility] MEM [...] METH P DAY 8-14 DRUG CL REMOVAL 01503 [facility] JULIA IMPLANT 6 MAHIN MI DEEP RADEX 19349 [facility] FOOT [facility] COMPLETE INC INC MINIMUM 3 VIEWS RADIOLOGI 83845 [place] CONDE ALL C 6 MEDICAL EXAMINATI IMAGING ON FOOT 2 ASS VIEWS APPLICATI 71582 [facility] J[facility] ON RIGID 6 MAHIN MI TOTAL CONTACT LEG CAST ANES OPEN 02747 [facility] PROC 6 ANESTH NEL BONES OF THE LOWER BLUE LEG/ANKLE /FOOT NOS BLOOD 90173 [facility] COMPLETE INC INC AUTO&AUTO DIFRNTL WBC ADD LOW L2840 [facility]ULIA EXTREM 6 MAHIN MI ORTHOTIC TIB LENGTH SOCK FX/= EA WALKING L4360 HONEY STOCKTONANT BOOT 6 MAHIN MI PNEUMATC &/ VACUUM PREFAB CUSTM FIT RADIOLOGI 26106 [facility] CONDE ALL C 6 MEDICAL EXAMINATI IMAGING ON FOOT 2 ASS VIEWS RADIOLOGI 32531 [facility] CONDE ALL C 6 MEDICAL EXAMINATI IMAGING ON CHEST ASS SINGLE VIEW FRONTAL RADIOLOGI 06066 [facility] CONDE ALL C 6 MEDICAL EXAMINATI IMAGING ON KNEE ASS 1/2 VIEWS DRUG TST G0477 [facility] PRESUMP;C 6 [facility] PBL BEING INC INC READ DC OPT OBV ONLY DRUG 92362 [facility] SCREENING 6 [facility] OPIOIDS INC INC & OPIATE ANALOGS 5/MORE ARTHROCEN 85894 [facility] TESIS [facility] ASPIR&/IN INC INC J MAJOR JT/BURSA W/O US INJECTION J1030 [facility] METHYLPRE INC INC DNISOLONE ACETATE [address] [place] [address] [facility] PROSTATE 6 [facility] SPECIFIC INC INC ANTIGEN FREE HEMOGLOBI 22329 [facility] N 6 [facility] GLYCOSYLA INC INC LATA A1C COMPREHEN 76974 [facility] SIVE 6 [facility] METABOLIC INC INC PANEL BLOOD 16587 [facility] COUNT 6 [facility] COMPLETE INC INC AUTO&AUTO DIFRNTL WBC PROSTATE G0103 [facility] CANCER 6 [facility] SCREENING INC INC ; PSA TEST MRI 97960 [facility] SPINAL 6 [facility] CANAL INC INC LUMBAR W/O CONTRAST MATERIAL DRUG TST G0477 [facility] PRESUMP;C 6 [facility] PBL BEING INC INC READ DC OPT OBV ONLY DRUG TST G0477 [facility] PRESUMP;C 6 [facility] PBL BEING INC INC READ DC OPT OBV ONLY ALBUMIN 06081 [facility] URINE 6 [facility] MICROALBU INC INC MIN QUANTIATI VE HEMOGLOBI 40990 [facility] N 6 [facility] GLYCOSYLA INC INC LATA A1C BASIC 16338 [facility] METABOLIC 6 [facility] PANEL INC INC CALCIUM TOTAL DRUG 51011 [facility] SCREEN 6 [facility] LIST A INC INC SINGLE DRUG CLASS METHOD NON-INVAS 59828 GEETHA GARAYCHER, RAYMOND 0 MEDICAL STERLING PHYSIOLOG IMAGING IC STUDY ASSOCIATE EXTREMITY S 3 LEVLS GINGIVOPL 01426 LETTY SAENZ ASTY EACH 0 , NAMRATA OTT QUADRANT W W SPECIFY ORTHOPANT 55902 LETTY SAENZ OGRAM 0 , NAMRATA OTT APPL 78096 SUYAPA LACY, SHA 9 FAMILY KURT R 1/> AREAS CHIROPRAC ELEC TIC STIMJ UNATTENDE D THERAPEUT [address]20 [place] P[place] 1/> 9 FAMILY KURT R AREAS CHIROPRAC EACH 15 TIC MIN EXERCISES CHIROPRAC 60038 SHIRIN RODRIGUES 9 FAMILY KURT R MANIPULAT CHIROPRAC [place] TIC SPINAL 3-4 REGIONS CHIROPRAC 81226 SHIRIN RODRIGUES 9 FAMILY KURT R MANIPULAT CHIROPRAC [place] TX TIC SPINAL 3-4 REGIONS SELF-CARE 67298 SUYAPA LACY, /HOME 9 FAMILY KURT R MGMT CHIROPRAC TRAINING TIC EACH 15 MINUTES THERAPEUT 77620 [place] PX 1/> 9 FAMILY KURT R AREAS CHIROPRAC EACH 15 TIC MIN EXERCISES APPL 38309 SHA RODRIGUES 9 FAMILY KURT R 1/> AREAS CHIROPRAC ELEC TIC STIMJ UNATTENDE D APPL 82968 SAH RODRIGUES 9 FAMILY KURT R 1/> AREAS CHIROPRAC ELEC TIC STIMJ EA 15 MIN APPL 97492 SHA RODRIGUES 9 FAMILY KURT R 1/> AREAS CHIROPRAC TRACTION TIC MECHANICA L APPL 84140 SHA RODRIGUES 9 FAMILY KURT R 1/> AREAS CHIROPRAC ELEC TIC STIMJ UNATTENDE D APPL 75091 SUYAPA LACY, MODALITY 9 FAMILY KURT R 1/> AREAS CHIROPRAC TRACTION TIC MECHANICA L THERAPEUT 68724 [place] LACY IC PX 1/> 9 FAMILY KURT R AREAS CHIROPRAC EACH 15 TIC MIN EXERCISES CHIROPRAC 87299 SUYAPA LACY TIC 9 FAMILY KURT R MANIPLTV CHIROPRAC TX TIC EXTRASPIN AL 1/> REGION SELF-CARE 68319 SUYAPA LACY, /HOME 9 FAMILY KURT R MGMT CHIROPRAC TRAINING TIC EACH 15 MINUTES RADEX 37459 SUYAPA LACY SPINE 9 FAMILY KURT R CERVICAL CHIROPRAC 2 OR 3 TIC VIEWS CHIROPRAC 49967 SUYAPA LACY [facility] 9 FAMILY KURT R MANIPULAT CHIROPRAC [place] TIC SPINAL 3-4 REGIONS RADEX 44738 SUYAPA LACY SPINE 9 FAMILY KURT R LUMBOSACR CHIROPRAC AL 2/3 [place] [address] [facility] THYROID 9 [facility] STIMULATI INC INC NG HORMONE TSH SEDIMENTA 26083 [facility] TION RATE 9 [facility] RBC INC INC NON-AUTOM ATED THYROID 84848 [facility] HORM 9 [facility] UPTK/THYR INC [place] [address] [facility] THYROXINE 9 [facility] TOTAL INC INC BILIRUBIN 43647 [facility] DIRECT 9 [facility] INC INC COMPREHEN 25365 [facility] SIVE 9 [facility] METABOLIC INC INC PANEL LIPID 67145 [facility] PANEL 9 [facility] INC INC HEMOGLOBI 53692 [facility] N 9 [facility] GLYCOSYLA INC INC LATA A1C RADIOLOGI 75479 [facility] C EXAM 9 [facility] CHEST 2 INC INC VIEWS FRONTAL&L ATERAL PROSTATE G0103 [facility] CANCER 9 [facility] SCREENING INC INC ; PSA TEST ECG 26295 [facility] GINNA, ROUTINE 9 [facility] ECG [facility] W/LEAST PROF SERV 12 LDS I&R ONLY ECG 24671 [facility] ROUTINE 9 [facility] ECG INC INC W/LEAST 12 LDS TRCG ONLY W/O I&R BLOOD 81409 [facility] COUNT 9 [facility] COMPLETE INC INC AUTO&AUTO DIFRNTL WBC Encounters Encounter Start End Date Code Location Performer Type Date [facility]EN [facility] 7 7 [facility] 7 7 [facility] OUTPATIEN INC T OFFICE 79071 [facility] PHYLLIS OUTPATIEN 7 7 PHYSICIAN T VISIT S GROUP 15 MINUTES EMERGENCY 27989 [facility] ASCENCIOKERLINE 7 7 MEDICAL JR DEPARTMEN SERV T VISIT FOUNDATIO HIGH/URGE N NT SEVERITY [facility] OFFICE 11076 [facility] PHYLLIS OUTPATIEN 7 7 PHYSICIAN T VISIT S GROUP 15 MINUTES [facility] 7 7 [facility] OUTPATIEN INC T OFFICE 98161 [facility] PHYLLIS OUTPATIEN 7 7 PHYSICIAN T VISIT S GROUP 25 MINUTES [facility] - 7 7 [facility] OUTPATIEN INC T OFFICE 47345 [facility] PHYLLIS OUTPATIEN 7 7 PHYSICIAN T VISIT S GROUP 15 MINUTES [facility] OUTPATIEN INC T OFFICE 86383 [facility] PHYLLIS OUTPATIEN 6 6 PHYSICIAN T VISIT S GROUP 25 MINUTES OFFICE 92129 [facility] PHYLLIS OUTPATIEN 6 6 PHYSICIAN BETO T VISIT S GROUP 25 MINUTES [facility] T [facility] OUT[facility] INC T OFFICE 61221 [facility] PHYLLIS OUTPATIEN 6 6 PHYSICIAN BETO T VISIT S GROUP 25 MINUTES OFFICE 35054 [facility] PHYLLIS OUTPATIEN 6 6 PHYSICIAN BETO T VISIT S GROUP 15 MINUTES OFFICE 48068 [facility] OUTPATIEN 6 6 MAHIN MI T VISIT 15 MINUTES OFFICE 23659 [facility] T VISIT INC 10 MINUTES [facility] 6 6 [facility] T [facility] 6 6 [facility] OUTPATIEN INC T OFFICE 57360 [facility] OUTPATIEN 6 6 MAHIN MI T VISIT 15 MINUTES [facility] 6 6 [facility] OUTPATIEN INC T OFFICE 56679 [facility] PHYLLIS OUTPATIEN 6 6 PHYSICIAN BETO T VISIT S GROUP 10 MINUTES OFFICE 52151 [facility] OUTPATIEN 6 6 MAHIN MI T NEW 30 MINUTES [facility] 6 6 [facility] OUTPATIEN INC T OFFICE 74225 [facility] 6 6 [facility] T VISIT INC 10 MINUTES [facility] 6 6 [facility]PATIEN [facility] T [facility] 6 6 [facility] 6 6 [facility] T [facility] 6 6 [facility] OUTPATIEN INC T OFFICE 33989 [facility] 6 6 [facility] T VISIT INC 10 MINUTES OFFICE 75123 [facility] OUT[facility] 6 6 PHYSICIAN BETO T VISIT S GROUP 10 MINUTES [facility] 6 6 [facility] OUTPATIEN INC T OFFICE 69962 [facility] OUT[facility] 6 6 PHYSICIAN BETO T VISIT S GROUP 15 MINUTES OFFICE 17925 KASH HEWITT OUTPATIEN 0 0 [facility] T VISIT 15 MINUTES [facility] - 0 0 [facility] OUTPATIEN INC T OFFICE 28367 KASH HEWITT, CONSULTAT 9 9 [facility]OS GONZALEZ [facility] PATIENT 60 MIN OFFICE 47874 NEDA RODRIGUES 9 9 [facility] 20 CHIROPRAC MINUTES [facility] - 9 9 [facility] OUTPATIEN [facility] T OFFICE 08384 MONIQUE AMAYA OUTPATIEN 9 9 INNA Zaidi T VISIT 15 MINUTES OFFICE 68582 MONIQUE AMAYA OUTPATIEN 9 9 INNA Zaidi T NEW 60 MINUTES
--- OUTSIDE RECORDS SUMMARY | 2017-04-20 07:11 | External Medical Summary Rpt ---
Author Author [facility] [employer], [facility] Organization [employer] Address Unknown Phone Unavailable Results Glucose [Mass/volume] in Capillary blood by Glucometer Observa Value Referen Units Interpr Notes Date ti ce etation Range Glucose 70 - 110 mg/dl High No Apr 9 [Mass/vol informati 2017 6:29 ume] in on in AM Capillary source blood by data Glucomete r Creatine kinase [Enzymatic activity/volume] in Serum or Plasma Observa Value Referen Units Interpr Notes Date ti etation Range Creatine 39 - 308 U/L High No Apr 9 kinase informati 2017 5:30 [Enzymati on in AM c source activity/ data volume] in Serum or Plasma Creatine kinase [Enzymatic activity/volume] in Serum or Plasma Observa Value Referen Units Interpr Notes Date ti ce etation Range Creatine 39 - 308 U/L High No Apr 18 kinase informati 2017 9:15 [Enzymati on in PM c source activity/ data volume] in Serum or Plasma Glucose [Mass/volume] in Capillary blood by Glucometer Observa Value Referen Units Interpr Notes Date ti etation Range Glucose 70 - 110 mg/dl High No Apr 8 [Mass/vol informati 2017 8:17 ume] in on in PM Capillary source blood by data Glucomete r Glucose [Mass/volume] in Capillary blood by Glucometer Observa Value Referen Units Interpr Notes Date ti etation Range Glucose 70 - 110 mg/dl High No Apr 8 [Mass/vol informati 2017 4:53 ume] in on in PM Capillary source blood by data Glucomete r Creatine kinase [Enzymatic activity/volume] in Serum or Plasma Observa Value Referen Units Interpr Notes Date ti etation Range Creatine 39 - 308 U/L High No Apr 8 kinase informati 2017 1:15 [Enzymati on in PM c source activity/ data volume] in Serum or Plasma Drugs identified in Urine by Screen method Observa Value Referen Units Interpr Notes Date ti ce etation Range Positive urine drug screen samples are stored for 7 days. Contact the Lab if confirmation of positives is needed. Ampheta NEGATIV <1000 ng/mL No No Apr 18 mine E informa informa 2017 [Presen tion in tion in 9:25 AM ce] in source source Urine data data by Screen method Barbitura <200 ng/mL No No Apr 18 rubio informati informati 2016 9:25 [Mass/vol on in on in AM ume] in source source Urine by data data Screen method Benzodiaz 200 ng/mL ng/mL High This is Apr 18 epines an 2016 9:25 [Mass/vol UNCONFIRM AM ume] in ED Serum or result. Plasma by This Screen result is method for medicalpu rposes and/or treatment only. Cocaine <300 ng/g High This is Apr 18 [Mass/vol an 2016 9:25 ume] in UNCONFIRM AM Unspecifi ED ed result. specimen This result is for medicalpu rposes and/or treatment only. Methadone <300 ng/mL No No Apr 18 informati 2016 9:25 [Mass/vol on in on in AM ume] in source source Unspecifi data data ed specimen Opiates <300 ng/mL High This is Apr 18 [Mass/vol an 2016 9:25 ume] in UNCONFIRM AM Unspecifi ED ed result. specimen This result is for medicalpu rposes and/or treatment only. Phencycli <25 ng/mL No No Apr 18 dine informati informati 2016 9:25 [Mass/vol on in on in AM ume] in source source Unspecifi data data ed specimen 11-Hydr NEGATIV <50 ng/mL No No Apr 18 oxy E informa informa 2017 delta-9 tion in tion in 9:25 AM source source tetrahy data data drocann abinol [Presen ce] in Unspeci fied specime n CBC W Auto Differential panel in Blood Observa Value Referen Units Interpr Notes Date tion ce etation Range Basophils 0 - 0.2 K/MM3 Normal No Apr 182016 9:25 [#/volume on in AM ] in source Blood by data Automated count Basophils 0.1 - 2.0 % Normal No Apr 18 / informati 2016 9:25 leukocyte on in AM s in source Blood by data Automated count Eosinophi 0.0 - 0.4 K/mm3 Normal No Apr 18 ls informati 2016 9:25 [#/volume on in AM ] in source Blood by data Automated count Eosinophi 0.1 - % Normal No Apr 18 ls/100 12.0 informati 2017 9:25 leukocyte on in AM s in source Blood by data Automated count Granulocy 1.3 - 8.0 K/mm3 Normal No Apr 18 rubio informati 2016 9:25 [#/volume on in AM ] in source Blood by data Automated count Granulocy 37.0 - % Normal No Apr 18 rubio/100 80.0 informati 2017 9:25 leukocyte on in AM s in source Blood by data Automated count Hematocri 42.0 - % Low No Apr 18 t [Volume 52.0 informati 2017 9:25 on in AM Fraction] source of Blood data Hemoglobi 14.1 - g/dL Low No Apr 18 n 18.0 informati 2016 9:25 [Mass/vol on in AM ume] in source Blood data Lymphocyt 0.7 - 4.5 K/mm3 Normal No Apr 18 es informati 2017 9:25 [#/volume on in AM ] in source Unspecifi data ed specimen by Automated count Lymphocyt 10 - 50 % Normal No Apr 18 es informati 2016 9:25 [#/volume on in AM ] in source Unspecifi data ed specimen by Automated count Erythrocy 27 - 31.2 pg High No Apr 18 te mean informati 2016 9:25 corpuscul on in AM ar source hemoglobi data n [Entitic mass] Erythrocy 31.8 - g/dl Normal No Apr 18 te mean 35.4 informati 2016 9:25 corpuscul on in AM ar source hemoglobi data n concentra tion [Mass/vol ume] by Automated count Erythrocy 82.2 - fl Normal No Apr 18 te mean 97.8 informati 2016 9:25 corpuscul on in AM ar volume source [Entitic data volume] by Automated count Monocytes 0.1 - 1.0 K/mm3 Normal No Apr 18 informati 2016 9:25 [#/volume on in AM ] in source Blood by data Automated count Monocytes 1.7 - 9.3 % High No Apr 18 /100 informati 2017 9:25 leukocyte on in AM s in source Blood by data Automated count Platelet 7.4 - fl Normal No Apr 18 mean 10.4 2016 9:25 volume on in AM [Entitic source volume] data in Blood by Automated count Platelets 142 - 424 K/mm3 Normal No Apr 18 inform2016 9:25 [#/volume on in AM ] in source Blood data Erythrocy 4.6 - 6.2 M/mm3 Low No Apr 18 rubio informati 2016 9:25 [#/volume on in AM ] in source Amniotic data fluid Erythrocy 11.5 - % Normal No Apr 18 te 17.5 informati 2016 9:25 distribut on in AM ion width source [Entitic data volume] by Automated count Leukocyte 4.8 - K/MM3 Normal No Apr 18 s 10.8 informati 2016 9:25 [#/volume on in AM ] in source Blood data Drugs identified in Urine by Screen method Observa Value Referen Units Interpr Notes Date tion ce etation Range Positive urine drug screen samples are stored for 7 days. Contact the Lab if confirmation of positives is needed. Ampheta NEGATIV <1000 ng/mL No No Feb 17 mine E informa informa 2017 [Presen tion in tion in 4:15 PM ce] in source source Urine data data by Screen method Barbitura <200 ng/mL No No Feb 17 rubio informati informati 2016 4:15 [Mass/vol on in on in PM ume] in source source Urine by data data Screen method Benzodiaz 200 ng/mL ng/mL No No Feb 17 epines informati informati 2016 4:15 [Mass/vol on in on in PM ume] in source source Serum or data data Plasma by Screen method Cocaine <300 ng/g No No Feb 17 [Mass/vol informati informati 2017 4:15 ume] in on in on in PM Unspecifi source source ed data data specimen Methadone <300 ng/mL No No Feb 17 informati informati 2017 4:15 [Mass/vol on in on in PM ume] in source source Unspecifi data data ed specimen Opiates <300 ng/mL High This is Feb 17 [Mass/vol an 2016 4:15 ume] in UNCONFIRM PM Unspecifi ED ed result. specimen This result is for medicalpu rposes and/or treatment only. Phencycli <25 ng/mL No No Feb 17 dine informati informati 2017 4:15 [Mass/vol on in on in PM ume] in source source Unspecifi data data ed specimen 11-Hydr NEGATIV <50 ng/mL No No César 9 oxy E informa informa 2017 delta-9 tion in tion in 4:15 PM source source tetrahy data data drocann abinol [Presen ce] in Unspeci fied specime n MISCELLANEOUS TEST Observa Value Referen Units Interpr Notes Date tion ce etation Range 01/31/17 COCAINE (GC/MS), URINE COCAINE METABOLITE POSITIVE BENZOYLECGONINE (GC/MS) 1000 ng/mL [id number] PLEASE NOTE: DRUG-TEST RESULTS SHOULD BE INTERPRETED IN THE CONTEXT OF CLINICAL INFORMATION. PATIENT METABOLIC VARIABLES, SPECIFIC DRUG CHEMISTRY, ADN SPECIMEN CHARACTERISTICS CAN AFFECT TEST OUTCOME. TECHNICAL CONSULTATION IS AVAILABLE IF A TEST RESULT IS INCONSISTENT WITH AN EXPECTED OUTCOME (EMAIL - [email or web address] CALL TOLL-H[employer] [phone]) PERFORMING SITE: [facility] ARINA FLEMING [address] [place] [address] DIR: KENIA MCDONOUGH MD 01/31/17 COCAINE (GC/MS), URINE COCAINE METABOLITE POSITIVE BENZOYLECGONINE (GC/MS) 1000 ng/mL [id number] PLEASE NOTE: DRUG-TEST RESULTS SHOULD BE INTERPRETED IN THE CONTEXT OF CLINICAL INFORMATION. PATIENT METABOLIC VARIABLES, SPECIFIC DRUG CHEMISTRY, ADN SPECIMEN CHARACTERISTICS CAN AFFECT TEST OUTCOME. TECHNICAL CONSULTATION IS AVAILABLE IF A TEST RESULT IS INCONSISTENT WITH AN EXPECTED OUTCOME (EMAIL - [email or web address] OR CALL TOLL-FREE [phone]) [facility] [address] [place] [place] [address] DIR: KENIA MCDONOUGH MD
--- OUTSIDE RECORDS SUMMARY | 2017-04-20 07:11 | External Medical Summary Rpt ---
[...] COCAINE METABOLITE POSITIVE BENZOYLECGONINE (GC/MS) 1000 ng/mL [id number] PLEASE NOTE: DRUG-TEST RESULTS SHOULD BE INTERPRETED IN THE CONTEXT OF CLINICAL INFORMATION. PATIENT METABOLIC VARIABLES, SPECIFIC DRUG CHEMISTRY, ADN SPECIMEN CHARACTERISTICS CAN AFFECT TEST OUTCOME. TECHNICAL CONSULTATION IS AVAILABLE IF A TEST RESULT IS INCONSISTENT WITH AN EXPECTED OUTCOME (EMAIL - [email or web address] OR CALL TOLL-[employer] DA [phone]) PERFORMING SITE: [facility] ARINA FLEMING [address] [place] [address] DIR: KENIA MCDONOUGH MD 01/31/17 COCAINE (GC/MS), URINE COCAINE METABOLITE POSITIVE BENZOYLECGONINE (GC/MS) 1000 ng/mL [id number] PLEASE NOTE: DRUG-TEST RESULTS SHOULD BE INTERPRETED IN THE CONTEXT OF CLINICAL INFORMATION. PATIENT METABOLIC VARIABLES, SPECIFIC DRUG CHEMISTRY, ADN SPECIMEN CHARACTERISTICS CAN AFFECT TEST OUTCOME. TECHNICAL CONSULTATION IS AVAILABLE IF A TEST RESULT IS INCONSISTENT WITH AN EXPECTED OUTCOME (EMAIL - [email or web address] OR CALL TOLL-FREE [phone]) [facility] [address] [place] [address] DIR: KENIA MCDONOUGH MD
--- OUTSIDE RECORDS SUMMARY | 2017-04-20 07:11 | External Medical Summary Rpt ---
Author Author , ERICK MURPHY Address Unknown Phone [email or web address] Immunization Name Date Rout CVX Reac Dose Comm Prov Is Faci e tion ent ider Refu lity Give sed n Td 08- 9 999 Hist H149 No H149 (hayder 1-20 oric lt), 00 al Info adso rmat rbed ion - Sour ce Unsp ecif ied
--- OUTSIDE RECORDS SUMMARY | 2017-04-20 07:11 | External Medical Summary Rpt ---
Author Author , ERICK MURPHY Address Unknown Phone [email or web address] Immunization Name Date Rout CVX Reac Dose Comm Prov Is Faci e tion ent ider Refu lity Give sed n Td 08- 9 999 Hist H149 No H149 (hayder 1-20 oric lt), 00 al Info adso rmat rbed ion - Sour ce Unsp ecif ied
--- OUTSIDE RECORDS SUMMARY | 2017-04-20 07:25 | External Medical Summary Rpt ---
Author Author , JEFFREY MURPHY Address Unknown Phone [email or web address] Care Team Providers Care Heading Saw Operator Name Role Phone INNA AMAYA, Unavailable Unavailable INNA AMAYA STEPHEN A, Unavailable Unavailable JIMBO CHACKO HARSHAL, HARSHAL Unavailable Unavailable CONDE ALL, CONDE ALL Unavailable Unavailable JULIA MI, JULIA Unavailable Unavailable MI HEWITT JARRETT, Unavailable Unavailable HEWITT JARRETT HEWITT JARRETT, Unavailable Unavailable HEWITTCARLOS BAEZ, Unavailable Unavailable [facility] Unavailable Unavailable [facility], [facility] STERLING LÓPEZ, Unavailable Unavailable STERLING LÓPEZ ECKERLINE JR, Unavailable Unavailable ECKERLINE JR FALLIS MAHIN, FALLIS Unavailable Unavailable MAHIN PHYLLIS PHYLLIS Unavailable Unavailable PHYLLIS BETO, PHYLLIS Unavailable Unavailable BETO KURT LACY, Unavailable Unavailable KURT LACY [facility] Unavailable Unavailable INC, [facility] NAMRATA SAENZ, Unavailable Unavailable NAMRATA SAENZ [facility], Unavailable Unavailable [facility] Unavailable Unavailable IMAG[facility], [facility] Leanna Blair MD, Unavailable Unavailable Leanna Blair MD [facility] RENATA SWEENEY, Unavailable Unavailable RENATA SWEENEY [id number], Unavailable Unavailable [id number] Unavailable Unavailable [id number] [address] [id number], [facility] [id number] [address] [id number] CARINE NEUMANN, CARINE Unavailable Unavailable [facility] Unavailable Unavailable HOSPITALS, [facility] Unavailable Unavailable #591, [id number] Purpose Continuity of Care Document - 03-21-2009 through 2016 Problems Code Diagnosis DOS Provider Status [id number] OTHER LONG 02-17-2017 [facility] CURRENT INC DRUG THERAPY G8929 OTHER 12-23-2016 [facility] CHRONIC PHYSICIANS PAIN GROUP E11.9 Type 2 12-18-2016 diabetes mellitus without complicatio ns I10 Essential 12-18-2016 (primary) hypertensio n R22.43 Localized 12-18-2016 swelling, mass and lump, lower limb, bilateral R60.0 Localized 12-18-2016 edema Z72.0 Tobacco use 12-18-2016 E119 TYPE 2 12-12-2016 [facility] WITHOUT COMPLICATIO NS I10 ESSENTIAL 12-12-2016 [facility] N R2243 LOC 12-12-2016 [facility] LOWER LIMB BILATERAL R600 LOCALIZED 12-12-2016 [facility] Z0389 ENCOUNTER 12-12-2016 [place] [facility] SUSPCT [facility] COND RULED OUT Z720 TOBACCO USE 12-12-2016 [facility] B1920 UNS VIRAL 11-25-2016 [facility] HEPATITIS C PHYSICIANS WITHOUT GROUP HEPATIC COMA E663 OVERWEIGHT 11-25-2016 [facility] M5116 INTERVERTEB 11-25-2016 [facility] RAL DISC PHYSICIANS D/O GROUP W/RADICULOP ATHY LUMB RGN M545 LOW BACK 11-25-2016 [facility] PAIN PHYSICIANS GROUP M1990 UNSPECIFIED 09-07-2016 [facility] PHYSICIANS OSTEOARTHRI GROUP TIS UNSPECIFIED SITE Z139 ENCOUNTER 07-29-2016 [facility] FOR PHYSICIANS SCREENING GROUP UNSPECIFIED Z23 ENCOUNTER 07-29-2016 [facility] FOR PHYSICIANS IMMUNIZATIO GROUP N B353 TINEA PEDIS 06-08-2016 [facility] M9983 OTHER 06-08-2016 [facility] BIOMECHANIC PHYSICIANS AL LESIONS GROUP OF LUMBAR REGION M722 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 S96348 PAIN IN 04-07-2016 FALLIS MAHIN RIGHT FOOT O24174 PAIN IN 04-07-2016 FALLIS MAHIN LEFT FOOT G8918 OTHER ACUTE 03-31-2016 FALLIS MAHIN POSTPROCEDU RAL PAIN I890 LYMPHEDEMA 03-31-2016 FALLIS MAHIN NOT ELSEWHERE CLASSIFIED I62381S DISPLACED 03-31-2016 FALLIS MAHIN FX 3RD METATARSAL LT FT SUBSQT FX RTN E80148M DSPL FX 03-31-2016 FALLIS MAHIN PROX PHALANX LT GREAT TOE SBSQT FX RTN Z4789 ENCOUNTER 03-17-2016 [facility] AFTERCARE U52421S UNS 02-29-2016 COMMUNITY FRACTURE LT ANESTH OF TOES THE BLUE INITIAL ENC CLOS FRACTURE E1142 TYPE 2 02-25-2016 FALLIS MAHIN DIABETES MELLITUS W/DIAB POLYNEUROPA THY M2570 OSTEOPHYTE 02-25-2016 FALLIS MAHIN UNSPECIFIED JOINT F58788A DISPLACED 02-25-2016 FALLIS MAHIN FX 3RD METATARSAL LT FT INIT CLOS FX [id number] DSPL FX 02-25-2016 FALLIS MAHIN PROX PHALANX LT GREAT TOE INIT CLOS FX H58249X UNS 02-24-2016 [facility] FRACTURE LT PHYSICIANS FOOT GROUP INITIAL ENC CLOS FRACTURE T148 OTHER 02-24-2016 [facility] INJURY OF PHYSICIANS UNSPECIFIED GROUP BODY REGION F60220 PAIN IN 02-21-2016 [facility]EE [facility] R079 CHEST PAIN 02-21-2016 [facility] UNSPECIFIED [facility]ICAL IM[facility]ING ASS N133YRZ UNSPECIFIED 02-21-2016 [facility] INJURY OF MEDICAL THORAX IMAGING ASS INITIAL ENCOUNTER K4010SK UNS INJURY 02-21-2016 [facility] [place] LT LOWER MEDICAL LEG INITIAL IMAGING ASS ENCOUNTER U16856X NONDSPL FX 02-21-2016 [facility] 3RD MEDICAL METATARSAL IMAGING ASS LT FT INIT ENC CLOS FX F77688S DSPL FX 02-21-2016 [facility] [place] PROX PHALNX MEDICAL LT LESSER IMAGING ASS TOES INIT YONY FX Z37859 PRIMARY 02-09-2016 [facility] TIS INC UNSPECIFIED SHOULDER M170 BILATERAL 12-15-2015 [facility] OSTEOARTHRI INC TIS OF KNEE M5136 OTH 11-30-2015 [facility] RAL DISC INC DEGEN LUMBAR REGION 607.1 607.1 10-19-2013 [facility] 4439 UNSPECIFIED 10-13-2009 HEWITT PERIPHERAL JARRETT VASCULAR DISEASE 4541 VARICOSE 10-13-2009 HEWITT VEINS LOWER JARRETT EXTREMITIES W/INFLAMMAT ION 4660 ACUTE 09-30-2009 [facility] 83916 CHRONIC 09-23-2009 BERT SAENZ W IS UNSPECIFIED 7217 DEGENERATIO 08-10-2009 [facility] N OF FAMILY CERVICAL CHIROPRACTI INTERVERTEB C RAL DISC 59421 DEGEN 08-10-2009 [facility] 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 INTERVERTEB RAL DISC 43845 DEGEN 08-10-2009 [facility] LUMBAR/LUMB FAMILY OSACRAL CHIROPRACTI INTERVERTEB C RAL DISC 7395 NONALLOPATH 08-10-2009 [facility] IC LESION FAMILY OF PELVIC CHIROPRACTI REGION NEC C 50404 DIAB W/O 07-28-2009 [facility] COMP TYPE [facility] II/UNS NOT HOSPITAL STATED PROF SERV UNCNTRL 96353 COR 07-28-2009 [facility] TYPE VESSEL PROF [place] T [address] PERIPHERAL 07-28-2009 [facility] ANGIOPATHY [facility] CLASSIFIED PROF DARYA ELSW 29815 OBSTRUCTIVE 07-28-[address] [facility] BRONCHITIS [facility] WITH [place]ERBAT[place] N [address] OBESITY, 03-21-2009 MONIQUE, UNSPECIFIED INNA Zaidi 4011 ESSENTIAL 03-21-2009 [facility] HYPERTENSIO INNA Zaidi N, BENIGN 7019 UNSPECIFIED 03-21-2009 INNA AMAYA HYPERTROPHI C&ATROPHIC CONDITION SKIN Allergies, Adverse Reactions, Alerts Type Drug Allergy [...] 00 9- 1- 00 06 TO ve WV 51 20 20 08 WN IL 80 [...] 20 2- 0- 00 06 TO ve OH 76 20 20 08 WN N 00 [...] 20 7- 2- 00 06 TO ve OH 76 20 20 08 WN N 00 [...] 00 0- 2- 00 06 TO ve WV 51 20 20 08 WN IL 80 [...] 00 3- 4- 00 06 TO ve WV 51 20 20 08 WN IL 80 [...] 20 7- 7- 00 06 TO ve OH 76 20 20 08 WN N 00 [...] 00 3- 7- 00 06 TO ve WV 51 20 20 08 WN IL 80 [...] 00 5- 7- 00 06 TO ve WV 51 20 20 08 WN IL 80 [...] 20 5- 7- 00 06 TO ve OH 76 20 20 08 WN N 00 [...] 07 WN ZA 93 16 17 84 WV 2 83 PH IN AR E MA 10 CY MG OF TA CY BL NT ET HI AN A LI 68 12 01 60 30 00 HO Ac SI 18 -2 -2 .0 00 ME ti NO 00 9- 0- 00 06 TO ve WV 51 20 20 07 WN IL 80 [...] 12 01 30 30 00 HO Ac WV 00 -2 -2 .0 00 ME ti [...] 20 9- 0- 00 06 TO ve OH 76 20 20 07 WN N 00 [...] 34 4- 0- 00 24 LD ve WV 59 20 20 AI ED 31 10 [...] 34 4- 4- 00 24 LD ve WV 59 20 20 AI ED 31 10 [...] 82 1- 0- 00 33 LD ve WV 07 20 20 AI IL 40 09 [...] 09:25 ce] in Urine by Screen method 11Hydr NEGATIV <50 complet oxy 017 E ed [...] DOS Code Location Performer Comment DRUG TEST 01175 [facility] QUAL DIR INC INC OPTICAL OBS PER DAY DRUG TEST 83648 [facility] QUAL DIR INC INC OPTICAL OBS PER DAY DRUG TEST 42316 [facility] QUAL DIR INC INC OPTICAL OBS PER DAY COMPREHEN 21134 [facility] SIVE 7 [facility] METABOLIC E [place] [address] [facility] LACTATE 7 [facility]ALTHCAR E E HOSPITALS HOSPITALS NATRIURET 73447 [facility] IC 7 [facility] PEPTIDE E E HOSPITALS HOSPITALS CREATINE 57595 [facility] KINASE 7 [facility] TOTAL E E HOSPITALS HOSPITALS DUP-SCAN 35377 [place] [facility] XTR VEINS 7 MEDICAL COMPLETE SERV FOUNDATIO BILATERAL N STUDY BLOOD 78747 [facility] COUNT 7 [facility] COMPLETE E E AUTOMATED HOSPITALS HOSPITALS DRUG TEST 26240 [facility] QUAL DIR INC INC OPTICAL OBS PER DAY DRUG TEST 93485 [facility] QUAL DIR INC INC OPTICAL OBS PER DAY DRUG TEST 32438 [facility] QUAL DIR INC INC OPTICAL OBS PER DAY DRUG TST G0477 [facility] PRESUMP;C [facility] PBL BEING INC INC READ DC OPT OBV ONLY DRUG TST G0477 [facility] PRESUMP;C 6 [facility] PBL BEING INC INC READ DC OPT OBV ONLY IM ADM 75758 [facility] PHYLLIS PRQ ID 6 PHYSICIAN BETO SUBQ/IM S GROUP NJXS 1 VACCINE COMPREHEN 00211 [facility] S[facility] METABOLIC INC INC PANEL HEMOGLOBI 30919 [facility] N 6 [facility] GLYCOSYLA INC INC LATA A1C PPSV23 15911 [facility] VACCINE 2 6 PHYSICIAN BETO YRS OR S GROUP OLDER FOR SUBQ/IM USE BLOOD 24556 [facility] COUNT 6 [facility] COMPLETE INC INC AUTO&AUTO DIFRNTL WBC DRUG TST G0477 [facility] PRESUMP;C 6 [facility] PBL BEING INC INC READ DC OPT OBV ONLY FOOT L3020 [facility] JULIA INSRT 6 MAHIN MI REMV MOLD PT MDL LNGTUDNL/ MT SUPP EA DRUG TEST G0481 [facility] DEFINITV [address] [facility] [address] [facility] [address] ID INC INC METH P DAY 8-14 DRUG CL DRUG TST G0477 [facility] PRESUMP;C [facility] PBL BEING INC INC READ DC OPT OBV ONLY REMOVAL 09563 [facility]IA IMPLANT 6 MAHIN MI DEEP APPLICATI 32200 [facility] ON RIGID 6 MAHIN MI TOTAL CONTACT LEG CAST RADIOLOGI 85103 [facility] CONDE ALL C 6 MEDICAL EXAMINATI IMAGING ON FOOT 2 ASS VIEWS RADEX 66704 [facility] FOOT 6 [facility] COMPLETE INC INC MINIMUM 3 VIEWS ANES OPEN 20323 [facility] PROC 6 ANESTH NEL BONES OF THE LOWER BLUE LEG/ANKLE /FOOT NOS BLOOD 23782 [facility] COUNT [facility] COMPLETE INC INC AUTO&AUTO DIFRNTL WBC ADD LOW L2840 [facility]ULIA EXTREM 6 MAHIN MI ORTHOTIC TIB LENGTH SOCK FX/= EA WALKING L4360 [facility] BOOT 6 MAHIN MI PNEUMATC &/ VACUUM PREFAB CUSTM FIT RADIOLOGI 68607 [facility] [place] CONDE ALL C 6 MEDICAL EXAMINATI IMAGING ON KNEE ASS 1/2 VIEWS RADIOLOGI 22979 [facility] [place] CONDE ALL C 6 MEDICAL EXAMINATI IMAGING ON CHEST ASS SINGLE VIEW FRONTAL RADIOLOGI 77543 [facility] [place] C 6 MEDICAL EXAMINATI IMAGING ON FOOT 2 ASS VIEWS DRUG 24759 [facility] SCREENING 6 [facility] OPIOIDS INC INC & OPIATE ANALOGS 5/MORE DRUG TST G0477 [facility] PRESUMP;C 6 [facility] PBL BEING INC INC READ DC OPT OBV ONLY ARTHROCEN 62057 [facility] TESIS [facility] ASPIR&/IN INC INC J MAJOR JT/BURSA W/O US INJECTION J1030 [facility] METHYLPRE INC INC DNISOLONE ACETATE 40 MG PROSTATE G0103 [facility] CANCER 6 [facility] SCREENING INC INC ; PSA TEST BLOOD 16685 [facility] COUNT 6 [facility] COMPLETE INC INC AUTO&AUTO DIFRNTL WBC COMPREHEN 73907 [facility] SIVE 6 [facility] METABOLIC INC INC PANEL HEMOGLOBI 06238 [facility] N 6 [facility] GLYCOS[place] [address] [facility] PROSTATE 6 [facility] SPECIFIC INC INC ANTIGEN FREE MRI 99541 [facility] SPINAL 6 [facility] CANAL INC INC LUMBAR W/O CONTRAST MATERIAL DRUG TST G0477 [facility] PRESUMP;C 6 [facility] PBL BEING INC INC READ DC OPT OBV ONLY DRUG TST G0477 [facility] PRESUMP;C 6 [facility] PBL BEING INC INC READ DC OPT OBV ONLY ALBUMIN 06916 [facility] URINE 6 [facility] MICROALBU INC INC MIN QUANTIATI VE HEMOGLOBI 19305 [facility] N 6 [facility] GLYCOSYLA INC INC LATA A1C BASIC 89498 [facility] METABOLIC 6 [facility] PANEL INC INC CALCIUM TOTAL DRUG 45812 [facility] SCREEN [facility] LIST A INC INC SINGLE DRUG CLASS METHOD NON-INVAS 32325 RAYMOND DAVIS 0 MEDICAL [facility] PHYSIOLOG IMAGING IC STUDY ASSOCIATE EXTREMITY S 3 LEVLS GINGIVOPL 44264 LETTY SAENZ ASTY EACH 0 , NAMRATA OTT W SPECIFY ORTHOPANT 83987 LETTY SAENZ OGRAM 0 , NAMRATA OTT APPL 15424 SUYAPA LACY, SHA 9 FAMILY KURT R 1/> AREAS CHIROPRAC ELEC TIC STIMJ UNATTENDE D CHIROPRAC 21380 SHIRIN RODRIGUES 9 FAMILY KURT R MANIPULAT CHIROPRAC [place] TIC SPINAL 3-4 REGIONS THERAPEUT [address] [place] 1/> 9 FAMILY KURT R AREAS CHIROPRAC EACH 15 TIC MIN EXERCISES THERAPEUT 42397 [place] 1/> 9 FAMILY KURT R AREAS CHIROPRAC EACH 15 TIC MIN EXERCISES SELF-CARE 56536 SUYAPA LACY, /HOME 9 FAMILY KURT R MGMT CHIROPRAC TRAINING TIC EACH 15 MINUTES CHIROPRAC 19118 SHIRIN RODRIGUES 9 FAMILY KURT R MANIPULAT CHIROPRAC [place] TIC SPINAL 3-4 REGIONS APPL 03522 SHA RODRIGUES 9 FAMILY KURT R 1/> AREAS CHIROPRAC ELEC TIC STIMJ UNATTENDE D APPL 54580 [place] LACY, MODALITY 9 FAMILY KURT R 1/> AREAS CHIROPRAC TRACTION TIC MECHANICA L APPL 11293 SUYAPA LACY, MODALITY 9 FAMILY KURT R 1/> AREAS CHIROPRAC ELEC TIC STIMJ EA 15 MIN APPL 23563 SUYAPA LACY, MODALITY 9 FAMILY KURT R 1/> AREAS CHIROPRAC ELEC TIC STIMJ UNATTENDE D CHIROPRAC 75016 SUYAPA LACY, TIC 9 FAMILY KURT R MANIPULAT CHIROPRAC [place] TIC SPINAL 3-4 REGIONS APPL 08710 SUYAPA LACY, MODALITY 9 FAMILY KURT R 1/> AREAS CHIROPRAC TRACTION TIC MECHANICA L RADEX 95433 SUY[place]A LACY, SPINE 9 FAMILY KURT R CERVICAL CHIROPRAC 2 OR 3 TIC VIEWS THERAPEUT 88535 SUYAPA LACY, IC PX 1/> 9 FAMILY KURT R AREAS CHIROPRAC EACH 15 TIC MIN EXERCISES CHIROPRAC 01784 SUYAPA LACY, TIC 9 FAMILY KURT R MANIPLTV CHIROPRAC TX TIC EXTRASPIN AL 1/> REGION SELF-CARE 58260 SUYAPA LACY, /HOME 9 FAMILY KURT R MGMT CHIROPRAC TRAINING TIC EACH 15 MINUTES RADEX 27883 SUYAPA LACY, SPINE 9 FAMILY KURT R LUMBOSACR CHIROPRAC AL 2/3 TIC VIEWS PROSTATE G0103 [facility] SCREENING INC INC ; PSA TEST BILIRUBIN 06057 [facility] DIRECT 9 [place] [address] [facility] THYROXINE 9 [facility] TOTAL INC INC ECG 06123 [facility] CHACKO, ROUTINE 9 [facility] W/LEAST PROF SERV 12 LDS I&R ONLY THYROID 59476 [facility] HORM 9 [facility] UPTK/THYR INC INC OID HORMONE BINDING RATIO BLOOD 38709 [facility] COUNT 9 [facility] COMPLETE INC INC AUTO&AUTO DIFRNTL WBC LIPID 53788 [facility] PANEL 9 [facility] INC INC HEMOGLOBI 57004 [facility] N 9 [facility] GLYCOSYLA INC INC LATA A1C COMPREHEN 90054 [facility] SIVE 9 [facility] METABOLIC INC INC PANEL RADIOLOGI 79134 [facility] C EXAM [address] [facility] CHEST 2 INC INC VIEWS FRONTAL&L ATERAL SEDIMENTA 42566 [facility] KIRKON TION RATE 9 [facility] RBC INC INC NON-AUTOM ATED ECG 58202 [facility] ROUTINE 9 [facility] ECG INC INC W/LEAST 12 LDS TRCG ONLY W/O I&[place] [address] [facility] THYROID [address] [facility] STIMULATI INC INC NG HORMONE TSH Encounters Encounter Start End Date Code Location Performer Type Date [facility] - 7 7 [facility] OUTPATIEN [facility] - 7 7 [facility] OUTPATIEN [facility] T OFFICE 83684 [facility] OUTPATIEN 7 7 PHYSICIAN T VISIT S GROUP 15 MINUTES [facility] - 7 7 [facility] OUTPATIEN [facility] - [facility] [place] [address] [place] [facility] 7 7 MEDICAL JR DEPARTMEN SERV T VISIT FOUNDATIO HIGH/URGE N NT SEVERITY OFFICE 66790 [facility] OUTPATIEN 7 7 PHYSICIAN T VISIT S GROUP 15 MINUTES [facility]OSP[facility] - 7 7 [facility] - 7 7 [facility]PATI[facility] 31234 [facility] 7 7 PHYSICIAN T VISIT S GROUP 25 MINUTES OFFICE 90487 [facility] 7 7 PHYSICIAN T VISIT S GROUP 15 MINUTES [facility] OUTPATIEN INC T OFFICE 88044 [facility] PHYLLIS OUTPATIEN 6 6 PHYSICIAN T VISIT S GROUP 25 MINUTES [facility] - 6 6 [facility] OUTPATIEN INC T OFFICE 95434 [facility] PHYLLIS OUTPATIEN 6 6 PHYSICIAN BETO T VISIT S GROUP 25 MINUTES [facility] 6 6 [facility]PATIEN INC T [facility] - 6 6 [facility] OUTPATIEN INC T OFFICE 27532 [facility] PHYLLIS OUTPATIEN 6 6 PHYSICIAN BETO T VISIT S GROUP 25 MINUTES OFFICE 54226 [facility] PHYLLIS OUTPATIEN 6 6 PHYSICIAN BETO T VISIT S GROUP 15 MINUTES OFFICE 69646 [facility] OUTPATIEN 6 6 MAHIN MI T VISIT 15 MINUTES [facility] - 6 6 [facility] OUTPATIEN INC T OFFICE 70092 [facility] 6 6 [facility] T VISIT INC 10 MINUTES [facility] 6 6 [facility] OUTPATIEN INC T OFFICE 23126 [facility] OUTPATIEN 6 6 MAHIN MI T VISIT 15 MINUTES OFFICE 89333 [facility] PHYLLIS OUTPATIEN 6 6 PHYSICIAN BETO T VISIT S GROUP 10 MINUTES [facility] 6 6 [facility] OUTPATIEN INC T OFFICE 27612 [facility] OUTPATIEN 6 6 MAHIN MI T NEW 30 MINUTES OFFICE 13088 [facility] 6 6 [facility] T VISIT INC 10 MINUTES [facility] 6 6 [facility] OUTPAT[facility] T [facility] 6 [facility]PAT[facility] T [facility] 6 6 [facility]PATIEN INC T [facility] 6 6 [facility] OUTPATIEN INC T OFFICE 41230 [facility] 6 [facility] T VISIT INC 10 MINUTES [facility] 6 6 [facility] INC T OFFICE 00256 [facility] 6 6 PHYSICIAN BETO T VISIT S GROUP 10 MINUTES [facility] 6 6 [facility] OUTPATIEN INC [facility] 6 6 [facility] OUTPATIEN INC [facility] 6 6 [facility] OUTPATIEN INC T OFFICE 08237 [facility] PHYLLIS OUTPATIEN 6 6 PHYSICIAN BETO T VISIT S GROUP 15 MINUTES Emergency SIMON Blair MD (ER) 4 00:31 4 01:[address] [facility] OFFICE 06886 KASH HEWITT OUTPATIEN 0 0 [facility] T VISIT 15 MINUTES [facility] 0 0 [facility] OUTPATIEN INC T OFFICE 64555 LAROSE NEDA LACY 9 9 FAMILY KURT R T NEW 20 CHIROPRAC MINUTES TIC OFFICE 05390 KASH HEWITT, CONSULTPATTY 9 9 CARLOS SYLVESTER NEW/ESTAB PATIENT 60 MIN [facility] - 9 9 [facility] OUTPATIEN INC T OFFICE 42518 [facility] AMAYA OUTPATIEN 9 9 INNA Zaidi T VISIT 15 MINUTES OFFICE 96264 [facility] AMAYA OUTPATIEN 9 9 INNA Zaidi T NEW 60 MINUTES
--- OUTSIDE RECORDS SUMMARY | 2017-04-20 07:25 | External Medical Summary Rpt ---
Author Author , JEFFREY MURPHY Address Unknown Phone [email or web address]Medicalis Care Team Providers Care Manager Qa Name Role Phone INNA AMAYA, Unavailable Unavailable INNA AMAYA STEPHEN A, Unavailable Unavailable JIMBO CHACKO HARSHAL, HARSHAL Unavailable Unavailable CONDE ALL, CONDE ALL Unavailable Unavailable JULIA MI, JULIA Unavailable Unavailable MI HEWITT JARRETT, Unavailable Unavailable HEWITT JARRETT HEWITT JARRETT, Unavailable Unavailable HEWITTCARLOS BAEZ, Unavailable Unavailable [facility] Unavailable Unavailable [facility], [facility] STERLING LÓPEZ, Unavailable Unavailable STERLING LÓPEZ ECKERLINE JR, Unavailable Unavailable ECKERLINE JR FALLIS MAHIN, FALLIS Unavailable Unavailable MAHIN PHYLLIS PHYLLIS Unavailable Unavailable PHYLLIS BETO, PHYLLIS Unavailable Unavailable BETO KURT LACY, Unavailable Unavailable KURT LACY [facility] Unavailable Unavailable INC, [facility] NAMRATA SAENZ, Unavailable Unavailable NAMRATA SAENZ [facility], Unavailable Unavailable [facility] Unavailable Unavailable IM[facility], [facility] Leanna Blair MD, Unavailable Unavailable Leanna Blair MD [facility] RENATA SWEENEY, Unavailable Unavailable RENATA SWEENEY [id number], Unavailable Unavailable [id number] Unavailable Unavailable [id number] [address] [id number], [facility] [id number] [address] [id number] CARINE NEUMANN, CARINE Unavailable Unavailable [facility] Unavailable Unavailable [facility]OSPITALS, [facility] Unavailable Unavailable #591, [facility] Purpose Continuity of Care Document - 03-21-2009 through 2016 Problems Code Diagnosis DOS Provider Status [id number] OTHER LONG 02-17-2017 [facility] CURRENT INC DRUG THERAPY G8929 OTHER 12-23-2016 [facility] CHRONIC PHYSICIANS PAIN GROUP E11.9 Type 2 [...] LIMB BILATERAL R600 LOCALIZED 12-12-2016 [facility] Z0389 ENCOUNTER 12-12-2016 [facility] SUSPCT [facility] COND RULED OUT Z720 TOBACCO USE 12-12-2016 [facility] B1920 UNS VIRAL 11-25-2016 [facility] HEPATITIS C PHYSICIANS WITHOUT GROUP HEPATIC COMA E663 OVERWEIGHT 11-25-2016 [facility] M5116 INTERVERTEB 11-25-2016 [facility] RAL DISC PHYSICIANS D/O GROUP W/RADICULOP ATHY LUMB RGN M545 LOW BACK 11-25-2016 [facility] PAIN PHYSICIANS GROUP M1990 UNSPECIFIED 09-07-2016 [facility] PHYSICIANS OSTEOARTHRI GROUP TIS UNSPECIFIED SITE Z139 ENCOUNTER 07-29-2016 [facility] FOR PHYSICIANS SCREENING GROUP UNSPECIFIED Z23 ENCOUNTER 07-29-2016 [facility] FOR PHYSICIANS IMMUNIZATIO GROUP N B353 TINEA PEDIS 06-08-2016 [facility] PHYSIC[facility]ANS GROUP M9983 OTHER 06-08-2016 [facility] BIOMECHANIC PHYSICIANS AL LESIONS GROUP OF LUMBAR REGION M722 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 L79284 PAIN IN 04-07-2016 FALL[facility] MAHIN RIGHT FOOT B50366 PAIN IN 04-07-2016 FALL[facility] AMHIN LEFT FOOT G8918 OTHER ACUTE 03-31-2016 [facility] MAHIN POSTPROCEDU RAL PAIN I890 LYMPHEDEMA 03-31-2016 FALLIS MAHIN NOT ELSEWHERE CLASSIFIED W72968P DISPLACED 03-31-2016 FALL[facility] MAHIN FX 3RD METATARSAL LT FT SUBSQT FX RTN [id number] DSPL FX 03-31-2016 FALLIS MAHIN PROX PHALANX LT GREAT TOE SBSQT FX RTN Z4789 ENCOUNTER 03-17-2016 [facility] OTHER [facility] AFTERCARE E65924E UNS 02-29-2016 COMMUNITY FRACTURE LT ANESTH OF TOES THE BLUE INITIAL ENC CLOS FRACTURE E1142 TYPE 2 02-25-2016 FALLIS MAHIN DIABETES MELLITUS W/DIAB POLYNEUROPA THY M2570 OSTEOPHYTE 02-25-2016 FALLIS MAHIN UNSPECIFIED JOINT C71874Y DISPLACED 02-25-2016 FALLIS MAHIN FX 3RD METATARSAL LT FT INIT CLOS FX M13758L DSPL FX 02-25-2016 FALLIS MAHIN PROX PHALANX LT GREAT TOE INIT CLOS FX E99721W UNS 02-24-2016 [facility] FRACTURE LT PHYSICIANS FOOT GROUP INITIAL ENC CLOS FRACTURE T148 OTHER 02-24-2016 [facility] INJURY OF PHYSICIANS UNSPECIFIED GROUP BODY REGION Q11387 PAIN IN 02-21-2016 [facility]NEE [facility] R079 CHEST PAIN 02-21-2016 [facility] UNSPECIFIED [facility]ICAL [facility]ING [facility] M051IQO UNSPECIFIED 02-21-2016 [facility] INJURY OF MEDICAL THORAX IMAGING ASS INITIAL ENCOUNTER G5840IG UNS INJURY 02-21-2016 [facility] LT LOWER MEDICAL LEG INITIAL IMAGING ASS ENCOUNTER J66069Q NONDSPL FX 02-21-2016 [facility] 3RD MEDICAL METATARSAL IMAGING ASS LT FT INIT ENC CLOS FX Q12675E DSPL FX 02-21-2016 [facility] PROX PHALNX MEDICAL LT LESSER IMAGING ASS TOES INIT YONY FX L30756 PRIMARY 02-09-2016 [facility] TIS INC UNSPECIFIED SHOULDER M170 BILATERAL 12-15-2015 [facility] OSTEOARTHRI INC TIS OF KNEE M5136 OTH 11-30-2015 [facility] RAL DISC INC DEGEN LUMBAR REGION 607.1 607.1 10-19-2013 [facility] 4439 UNSPECIFIED 10-13-2009 HEWITT PERIPHERAL JARRETT VASCULAR DISEASE 4541 VARICOSE 10-13-2009 HEWITT VEINS LOWER JARRETT EXTREMITIES W/INFLAMMAT ION 4660 ACUTE 09-30-2009 [facility] 57382 CHRONIC 09-23-2009 BERT SAENZ W IS UNSPECIFIED 7279 DEGENERATIO 08-10-2009 [place] N OF FAMILY CERVICAL CHIROPRACTI INTERVERTEB C RAL DISC 60843 DEGEN 08-10-2009 [place] 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 INTERVERTEB RAL DISC 65877 DEGEN 08-10-2009 [place] LUMBAR/LUMB FAMILY OSACRAL CHIROPRACTI INTERVERTEB C RAL DISC 7395 NONALLOPATH 08-10-2009 [place] IC LESION FAMILY OF PELVIC CHIROPRACTI REGION NEC C 74476 DIAB W/O 07-28-2009 [facility] COMP TYPE [facility] II/UNS NOT HOSPITAL STATED PROF SERV UNCNTRL 50615 COR 07-28-2009 [facility] TYPE VESSEL PROF SERV KLETSEL DEHE WINT[place]/DELMI T [address] PERIPHERAL 07-28-2009 [facility] ANGIOPATHY [facility] CLASSIFIED PROF DARYA ELSW 23516 OBSTRUCTIVE 07-28-2009 [facility] CHRONIC [facility] BRONCHITIS [facility] WITH PROF DARYA EXACERBATIO N 52523 OBESITY, 03-21-2009 MONIQUE, UNSPECIFIED INNA Zaidi 4011 [...] 00 9- 1- 00 06 TO ve [place] 51 20 20 08 WN [place] 80 [...] 20 2- 0- 00 06 TO ve [place] 76 20 20 08 WN N 00 [...] 20 7- 2- 00 06 TO ve [place] 76 20 20 08 WN N 00 [...] 00 0- 2- 00 06 TO ve KS 51 20 20 08 WN [place] 80 [...] 00 3- 4- 00 06 TO ve KS 51 20 20 08 WN IL 80 [...] 20 7- 7- 00 06 TO ve [place] 76 20 20 08 WN N 00 [...] 00 3- 7- 00 06 TO ve KS 51 20 20 08 WN IL 80 [...] 00 5- 7- 00 06 TO ve KS 51 20 20 08 WN IL 80 [...] 20 5- 7- 00 06 TO ve [place] 76 20 20 08 WN N 00 [...] 07 WN ZA 93 16 17 84 KS 2 83 PH IN AR E MA 10 CY MG OF TA CY BL NT ET HI AN A LI 68 12 01 60 30 00 HO Ac SI 18 -2 -2 .0 00 ME ti NO 00 9- 0- 00 06 TO ve KS 51 20 20 07 WN IL 80 [...] 12 01 30 30 00 HO Ac KS 00 -2 -2 .0 00 ME ti [...] 20 9- 0- 00 06 TO ve [place] 76 20 20 07 WN N 00 [...] 34 4- 0- 00 24 LD ve KS 59 20 20 AI ED 31 10 [...] 34 4- 4- 00 24 LD ve KS 59 20 20 AI ED 31 10 [...] 82 1- 0- 00 33 LD ve KS 07 20 20 AI IL 40 09 [...] DOS Code Location Performer Comment DRUG TEST 74285 [facility] QUAL DIR INC INC OPTICAL OBS PER DAY DRUG TEST 15432 [facility] QUAL DIR INC INC OPTICAL OBS PER DAY DRUG TEST 58294 [facility] QUAL DIR INC INC OPTICAL OBS PER DAY COMPREHEN 29758 [facility] METABOLIC E [place] [address] [facility] LACTATE 7 [facility] HE[facility]CAR E E [facility]OS[facility]IT[facility] NATRIURET 49544 [place] IC 7 [facility] PEPTIDE E E HOSPITALS [facility]IT[facility] CREATINE 24038 [facility] KINASE 7 [facility] TOTAL E E HOSPITALS HOSPITALS DUP-SCAN 28974 [place] HARSHAL XTR VEINS 7 MEDICAL COMPLETE SERV FOUNDATIO BILATERAL N STUDY BLOOD 07301 [facility] COUNT 7 [facility] COMPLETE E E AUTOMATED HOSPITALS HOSPITALS DRUG TEST 18048 [facility] QUAL DIR INC INC OPTICAL OBS PER DAY DRUG TEST 05054 [facility] QUAL DIR INC INC OPTICAL OBS PER DAY DRUG TEST 54068 [facility] QUAL DIR INC INC OPTICAL OBS PER DAY DRUG TST G0477 [facility] PRES[facility];C [facility] PBL BEING INC INC READ DC OPT OBV ONLY DRUG TST G0477 [facility] PRESUMP;C [facility] PBL BEING INC INC READ DC OPT OBV ONLY IM ADM 07419 [facility] PHYLLIS PRQ ID 6 PHYSICIAN BETO SUBQ/IM S GROUP NJXS 1 VACCINE COMPREHEN 19173 [facility] SIVE [facility] METABOLIC INC INC PANEL HEMOGLOBI 80344 [facility] N [facility] GLYCOSYLA INC INC LATA A1C PPSV23 30561 [facility] VACCINE 2 6 PHYSICIAN BETO YRS OR S GROUP OLDER FOR SUBQ/IM USE BLOOD 30425 [facility] COUNT 6 [facility] MEM [...] INC READ DC OPT OBV ONLY REMOVAL 06193 [facility]IA IMPLANT 6 MAHIN MI DEEP APPLICATI 94038 [facility] JULIA ON RIGID 6 MAHIN MI TOTAL CONTACT LEG CAST RADIOLOGI 53003 [facility] ALL C 6 MEDICAL EXAMINATI IMAGING ON FOOT 2 ASS VIEWS RADEX 49100 [facility] FOOT [facility] COMPLETE INC INC MINIMUM 3 VIEWS ANES OPEN 56026 [facility] PROC 6 ANESTH NEL BONES OF THE LOWER BLUE LEG/ANKLE /FOOT NOS BLOOD 96002 [facility] COUNT [facility] COMPLETE INC INC AUTO&AUTO DIFRNTL WBC ADD LOW L2840 [facility] EXTREM 6 MAHIN MI ORTHOTIC TIB LENGTH SOCK FX/= EA WALKING L4360 [facility] JULIA BOOT 6 MAHIN MI PNEUMATC &/ VACUUM PREFAB CUSTM FIT RADIOLOGI 08936 [facility] C 6 MEDICAL EXAMINATI IMAGING ON KNEE ASS 1/2 VIEWS RADIOLOGI 14300 [facility] C 6 MEDICAL EXAMINATI IMAGING ON CHEST ASS SINGLE VIEW FRONTAL RADIOLOGI 64032 [facility] C 6 MEDICAL EXAMINATI IMAGING ON FOOT 2 ASS VIEWS DRUG 96722 [facility] SCREENING 6 [facility] OPIOIDS INC INC & OPIATE ANALOGS 5/MORE DRUG TST G0477 [facility] PRESUMP;C 6 [facility] PBL BEING INC INC READ DC OPT OBV ONLY ARTHROCEN 00870 [facility] TESIS [facility] ASPIR&/IN INC INC J MAJOR JT/BURSA W/O US INJECTION J1030 [facility] METHYLPRE INC INC DNISOLONE ACETATE 40 MG PROSTATE G0103 [facility] CANCER [facility] SCREENING INC INC ; PSA TEST BLOOD 12525 [facility] COUNT 6 [facility] COMPLETE INC INC AUTO&AUTO DIFRNTL WBC COMPREHEN 73864 [facility] SIVE [facility] METABOLIC INC INC PANEL HEMOGLOBI 23151 [facility] N 6 [facility] GLYCOS[place] [address] [facility] PROSTATE 6 [facility] SPECIFIC INC INC ANTIGEN FREE MRI 32718 [facility] SPINAL [facility] CANAL INC INC LUMBAR W/O CONTRAST MATERIAL DRUG TST G0477 [facility] PRESUMP;C 6 [facility] PBL BEING INC INC READ DC OPT OBV ONLY DRUG TST G0477 [facility] PRESUMP;C 6 [facility] PBL BEING INC INC READ DC OPT OBV ONLY ALBUMIN 58024 [facility] URINE [facility] MICROALBU INC INC MIN QUANTIATI VE HEMOGLOBI 41713 [facility] N 6 [facility] GLYCOSYLA INC INC LATA A1C BASIC 56550 [facility] METABOLIC 6 [facility] PANEL INC INC CALCIUM TOTAL DRUG 58979 [facility] SCREEN 6 [facility] LIST A INC INC SINGLE DRUG CLASS METHOD NON-INVAS 48840 [facility]AY[facility]D DAVIS 0 MEDICAL [facility] PHYSIOLOG IMAGING IC STUDY ASSOCIATE EXTREMITY S 3 LEVLS GINGIVOPL 35955 LETTY SAENZ ASTY EACH 0 , NAMRATA OTT W SPECIFY ORTHOPANT 43737 LETTY SAENZ OGRAM 0 , NAMRATA OTT APPL 61210 SUYAPA LACY, SHA 9 FAMILY KURT R 1/> AREAS CHIROPRAC ELEC TIC STIMJ UNATTENDE D CHIROPRAC 85130 SHIRIN RODRIGUES 9 FAMILY KURT R MANIPULAT CHIROPRAC [place] TIC SPINAL 3-4 REGIONS THERAPEUT [address] [place] 1/> 9 FAMILY KURT R AREAS CHIROPRAC EACH 15 TIC MIN EXERCISES THERAPEUT 59842 [place] 1/> 9 FAMILY KURT R AREAS CHIROPRAC EACH 15 TIC MIN EXERCISES SELF-CARE 44121 SUYAPA LACY, /HOME 9 FAMILY KURT R MGMT CHIROPRAC TRAINING TIC EACH 15 MINUTES CHIROPRAC 57048 SHIRIN RODRIGUES 9 FAMILY KURT R MANIPULAT CHIROPRAC [place] TIC SPINAL 3-4 REGIONS APPL 19068 SHA RODRIGUES 9 FAMILY KURT R 1/> AREAS CHIROPRAC ELEC TIC STIMJ UNATTENDE D APPL 28314 [place] LACY, MODALITY 9 FAMILY KURT R 1/> AREAS CHIROPRAC TRACTION TIC MECHANICA L APPL 43063 SUY[place]A LACY, MODALITY 9 FAMILY KURT R 1/> AREAS CHIROPRAC ELEC TIC STIMJ EA 15 MIN APPL 85046 SUY[place]A LACY, MODALITY 9 FAMILY KURT R 1/> AREAS CHIROPRAC ELEC TIC STIMJ UNATTENDE D CHIROPRAC 57043 SUY[place]A LACY, TIC 9 FAMILY KURT R MANIPULAT CHIROPRAC [place] TX TIC SPINAL 3-4 REGIONS APPL 12008 SUYAPA LACY, MODALITY 9 FAMILY KURT R 1/> AREAS CHIROPRAC TRACTION TIC MECHANICA L RADEX 51930 SUY[place]A LACY, SPINE 9 FAMILY KURT R CERVICAL CHIROPRAC 2 OR 3 TIC VIEWS THERAPEUT 50120 SUY[place]A LACY, IC PX 1/> 9 FAMILY KURT R AREAS CHIROPRAC EACH 15 TIC MIN EXERCISES CHIROPRAC 22794 SUY[place]A LACY, TIC 9 FAMILY KURT R MANIPLTV CHIROPRAC TX TIC EXTRASPIN AL 1/> REGION SELF-CARE 55806 SUYAPA LACY, /HOME 9 FAMILY KURT R MGMT CHIROPRAC TRAINING TIC EACH 15 MINUTES RADEX 61117 SUY[place]A LACY, SPINE 9 FAMILY KURT R LUMBOSACR CHIROPRAC AL 2/3 TIC VIEWS PROSTATE G0103 [facility] SCREENING INC INC ; PSA TEST BILIRUBIN 77968 [facility] DIRECT 9 [place] [address] [facility] THYROXINE 9 [facility] TOTAL INC INC ECG 64322 [facility] CHACKO, ROUTINE 9 [facility] W/LEAST PROF SERV 12 LDS I&R ONLY THYROID 67311 [facility] HORM 9 [facility] UPTK/THYR INC INC OID HORMONE BINDING RATIO BLOOD 79926 [facility] COUNT 9 [facility] COMPLETE INC INC AUTO&AUTO DIFRNTL WBC LIPID 37209 [facility] PANEL 9 [facility] INC INC HEMOGLOBI 21387 [facility] N 9 [facility] GLYCOSYLA INC INC LATA A1C COMPREHEN 54196 [facility] SIVE 9 [facility] METABOLIC INC INC PANEL RADIOLOGI 12278 [facility] C EXAM 9 [facility] CHEST 2 INC INC VIEWS FRONTAL&L ATERAL SEDIMENTA 11719 [facility] KIRKON TION RATE 9 [facility] RBC INC INC NON-AUTOM ATED ECG 83818 [facility] ROUTINE 9 [facility] ECG INC INC W/LEAST 12 LDS TRCG ONLY W/O I&[place] [address] [facility] THYROID 9 [facility] HOSP STIMULATI INC INC NG HORMONE TSH Encounters Encounter Start End Date Code Location Performer Type Date [facility] 7 7 [facility] - 7 7 [facility] T OFFICE 29335 [facility] OUTPATIEN 7 7 PHYSICIAN T VISIT S GROUP 15 MINUTES [facility] - 7 7 [facility] - 7 [facility] [place] 61869 [place] ECKER[facility] 7 7 MEDICAL JR DEPARTMEN SERV T VISIT FOUNDATIO HIGH/URGE N NT SEVERITY OFFICE 06843 [facility] OUTPATIEN 7 7 PHYSICIAN T VISIT S GROUP 15 MINUTES [facility] - 7 7 [facility]EN [facility] - 7 7 [facility] T OFF[facility] 70567 [facility] PHYSICIAN T VISIT S GROUP 25 MINUTES OFFICE 89691 [facility] 7 PHYSICIAN T VISIT S GROUP 15 MINUTES [facility] OUTPATIEN INC T OFFICE 08044 [facility] PHYLLIS OUTPATIEN 6 6 PHYSICIAN T VISIT S GROUP 25 MINUTES [facility] - 6 6 [facility] OUTPATIEN INC T OFFICE 12006 [facility] PHYLLIS OUTPATIEN 6 6 PHYSICIAN BETO T VISIT S GROUP 25 MINUTES [facility] 6 6 [facility] OUT[facility]IEN INC T [facility] 6 [facility] OUTPATIEN INC T OFFICE 81378 [facility] PHYLLIS OUTPATIEN 6 6 PHYSICIAN BETO T VISIT S GROUP 25 MINUTES OFFICE 26617 [facility] PHYLLIS OUTPATIEN 6 6 PHYSICIAN BETO T VISIT S GROUP 15 MINUTES OFFICE 90690 [facility] JULIA OUTPATIEN 6 6 MAHIN MI T VISIT 15 MINUTES [facility] 6 [facility] INC T OFFICE 99187 [facility] 6 6 [facility] T VISIT INC 10 MINUTES [facility] 6 6 [facility] OUTPATIEN INC T OFFICE 40465 [facility] JULIA OUTPATIEN 6 6 MAHIN MI T VISIT 15 MINUTES OFFICE 80954 [facility] PHYLLIS OUTPATIEN 6 6 PHYSICIAN BETO T VISIT S GROUP 10 MINUTES [facility] 6 6 [facility] OUTPATIEN INC T OFFICE 05466 [facility] JULIA OUTPATIEN 6 6 MAHIN MI T NEW 30 MINUTES OFFICE 26166 [facility] 6 6 [facility] T VISIT INC 10 MINUTES [facility] 6 6 [facility] OUTPATIEN INC T [facility] OUTPATIEN [facility] T [facility] 6 6 [facility]PATIEN INC T [facility] 6 6 [facility]PATIEN INC T OFFICE 46533 [facility] 6 6 [facility] T VISIT INC 10 MINUTES [facility] 6 6 [facility] T [facility] 88016 [facility] 6 PHYSICIAN BETO T VISIT S GROUP 10 MINUTES [facility] 6 6 [facility] OUTPATIEN INC [facility] OUTPATIEN INC [facility] 6 6 [facility] OUTPATIEN INC T OFFICE 12694 [facility] PHYLLIS OUTPATIEN 6 6 PHYSICIAN BETO T VISIT S GROUP 15 MINUTES Emergency SIMON Blair MD (ER) 4 00:31 4 01:15 [facility] OFFICE 22102 K[facility] HEWITT OUTPATIEN 0 0 [facility] T VISIT 15 MINUTES [facility] 0 0 [facility] OUTPATIEN INC T OFFICE 19173 [place] [facility] 9 9 FAMILY KURT R T NEW 20 CHIROPRAC MINUTES TIC OFFICE 48270 KASH HEWITT, CONSULTPATTY 9 9 CARLOS SYLVESTER NEW/ESTAB PATIENT 60 MIN [facility] 9 9 [facility] OUTPATIEN INC T OFFICE 23786 [facility] AMAYA OUTPATIEN 9 9 INNA Zaidi T VISIT 15 MINUTES OFFICE 86790 [facility] AMAYA OUTPATIEN 9 9 INNA Zaidi T NEW 60 MINUTES
--- OUTSIDE RECORDS SUMMARY | 2017-04-20 07:28 | External Medical Summary Rpt ---
Author Author , JEFFREY MURPHY Address Unknown Phone [email or web address] Care Team Providers Care Hydraulic Tester Name Role Phone INNA AMAYA, Unavailable Unavailable INNA AMAYA STEPHEN A, Unavailable Unavailable JIMBO CHACKO HARSHAL, HARSHAL Unavailable Unavailable CONDE ALL, CONDE ALL Unavailable Unavailable JULIA MI, JULIA Unavailable Unavailable MI HEWITT JARRETT, Unavailable Unavailable HEWITT JARRETT FARIAS, Unavailable Unavailable HEWITTCARLOS BAEZ, Unavailable Unavailable [facility] Unavailable Unavailable [facility], [facility] STERLING LÓPEZ, Unavailable Unavailable STERLING LÓPEZ ECKERLINE JR, Unavailable Unavailable ECKERLINE JR FALLIS MAHIN, FALLIS Unavailable Unavailable MAHIN PATRICIA FERGUSONEY Unavailable Unavailable PHYLLIS BETO, PHYLLIS Unavailable Unavailable BETO KURT LACY, Unavailable Unavailable KURT LACY [facility] Unavailable Unavailable INC, [facility] NAMRATA SAENZ, Unavailable Unavailable NAMRATA SAENZ [facility], Unavailable Unavailable [facility] Unavailable [facility]available IMAGING [facility], [facility] RENATA SWEENEY, Unavailable Unavailable RENATA SWEENEY [id number], Unavailable Unavailable [id number] Unavailable Unavailable [id number] # [id number], [facility] [id number] # [id number] CARINE KEY Unavailable Unavailable NEL [facility] Unavailable Unavailable HOSPITALS, [facility] Unavailable Unavailable #591, [facility] Purpose Continuity of Care Document - 03-21-2009 through 2016 Problems Code Diagnosis DOS Provider Status [id number] OTHER LONG 02-17-2017 [facility] CURRENT INC DRUG THERAPY G8929 OTHER 12-23-2016 [facility] CHRONIC [facility]YSICIANS PAIN GROUP E119 TYPE 2 12-12-2016 DIABETES [facility] WITHOUT COMPLICATIO NS I10 ESSENTIAL 12-12-2016 PRIMARY [facility] R2243 LOC 12-12-2016 [place] [facility] [place] BILATERAL R600 LOCALIZED 12-12-2016 [facility] Z0389 ENCOUNTER 12-12-2016 [place] [facility] SERV SUSPCT [facility] COND RULED OUT Z720 TOBACCO USE 12-12-2016 [facility] B1920 UNS VIRAL 11-25-2016 [facility] HEPATITIS C PHYSICIANS WITHOUT GROUP HEPATIC COMA E663 OVERWEIGHT 11-25-2016 [facility] M5116 INTERVERTEB 11-25-2016 [facility] RAL DISC PHYSICIANS D/O GROUP W/RADICULOP ATHY LUMB RGN M545 LOW BACK 11-25-2016 [facility] PAIN PHYSICIANS GROUP M1990 UNSPECIFIED 09-07-2016 [facility] OSTEOARTHRI GROUP TIS UNSPECIFIED SITE Z139 ENCOUNTER 07-29-2016 [facility] SCREENING GROUP UNSPECIFIED Z23 ENCOUNTER 07-29-2016 [facility] IMMUNIZATIO GROUP N B353 TINEA PEDIS 06-08-2016 [facility] M9983 OTHER 06-08-2016 [facility] BIOMECHANIC PHYSICIANS AL LESIONS GROUP OF LUMBAR REGION M722 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 Q47866 PAIN IN 04-07-2016 FALLIS MAHIN RIGHT FOOT Z38806 PAIN IN 04-07-2016 FALL[facility] MAHIN LEFT FOOT G8918 OTHER ACUTE 03-31-2016 FALLIS MAHIN POSTPROCEDU RAL PAIN I890 LYMPHEDEMA 03-31-2016 FALLIS MAHIN NOT ELSEWHERE CLASSIFIED G90446L DISPLACED 03-31-2016 FALLIS MAHIN FX 3RD METATARSAL LT FT SUBSQT FX RTN H76078C DSPL FX 03-31-2016 FALLIS MAHIN PROX PHALANX LT GREAT TOE SBSQT FX RTN Z4789 ENCOUNTER 03-17-2016 [facility] FOR OTHER [facility]OP[facility]IC [facility] AFTERCARE A28541M UNS 02-29-2016 COMMUNITY FRACTURE LT ANESTH OF TOES THE [facility]UE INITIAL ENC CLOS FRACTURE E1142 TYPE 2 02-25-2016 FALLIS MAHIN DIABETES MELLITUS W/DIAB POLYNEUROPA THY M2570 OSTEOPHYTE 02-25-2016 FALLIS MAHIN UNSPECIFIED JOINT Z03838T DISPLACED 02-25-2016 FALLIS MAHIN FX 3RD METATARSAL LT FT INIT CLOS FX X45790S DSPL FX 02-25-2016 FALLIS MAHIN PROX PHALANX LT GREAT TOE INIT CLOS FX O38299T UNS 02-24-2016 [facility] FRACTURE LT PHYSICIANS FOOT GROUP INITIAL ENC CLOS FRACTURE T148 OTHER 02-24-2016 [facility] INJURY OF PHYSICIANS UNSPECIFIED GROUP BODY REGION S96195 PAIN IN 02-21-2016 [facility] LEFT KNEE [facility] R079 CHEST PAIN 02-21-2016 [facility] UNSPECIFIED MEDICAL IMAGING ASS R181XTX UNSPECIFIED 02-21-2016 [facility] INJURY OF MEDICAL THORAX IMAGING ASS INITIAL ENCOUNTER O0402VN UNS INJURY 02-21-2016 [facility] LT LOWER MEDICAL LEG INITIAL IMAGING ASS ENCOUNTER L95531M NONDSPL FX 02-21-2016 [facility] 3RD MEDICAL METATARSAL IMAGING ASS LT FT INIT ENC CLOS FX P62019S DSPL FX 02-21-2016 [facility] PROX PHALNX MEDICAL LT LESSER IMAGING ASS TOES INIT YONY FX L99703 PRIMARY 02-09-2016 [facility] TIS INC UNSPECIFIED SHOULDER M170 BILATERAL 12-15-2015 [facility] OSTEOARTHRI INC TIS OF KNEE M5136 OTH 11-30-2015 [facility] RAL DISC INC DEGEN LUMBAR REGION 4439 UNSPECIFIED 10-13-2009 [facility] PERIPHERAL JARRETT VASCULAR DISEASE 4541 VARICOSE 10-13-2009 [facility] VEINS LOWER JARRETT EXTREMITIES W/INFLAMMAT ION 4660 ACUTE 09-30-2009 [facility] 73280 CHRONIC 09-23-2009 BERT SAENZ W IS UNSPECIFIED 7224 DEGENERATIO 08-10-2009 [place] N OF FAMILY CERVICAL CHIROPRACTI INTERVERTEB C RAL DISC 22628 DEGEN 08-10-2009 [place] 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 INTERVERTEB RAL DISC 67343 DEGEN 08-10-2009 [place] LUMBAR/LUMB FAMILY OSACRAL CHIROPRACTI INTERVERTEB C RAL DISC 7395 NONALLOPATH 08-10-2009 [place] IC LESION FAMILY OF PELVIC CHIROPRACTI REGION NEC C 87906 DIAB W/O 07-28-2009 [place] COMP TYPE [facility] II/UNS NOT HOSPITAL STATED PROF DARYA UNCNTRL 56784 COR 07-28-2009 [place] [facility] UNSPEC HOSPITAL TYPE VESSEL PROF SERV CHIGN[place] LAG[place]/DEL[place] T [address] PERIPHERAL 07-28-2009 [place] ANGIOPATHY [facility] CLASSIFIED PROF SERV ELSW 15593 OBSTRUCTIVE 07-28-2009 [facility] WITH PROF SERV EXACERBATIO N 74512 OBESITY, 03-21-2009 MONIQUE, UNSPECIFIED INNA W 4011 [...] 00 9- 1- 00 06 TO ve ND 51 20 20 08 WN IL 80 [...] 20 2- 0- 00 06 TO ve OK 76 20 20 08 WN N 00 [...] 20 7- 2- 00 06 TO ve OK 76 20 20 08 WN N 00 [...] 00 0- 2- 00 06 TO ve ND 51 20 20 08 WN IL 80 [...] 00 3- 4- 00 06 TO ve ND 51 20 20 08 WN IL 80 [...] 20 7- 7- 00 06 TO ve OK 76 20 20 08 WN N 00 [...] 00 3- 7- 00 06 TO ve ND 51 20 20 08 WN IL 80 [...] 00 5- 7- 00 06 TO ve ND 51 20 20 08 WN IL 80 [...] 20 5- 7- 00 06 TO ve OK 76 20 20 08 WN N 00 [...] 07 WN ZA 93 16 17 84 ND 2 83 PH IN AR E MA 10 CY MG OF TA CY BL NT ET HI AN A LI 68 12 01 60 30 00 HO Ac SI 18 -2 -2 .0 00 ME ti NO 00 9- 0- 00 06 TO ve ND 51 20 20 07 WN IL 80 [...] 12 01 30 30 00 HO Ac ND 00 -2 -2 .0 00 ME ti [...] 20 9- 0- 00 06 TO ve OK 76 20 20 07 WN N 00 [...] 34 4- 0- 00 24 LD ve ND 59 20 20 AI ED 31 10 [...] 34 4- 4- 00 24 LD ve ND 59 20 20 AI ED 31 10 [...] 82 1- 0- 00 33 LD ve ND 07 20 20 AI IL 40 09 [...] DOS Code Location Performer Comment DRUG TEST 24327 [facility] QUAL DIR INC INC OPTICAL OBS PER DAY DRUG TEST 10110 [facility] QUAL DIR INC INC OPTICAL OBS PER DAY DRUG TEST 84537 [facility] QUAL DIR INC INC OPTICAL OBS PER DAY COMPREHEN 10187 [place] SIVE 7 [facility]ALTH[facility]ALTH[facility] METABOLIC E E PANEL [facility] [place] [address] [place] LACTATE 7 HEALTHCAR HEALTHCAR E E [facility] DUP-SCAN 84280 [place] HARSHAL XTR VEINS 7 MEDICAL COMPLETE SERV FOUNDATIO BILATERAL N STUDY CREATINE 13453 [facility] KINASE 7 [facility]ALTHCAR [facility]ALTHCAR TOTAL E E [facility] BLOOD 99618 [facility] COUNT 7 [facility]ALTHCAR HEALTHCAR COMPLETE E E AUTOMATED [facility] NATRIURET 95294 [facility] IC 7 [facility]ALTHCAR HEALTHCAR PEPTIDE E E HOSPITALS HOSPITALS DRUG TEST 73369 [facility] QUAL DIR INC INC OPTICAL OBS PER DAY DRUG TEST 01706 [facility] QUAL DIR INC INC OPTICAL OBS PER DAY DRUG TEST 42104 [facility] QUAL DIR INC INC OPTICAL OBS PER DAY DRUG TST G0477 [facility] PRESUMP;C [facility] PBL BEING INC INC READ DC OPT OBV ONLY DRUG TST G0477 [facility] PRESUMP;C 6 [facility] PBL BEING INC INC READ DC OPT OBV ONLY PPSV23 75226 [facility] PHYLLIS VACCINE 2 6 PHYSICIAN BETO YRS OR S GROUP OLDER FOR SUBQ/IM USE BLOOD 80004 [facility] COUNT [facility] COMPLETE INC INC AUTO&AUTO DIFRNTL WBC HEMOGLOBI 75937 [facility] N 6 [facility] GLYCOSYLA INC INC LATA A1C COMPREHEN 94625 [facility] SIVE [facility] METABOLIC INC INC PANEL IM ADM 57686 [facility] PRQ ID 6 PHYSICIAN BETO SUBQ/IM S [...] INC READ DC OPT OBV ONLY REMOVAL 25716 [facility] JULIA IMPLANT 6 MAHIN MI DEEP APPLICATI 44034 [facility] JULIA ON RIGID 6 MAHIN MI TOTAL CONTACT LEG CAST RADIOLOGI 86293 [facility] CONDE ALL C 6 MEDICAL EXAMINATI IMAGING ON FOOT 2 ASS VIEWS RADEX 16374 [facility] FOOT [facility] COMPLETE INC INC MINIMUM 3 VIEWS ANES OPEN 97913 [facility] PROC 6 ANESTH NEL BONES OF THE LOWER BLUE LEG/ANKLE /FOOT NOS BLOOD 12307 [facility] COUNT [facility] COMPLETE INC INC AUTO&AUTO DIFRNTL WBC ADD LOW L2840 [facility] JULIA EXTREM 6 MAHIN MI ORTHOTIC TIB LENGTH SOCK FX/= EA WALKING L4360 HONEY STOCKTONANT BOOT 6 MAHIN MI PNEUMATC &/ VACUUM PREFAB CUSTM FIT RADIOLOGI 94388 GEET[facility] CONDE ALL C 6 MEDICAL EXAMINATI IMAGING ON KNEE ASS 1/2 VIEWS RADIOLOGI 53341 GEETHA CONDE ALL C 6 MEDICAL EXAMINATI IMAGING ON CHEST ASS SINGLE VIEW FRONTAL RADIOLOGI 63961 GE[facility] CONDE ALL C 6 MEDICAL EXAMINATI IMAGING ON FOOT 2 ASS VIEWS DRUG TST G0477 [facility] PRESUMP;C 6 [facility] PBL BEING INC INC READ DC OPT OBV ONLY DRUG 75532 [facility] SCREENING 6 [facility] OPIOIDS INC INC & OPIATE ANALOGS 5/MORE INJECTION J1030 [facility] METHYLPRE INC INC DNISOLONE ACETATE 40 MG ARTHROCEN 66776 [facility] TESIS 6 [facility] ASPIR&/IN INC INC J MAJOR JT/BURSA W/O US BLOOD 75643 [facility] COUNT 6 [facility] COMPLETE INC INC AUTO&AUTO DIFRNTL WBC PROSTATE G0103 [facility] CANCER 6 [facility] SCREENING INC INC ; PSA TEST HEMOGLOBI 25835 [facility] N 6 [facility] GLY[place]OS[place] [address] [facility] PROSTATE 6 [facility] SPECIFIC INC INC ANTIGEN FREE COMPREHEN 09332 [facility] SIVE [facility] METABOLIC INC INC PANEL MRI 23910 [facility] SPINAL 6 [facility] CANAL INC INC LUMBAR W/O CONTRAST MATERIAL DRUG TST G0477 [facility] PRESUMP;C 6 [facility] PBL BEING INC INC READ DC OPT OBV ONLY DRUG TST G0477 [facility] PRESUMP;C 6 [facility] PBL BEING INC INC READ DC OPT OBV ONLY ALBUMIN 06996 [facility] URINE 6 [facility] MICROALBU INC INC MIN QUANTIATI VE BASIC 69453 [facility] METABOLIC 6 [facility] PANEL INC INC CALCIUM TOTAL HEMOGLOBI 79064 [facility] N 6 [facility] GLYCOSYLA INC INC LATA A1C DRUG 90347 [facility] SCREEN 6 [facility] LIST A INC INC SINGLE DRUG CLASS METHOD NON-INVAS 58478 GEETHA RODRIGUEZUTCHER, RAYMOND 0 MEDICAL STERLING PHYSIOLOG IMAGING IC STUDY ASSOCIATE EXTREMITY S 3 LEVLS GINGIVOPL 39088 LETTY SAENZ ASTY EACH 0 , NAMRATA OTT QUADRANT W W SPECIFY ORTHOPANT 81383 LETTY SAENZ OGRAM 0 , NAMRATA OTT APPL 11802 SUYAPA LACY, SHA 9 FAMILY KURT R 1/> AREAS CHIROPRAC ELEC TIC STIMJ UNATTENDE D CHIROPRAC 54935 SUYAPA LACY, SHIRIN 9 FAMILY KURT R MANIPULAT CHIROPRAC [place] TIC SPINAL 3-4 REGIONS THERAPEUT 96975 SUYAPA LACY, HAYDEN PX 1/> 9 FAMILY KURT R AREAS CHIROPRAC EACH 15 TIC MIN EXERCISES CHIROPRAC 52012 SUYAPA LACY, TIC 9 FAMILY KURT R MANIPULAT CHIROPRAC [place] TX TIC SPINAL 3-4 REGIONS THERAPEUT 38437 SUYAPA LACY, HAYDEN PX 1/> 9 FAMILY KURT R AREAS CHIROPRAC EACH 15 TIC MIN EXERCISES APPL 51998 SHA RODRIGUES 9 FAMILY KURT R 1/> AREAS CHIROPRAC ELEC TIC STIMJ UNATTENDE D APPL 79585 SUYAPA LACY MODALITY 9 FAMILY KURT R 1/> AREAS CHIROPRAC TRACTION TIC MECHANICA L SELF-CARE 29359 SUY[facility]A LACY, /HOME 9 FAMILY KURT R MGMT CHIROPRAC TRAINING TIC EACH 15 MINUTES APPL 13780 SUY[place]A LACY, SHA 9 FAMILY KURT R 1/> AREAS CHIROPRAC ELEC TIC STIMJ EA 15 MIN APPL 79722 SHA RODRIGUES 9 FAMILY KURT R 1/> AREAS CHIROPRAC TRACTION TIC MECHANICA L CHIROPRAC 48209 SUYAPA LACY, TIC 9 FAMILY KURT R MANIPLTV CHIROPRAC TX TIC EXTRASPIN AL 1/> REGION APPL 16864 SUYAPA LACY, MODALITY 9 FAMILY KURT R 1/> AREAS CHIROPRAC ELEC TIC STIMJ UNATTENDE D SELF-CARE 01317 SUY[facility]A LACY, /HOME 9 FAMILY KURT R MGMT CHIROPRAC TRAINING TIC EACH 15 MINUTES RADEX 14411 SUYAPA LACY, SPINE 9 FAMILY KURT R CERVICAL CHIROPRAC 2 OR 3 TIC VIEWS CHIROPRAC 71833 SHIRIN RODRIGUES 9 FAMILY KURT R MANIPULAT CHIROPRAC [place] TIC SPINAL 3-4 REGIONS THERAPEUT 35696 SUYAPA LACY, IC PX 1/> 9 FAMILY KURT R AREAS CHIROPRAC EACH 15 TIC MIN EXERCISES RADEX 26811 SUYAPA LACY SPINE 9 FAMILY KURT R LUMBOSACR CHIROPRAC AL 2/3 [place] [address] [facility] THYROXINE 9 [facility] TOTAL INC INC SEDIMENTA 02713 [facility] TION RATE 9 [facility] RBC INC INC NON-AUTOM ATED BILIRUBIN 45617 [facility] DIRECT 9 [facility] INC INC THYROID 99103 [facility] HORM 9 [facility] UPTK/THYR INC INC OID HORMONE BINDING RATIO BLOOD 94446 [facility] COUNT 9 [facility] COMPLETE INC INC AUTO&AUTO DIFRNTL WBC COMPREHEN 25632 [facility] SIVE 9 [facility] METABOLIC INC INC PANEL RADIOLOGI 09824 [facility] C EXAM 9 [facility] CHEST 2 INC INC VIEWS FRONTAL&L ATERAL ECG 09910 NASIM BOLAÑOS 9 [facility] W/LEAST PROF SERV 12 LDS I&[place] [address] [facility] THYROID 9 [facility] STIMULATI INC INC NG HORMONE TSH LIPID 50724 [facility] PANEL 9 [facility] INC INC HEMOGLOBI 95965 [facility] N 9 [facility] GLYCOSYLA INC INC LATA A1C PROSTATE G0103 [facility] CANCER 9 [facility] SCREENING INC INC ; PSA TEST ECG 24035 [facility] ROUTINE 9 [facility] ECG INC INC W/LEAST 12 LDS TRCG ONLY W/O I&R Encounters Encounter Start End Date Code Location Performer Type Date [facility] 7 [facility] OUTPATIEN INC [facility] - 7 7 [facility] - 7 7 [facility] INC T [facility] 11860 [facility] 7 PHYSICIAN T VISIT S GROUP 15 MINUTES [facility] 7 [facility] 95149 [place] ECKERLINE 7 7 MEDICAL JR DEPARTMEN SERV T VISIT FOUNDATIO HIGH/URGE N NT [facility] - 7 7 [facility]PAT[facility] T OFFICE 12742 [facility] 7 PHYSICIAN T VISIT S GROUP 15 MINUTES [facility] 7 [facility] INC T OFFICE 28253 [facility] OUTPATIEN 7 7 PHYSICIAN T VISIT S GROUP 25 MINUTES [facility] 7 7 [facility] INC T OFFICE 88739 [facility] OUTPATI[facility] 7 7 PHYSICIAN T VISIT S GROUP 15 MINUTES OFFICE 58980 [facility] OUTPATI[facility] 6 6 PHYSICIAN T VISIT S GROUP 25 MINUTES [facility] 6 6 [facility] INC T OFFICE 65650 [facility] OUTPATIEN 6 6 PHYSICIAN BETO T VISIT S GROUP 25 MINUTES [facility] - 6 6 [facility] T [facility] T OFFICE 30632 [facility] OUT[facility] 6 6 PHYSICIAN BETO T VISIT S GROUP 25 MINUTES OFFICE 52148 [facility] OUTPATIEN 6 6 PHYSICIAN BETO T VISIT S GROUP 15 MINUTES OFFICE 86812 [facility] J[facility]IA OUTPATIEN 6 6 MAHIN MI T VISIT 15 MINUTES [facility] T OFFICE 23856 [facility] 6 6 [facility] T VISIT INC 10 MINUTES [facility] OUTPATIEN INC T OFFICE 58364 [facility] OUTPATIEN 6 6 MAHIN MI T VISIT 15 MINUTES OFFICE 78299 [facility] OUTPATIEN 6 6 PHYSICIAN BETO T VISIT S GROUP 10 MINUTES [facility] OUTPATIEN INC T OFFICE 50932 [facility] JULIA OUTPATIEN 6 6 MAHIN MI T NEW 30 MINUTES [facility] 6 6 [facility] OUTPATIEN INC T OFFICE 25003 [facility] 6 6 [facility] T VISIT INC 10 MINUTES [facility] 6 6 [facility]PAT[facility] T [facility] T [facility] T [facility] OUT[facility] INC T OFFICE 25819 [facility] 6 6 [facility] T VISIT INC 10 MINUTES OFFICE 39566 [facility] 6 PHYSICIAN BETO T VISIT S GROUP 10 MINUTES [facility] T [facility] OUTPATI[facility] INC T OFFICE 25308 [facility] OUTPATIEN 6 6 PHYSICIAN BETO T VISIT S GROUP 15 MINUTES [facility] 6 [facility] OUTPATIEN INC T OFFICE 25615 [facility] OUTPATIEN 0 0 JARRETT JARRETT T VISIT 15 MINUTES [facility] - 0 0 [facility] OUTPATIEN INC T OFFICE 68063 [place] 9 9 FAMILY KURT R T WILTON 20 CHIROPRAC MINUTES TIC OFFICE 11083 KASH HEWITT, CONSULTAT 9 9 CARLOS Carr ION [facility] PATIENT 60 MIN [facility] 9 9 [facility] OUTPATIEN INC T OFFICE 45346 [facility] AMAYA OUTPATIEN 9 9 INNA Zaidi T VISIT 15 MINUTES OFFICE 15734 MONIQUE AMAYA OUTPATIEN 9 9 INNA Zaidi T NEW 60 MINUTES
--- OUTSIDE RECORDS SUMMARY | 2017-04-20 07:28 | External Medical Summary Rpt ---
Author Author , JEFFREY MURPHY Address Unknown Phone [email or web address] Care Team Providers Care Director Market Intelligence Name Role Phone INNA AMAYA, Unavailable Unavailable INNA AMAYA STEPHEN A, Unavailable Unavailable JIMBO CHACKO HARSHAL, HARSHAL Unavailable Unavailable CONDE ALL, CONDE ALL Unavailable Unavailable JULIA MI, JULIA Unavailable Unavailable MI HEWITT JARRETT, Unavailable Unavailable HEWITT JARRETT FARIAS, Unavailable Unavailable HEWITTCARLOS BAEZ, Unavailable Unavailable [facility] Unavailable Unavailable THE [facility], [facility] STERLING LÓPEZ, Unavailable Unavailable STERLING LÓPEZ ECKERLINE JR, Unavailable Unavailable ECKERLINE JR FALLIS MAHIN, FALLIS Unavailable Unavailable MAHIN PATRICIA FERGUSONEY Unavailable Unavailable PHYLLIS BETO, PHYLLIS Unavailable Unavailable BETO KURT LACY, Unavailable Unavailable KURT LACY [facility] Unavailable Unavailable INC, [facility] NAMRATA SAENZ, Unavailable Unavailable NAMRATA SAENZ [facility], Unavailable Unavailable [facility] Unavailable Unavailable IM[facility]ING [facility], [facility] Unavailable [facility], [facility] RENATA SWEENEY, Unavailable Unavailable RENATA SWEENEY [id number], Unavailable Unavailable [id number] Unavailable Unavailable [id number] [address] [id number], [facility] [address] [address] [id number] CARINE KEY Unavailable Unavailable [facility] Unavailable Unavailable HOSPITALS, [facility] Unavailable Unavailable #591, [facility] Purpose Continuity of Care Document - 03-21-2009 through 2016 Problems Code Diagnosis DOS Provider Status [id number] OTHER LONG 02-17-2017 [facility] CURRENT INC DRUG THERAPY G8929 OTHER 12-23-2016 [facility] CHRONIC PHYSICIANS PAIN GROUP E119 TYPE 2 12-12-2016 DIABETES [facility] HOSPITALS WITHOUT COMPLICATIO NS I10 ESSENTIAL 12-12-2016 PRIMARY [facility] HYPERTSIERRA [place] N R2243 LOC 12-12-2016 [place] [facility] LOWER LIMB BILATERAL R600 LOCALIZED 12-12-2016 [facility]OSPITALS Z0389 ENCOUNTER 12-12-2016 [place] [facility] SERV SUSPCT [facility] COND RULED OUT Z720 TOBACCO USE 12-12-2016 [facility] B1920 UNS VIRAL 11-25-2016 [facility] HEPATITIS C PHYSICIANS WITHOUT GROUP HEPATIC COMA E663 OVERWEIGHT 11-25-2016 [facility]ANS GROUP M5116 INTERVERTEB 11-25-2016 [facility] RAL DISC PHYSICIANS D/O GROUP W/RADICULOP ATHY LUMB RGN M545 LOW BACK 11-25-2016 [facility] PAIN PHYSICIANS GROUP M1990 UNSPECIFIED 09-07-2016 [facility] PHYSICIANS OSTEOARTHRI GROUP TIS UNSPECIFIED SITE Z139 ENCOUNTER 07-29-2016 [facility] FOR PHYSICIANS SCREENING GROUP UNSPECIFIED Z23 ENCOUNTER 07-29-2016 [facility] FOR PHYSICIANS IMMUNIZATIO GROUP N B353 TINEA PEDIS 06-08-2016 [facility]ANS GROUP M9983 OTHER 06-08-2016 [facility] BIOMECHANIC PHYSICIANS AL LESIONS GROUP OF LUMBAR REGION M722 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 Q36099 PAIN IN 04-07-2016 FALLIS MAHIN RIGHT FOOT A80898 PAIN IN 04-07-2016 FALLIS MAHIN LEFT FOOT G8918 OTHER ACUTE 03-31-2016 FALLIS MAHIN POSTPROCEDU RAL PAIN I890 LYMPHEDEMA 03-31-2016 FALLIS MAHIN NOT ELSEWHERE CLASSIFIED Q53873D DISPLACED 03-31-2016 FALLIS MAHIN FX 3RD METATARSAL LT FT SUBSQT FX RTN [id number] DSPL FX 03-31-2016 FALLIS MAHIN PROX PHALANX LT GREAT TOE SBSQT FX RTN Z4789 ENCOUNTER 03-17-2016 [place] FOR OTHER [facility] AFTERCARE B37380P UNS 02-29-2016 COMMUNITY FRACTURE LT ANESTH OF TOES THE BLUE INITIAL ENC CLOS FRACTURE E1142 TYPE 2 02-25-2016 FALLIS MAHIN DIABETES MELLITUS W/DIAB POLYNEUROPA THY M2570 OSTEOPHYTE 02-25-2016 FALLIS MAHIN UNSPECIFIED JOINT [id number] DISPLACED 02-25-2016 FALLIS MAHIN FX 3RD METATARSAL LT FT INIT CLOS FX [id number] DSPL FX 02-25-2016 FALLIS MAHIN PROX PHALANX LT GREAT TOE INIT CLOS FX [id number] UNS 02-24-2016 [facility] FRACTURE LT PHYSICIANS FOOT GROUP INITIAL ENC CLOS FRACTURE T148 OTHER 02-24-2016 [facility] INJURY OF PHYSICIANS UNSPECIFIED GROUP BODY REGION Q72039 PAIN IN 02-21-2016 [place] LEFT KNEE [facility] R079 CHEST PAIN 02-21-2016 [place] UNSPECIFIED MEDICAL IMAGING ASS [id number] UNSPECIFIED 02-21-2016 [place] INJURY OF MEDICAL THORAX IMAGING ASS INITIAL ENCOUNTER Q7278NF UNS INJURY 02-21-2016 [place] LT LOWER MEDICAL LEG INITIAL IMAGING ASS ENCOUNTER T30875N NONDSPL FX 02-21-2016 [place] 3RD MEDICAL METATARSAL IMAGING ASS LT FT INIT ENC CLOS FX [id number] DSPL FX 02-21-2016 [place] PROX PHALNX MEDICAL LT LESSER IMAGING ASS TOES INIT YONY FX S92510 PRIMARY 02-09-2016 [facility] TIS INC UNSPECIFIED SHOULDER M170 BILATERAL 12-15-2015 [facility] OSTEOARTHRI INC TIS OF KNEE M5136 OTH 11-30-2015 [facility] RAL DISC INC DEGEN LUMBAR REGION 4439 UNSPECIFIED 10-13-2009 [facility] PERIPHERAL JARRETT VASCULAR DISEASE 4541 VARICOSE 10-13-2009 [facility] VEINS LOWER JARRETT EXTREMITIES W/INFLAMMAT ION 4660 ACUTE 09-30-2009 [place] [facility] 60354 CHRONIC 09-23-2009 BERT SAENZ W IS UNSPECIFIED 7224 DEGENERATIO 08-10-2009 [facility] N OF FAMILY CERVICAL CHIROPRACTI INTERVERTEB C RAL DISC 60993 DEGEN 08-10-2009 [facility] 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 INTERVERTEB RAL DISC 17591 DEGEN 08-10-2009 [facility] LUMBAR/LUMB FAMILY OSACRAL CHIROPRACTI INTERVERTEB C RAL DISC 7395 NONALLOPATH 08-10-2009 [facility] IC LESION FAMILY OF PELVIC CHIROPRACTI REGION NEC C 71893 DIAB W/O 07-28-2009 [place] COMP TYPE [facility] II/UNS NOT HOSPITAL STATED PROF DARYA UNCNTRL 61858 COR 07-28-2009 [place] [facility] TYPE VESSEL PROF SERV [place]/DEL[place] T 24134 PERIPHERAL 07-28-2009 [place] ANGIOPATHY [facility] CLASSIFIED PROF SERV ELSW 31778 OBSTRUCTIVE 07-28-2009 [facility] WITH PROF SERV EXACERBATIO N 59711 OBESITY, 03-21-2009 MONIQUE, UNSPECIFIED INNA W 4011 [...] 00 9- 1- 00 06 TO ve TX 51 20 20 08 WN IL 80 [...] 20 2- 0- 00 06 TO ve CO 76 20 20 08 WN N 00 [...] 20 7- 2- 00 06 TO ve CO 76 20 20 08 WN N 00 [...] 00 0- 2- 00 06 TO ve TX 51 20 20 08 WN IL 80 [...] 00 3- 4- 00 06 TO ve TX 51 20 20 08 WN IL 80 [...] 20 7- 7- 00 06 TO ve CO 76 20 20 08 WN N 00 [...] 00 3- 7- 00 06 TO ve TX 51 20 20 08 WN IL 80 [...] 00 5- 7- 00 06 TO ve TX 51 20 20 08 WN IL 80 [...] 20 5- 7- 00 06 TO ve CO 76 20 20 08 WN N 00 [...] 07 WN ZA 93 16 17 84 TX 2 83 PH IN AR E MA 10 CY MG OF TA CY BL NT ET HI AN A LI 68 12 01 60 30 00 HO Ac SI 18 -2 -2 .0 00 ME ti NO 00 9- 0- 00 06 TO ve TX 51 20 20 07 WN IL 80 [...] 12 01 30 30 00 HO Ac TX 00 -2 -2 .0 00 ME ti [...] 20 9- 0- 00 06 TO ve CO 76 20 20 07 WN N 00 [...] 34 4- 0- 00 24 LD ve TX 59 20 20 AI ED 31 10 [...] 34 4- 4- 00 24 LD ve TX 59 20 20 AI ED 31 10 [...] 82 1- 0- 00 33 LD ve TX 07 20 20 AI IL 40 09 [...] DOS Code Location Performer Comment DRUG TEST 42832 [facility] QUAL DIR INC INC OPTICAL OBS PER DAY DRUG TEST 41598 [facility] QUAL DIR INC INC OPTICAL OBS PER DAY DRUG TEST 60969 [facility] QUAL DIR INC INC OPTICAL OBS PER DAY COMPREHEN 92643 [place] SIVE 7 [facility]ALTH[facility]ALTH[facility] METABOLIC E E PANEL [facility] [place] [address] [place] LACTATE 7 HEALTHCAR HEALTHCAR E E HOSPITALS [facility] DUP-SCAN 02686 [place] HARSHAL XTR VEINS 7 MEDICAL COMPLETE SERV FOUNDATIO BILATERAL N STUDY CREATINE 37255 [facility] KINASE 7 [facility] TOTAL E E [facility]OSP[facility] BLOOD 99149 [facility] COUNT 7 [facility] COMPLETE E E [facility]OMATED [facility] NATRIURE[facility] 00392 [facility] IC 7 [facility] PEPTIDE E E HOSPITALS HOSPITALS DRUG TEST 62350 [facility] QUAL DIR INC INC OPTICAL OBS PER DAY DRUG TEST 20152 [facility] QUAL DIR INC INC OPTICAL OBS PER DAY DRUG TEST 06230 [facility] QUAL DIR INC INC OPTICAL OBS PER DAY DRUG TST G0477 [facility] PRESUMP;C [facility] PBL BEING INC INC READ DC OPT OBV ONLY DRUG TST G0477 [facility] PRESUMP;C 6 [facility] PBL BEING INC INC READ DC OPT OBV ONLY PPSV23 73774 [facility] PHYLLIS VACCINE 2 6 PHYSICIAN BETO YRS OR S GROUP OLDER FOR SUBQ/IM USE BLOOD 99616 [facility] COUNT 6 [facility] COMPLETE INC INC AUTO&AUTO DIFRNTL WBC HEMOGLOBI 49625 [facility] N [facility] GLYCOSYLA INC INC LATA A1C COMPREHEN 29446 [facility] SIVE [facility] METABOLIC INC INC PANEL IM ADM 79248 [facility] PRQ ID 6 PHYSICIAN BETO SUBQ/IM S [...] INC READ DC OPT OBV ONLY REMOVAL 77138 [facility] JULIA IMPLANT 6 MAHIN MI DEEP APPLICATI 25940 [facility] JULIA ON RIGID 6 MAHIN MI TOTAL CONTACT LEG CAST RADIOLOGI 10561 [place] CONDE ALL C 6 MEDICAL EXAMINATI IMAGING ON FOOT 2 ASS VIEWS RADEX 23163 [facility] FOOT 6 [facility] COMPLETE INC INC MINIMUM 3 VIEWS ANES OPEN 26760 [facility] PROC 6 ANESTH NEL BONES OF THE LOWER BLUE LEG/ANKLE /FOOT NOS BLOOD 79094 [facility] COUNT [facility] COMPLETE INC INC AUTO&AUTO DIFRNTL WBC ADD LOW L2840 [facility] JULIA EXTREM 6 MAHIN MI ORTHOTIC TIB LENGTH SOCK FX/= EA WALKING L4360 HONEY STOCKTONANT BOOT 6 MAHIN MI PNEUMATC &/ VACUUM PREFAB CUSTM FIT RADIOLOGI 22659 GEET[facility] CONDE ALL C 6 MEDICAL EXAMINATI IMAGING ON KNEE ASS 1/2 VIEWS RADIOLOGI 84005 GEETHA CONDE ALL C 6 MEDICAL EXAMINATI IMAGING ON CHEST ASS SINGLE VIEW FRONTAL RADIOLOGI 84552 GEETHA CONDE ALL C 6 MEDICAL EXAMINATI IMAGING ON FOOT 2 ASS VIEWS DRUG TST G0477 [facility] PRESUMP;C [facility] PBL BEING INC INC READ DC OPT OBV ONLY DRUG 26567 [facility] SCREENING 6 [facility] OPIOIDS INC INC & OPIATE ANALOGS 5/MORE INJECTION J1030 [facility] METHYLPRE INC INC DNISOLONE ACETATE 40 MG ARTHROCEN 69972 [facility] TESIS 6 [facility] ASPIR&/IN INC INC J MAJOR JT/BURSA W/O US BLOOD 73365 [facility] COUNT [facility] COMPLETE INC INC AUTO&AUTO DIFRNTL WBC PROSTATE G0103 [facility] CANCER 6 [facility] SCREENING INC INC ; PSA TEST HEMOGLOBI 93311 [facility] N 6 [facility] [place] [address] [facility] PROSTATE 6 [facility] SPECIFIC INC INC ANTIGEN FREE COMPREHEN 80518 [facility] SIVE [facility] METABOLIC INC INC PANEL MRI 63698 [facility] SPINAL [facility] CANAL INC INC LUMBAR W/O CONTRAST MATERIAL DRUG TST G0477 [facility] PRESUMP;C [facility] PBL BEING INC INC READ DC OPT OBV ONLY DRUG TST G0477 [facility] PRESUMP;C 6 [facility] PBL BEING INC INC READ DC OPT OBV ONLY ALBUMIN 12308 [facility] URINE 6 [facility] MICROALBU INC INC MIN QUANTIATI VE BASIC 44231 [facility] METABOLIC 6 [facility] PANEL INC INC CALCIUM TOTAL HEMOGLOBI 03515 [facility] N 6 [facility] GLYCOSYLA INC INC LATA A1C DRUG 08205 [facility] SCREEN 6 [facility] LIST A INC INC SINGLE DRUG CLASS METHOD NON-INVAS 78525 GEETHA RODRIGUEZUTCHER, RAYMOND 0 MEDICAL STERLING PHYSIOLOG IMAGING IC STUDY ASSOCIATE EXTREMITY S 3 LEVLS GINGIVOPL 34589 LETTY SAENZ ASTY EACH 0 , NAMRATA OTT QUADRANT W W SPECIFY ORTHOPANT 65256 LETTY SAENZ OGRAM 0 , NAMRATA OTT APPL 67174 SUYAPA LACY, SHA 9 FAMILY KURT R 1/> AREAS CHIROPRAC ELEC TIC STIMJ UNATTENDE D CHIROPRAC 01998 SUYAPA LACY, SHIRIN 9 FAMILY KURT R MANIPULAT CHIROPRAC [place] TIC SPINAL 3-4 REGIONS THERAPEUT 96799 SUYAPA LACY, HAYDEN PX 1/> 9 FAMILY KURT R AREAS CHIROPRAC EACH 15 TIC MIN EXERCISES CHIROPRAC 76521 SUYAPA LACY, TIC 9 FAMILY KURT R MANIPULAT CHIROPRAC [place] TIC SPINAL 3-4 REGIONS THERAPEUT 55121 SUYAPA LACY, HAYDEN PX 1/> 9 FAMILY KURT R AREAS CHIROPRAC EACH 15 TIC MIN EXERCISES APPL 07252 SHA RODRIGUES 9 FAMILY KURT R 1/> AREAS CHIROPRAC ELEC TIC STIMJ UNATTENDE D APPL 62454 SUYAPA LACY MODALITY 9 FAMILY KURT R 1/> AREAS CHIROPRAC TRACTION TIC MECHANICA L SELF-CARE 08276 SUYAPA LACY, /HOME 9 FAMILY KURT R MGMT CHIROPRAC TRAINING TIC EACH 15 MINUTES APPL 90370 SUYAPA LACY, SHA 9 FAMILY KURT R 1/> AREAS CHIROPRAC ELEC TIC STIMJ EA 15 MIN APPL 57074 SHA RODRIGUES 9 FAMILY KURT R 1/> AREAS CHIROPRAC TRACTION TIC MECHANICA L CHIROPRAC 89490 SUYAPA LACY, TIC 9 FAMILY KURT R MANIPLTV CHIROPRAC TX TIC EXTRASPIN AL 1/> REGION APPL 04685 SUYAPA LACY, MODALITY 9 FAMILY KURT R 1/> AREAS CHIROPRAC ELEC TIC STIMJ UNATTENDE D SELF-CARE 24065 SUYAPA ALCY, /HOME 9 FAMILY KURT R MGMT CHIROPRAC TRAINING TIC EACH 15 MINUTES RADEX 15867 SUYAPA LACY, SPINE 9 FAMILY KURT R CERVICAL CHIROPRAC 2 OR 3 TIC VIEWS CHIROPRAC 22237 SHIRIN RODRIGUES 9 FAMILY KURT R MANIPULAT CHIROPRAC [place] TIC SPINAL 3-4 REGIONS THERAPEUT 27443 SUYAPA LACY, IC PX 1/> 9 FAMILY KURT R AREAS CHIROPRAC EACH 15 TIC MIN EXERCISES RADEX 45192 SUYAPA LACY SPINE 9 FAMILY KURT R LUMBOSACR CHIROPRAC AL 2/3 [place] [address] [facility] THYROXINE 9 [facility] TOTAL INC INC SEDIMENTA 40855 [facility] TION RATE 9 [facility] RBC INC INC NON-AUTOM ATED BILIRUBIN 59203 [facility] DIRECT 9 [facility] INC INC THYROID 34071 [facility] HORM 9 [facility] UPTK/THYR INC INC OID HORMONE BINDING RATIO BLOOD 23668 [facility] COUNT 9 [facility] COMPLETE INC INC AUTO&AUTO DIFRNTL WBC COMPREHEN 19725 [facility] SIVE 9 [facility] METABOLIC INC INC PANEL RADIOLOGI 26894 [facility] C EXAM 9 [facility] CHEST 2 INC INC VIEWS FRONTAL&L ATERAL ECG 10815 NASIM BOLAÑOS 9 [facility] W/LEAST PROF SERV 12 LDS I&[place] [address] [facility] THYROID 9 [facility] STIMULATI INC INC NG HORMONE TSH LIPID 54287 [facility] PANEL 9 [facility] INC INC HEMOGLOBI 93579 [facility] N 9 [facility] GLYCOSYLA INC INC LATA A1C PROSTATE G0103 [facility] CANCER 9 [facility] SCREENING INC INC ; PSA TEST ECG 22954 [facility] ROUTINE 9 [facility] ECG INC INC W/LEAST 12 LDS TRCG ONLY W/O I&R Encounters Encounter Start End Date Code Location Performer Type Date [facility] 7 7 [facility] OUTPATIEN INC [facility] - 7 7 [facility] 7 7 [facility] PHYSICIAN T VISIT S GROUP 15 MINUTES [facility] - 7 7 [facility] 90896 IN ECKERLINE 7 7 MEDICAL JR DEPARTMEN SERV T VISIT FOUNDATIO HIGH/URGE N NT [facility] - 7 7 [facility] OUTPATIEN [facility] T OFFICE 97479 [facility] PHYSICIAN T VISIT S GROUP 15 MINUTES [facility] - 7 7 [facility] OUTPATIEN INC T OFFICE 11890 [facility] PHYLLIS OUTPATIEN 7 7 PHYSICIAN T VISIT S GROUP 25 MINUTES [facility] - 7 7 [facility] OUTPATIEN INC T OFFICE 45626 [facility] PHYLLIS OUTPATIEN 7 7 PHYSICIAN T VISIT S GROUP 15 MINUTES OFFICE 04143 [facility] PHYLLIS OUTPATIEN 6 6 PHYSICIAN T VISIT S GROUP 25 MINUTES [facility] - 6 6 [facility] OUTPATIEN INC T OFFICE 94190 [facility] PHYLLIS OUTPATIEN 6 6 PHYSICIAN BETO T VISIT S GROUP 25 MINUTES [facility] - 6 6 [facility] OUTPATIEN INC T [facility] - 6 6 [facility] OUTPATIEN INC T OFFICE 68437 [facility] PHYLLIS OUTPATIEN 6 6 PHYSICIAN BETO T VISIT S GROUP 25 MINUTES OFFICE 46052 [facility] PHYLLIS OUTPATIEN 6 6 PHYSICIAN BETO T VISIT S GROUP 15 MINUTES OFFICE 90413 [facility] JULIA OUTPATIEN 6 6 MAHIN MI T VISIT 15 MINUTES [facility] 6 6 [facility] OUTPATIEN INC T OFFICE 15829 [facility] 6 6 [facility] T VISIT INC 10 MINUTES [facility] - 6 6 [facility] OUTPATIEN INC T OFFICE 11206 [facility] JULIA OUTPATIEN 6 6 MAHIN MI T VISIT 15 MINUTES OFFICE 59025 [facility] PHYLLIS OUTPATIEN 6 6 PHYSICIAN BETO T VISIT S GROUP 10 MINUTES [facility] - 6 6 [facility] OUTPATIEN INC T OFFICE 37504 FALLIS JULIA OUTPATIEN 6 6 MAHIN MI T NEW 30 MINUTES [facility] 6 6 [facility] OUTPATIEN INC T OFFICE 30592 [facility]IEN 6 6 [facility] T VISIT INC 10 MINUTES [facility] 6 6 [facility] OUTPATIEN INC T [facility] 6 6 [facility] OUTPATIEN INC T [facility] 6 6 [facility] OUTPATIEN INC T [facility] 6 6 [facility] OUTPATIEN INC T OFFICE 21302 [facility] OUT[facility]IEN 6 6 [facility] T VISIT INC 10 MINUTES OFFICE 46890 [facility] 6 PHYSICIAN BETO T VISIT S GROUP 10 MINUTES [facility] 6 6 [facility] OUTPATIEN INC T [facility] 6 [facility] OUTPATIEN INC T OFFICE 29448 [facility] OUTPATIEN 6 6 PHYSICIAN BETO T VISIT S GROUP 15 MINUTES [facility] 6 6 [facility] OUTPATIEN INC T OFFICE 14369 [facility]ITT OUTPATIEN 0 0 JARRETT JARRETT T VISIT 15 MINUTES [facility] - 0 0 [facility] OUTPATIEN INC T OFFICE 65679 [facility] 9 9 FAMILY KURT R T WILTON 20 CHIROPRAC MINUTES TIC OFFICE 95106 KASH HEWITT, CONSULTAT 9 9 CARLOS Carr ION NEW[facility] PATIENT 60 MIN [facility] - 9 9 [facility] OUTPATIEN INC T OFFICE 46813 MONIQUE AMAYA OUTPATIEN 9 9 INNA Zaidi T VISIT 15 MINUTES OFFICE 86198 MONIQUE AMAYA OUTPATIEN 9 9 INNA Zaidi T NEW 60 MINUTES
--- OUTSIDE RECORDS SUMMARY | 2017-04-20 07:29 | External Medical Summary Rpt ---
Author Author , ERICK MURPHY Address Unknown Phone [email or web address] Immunization Name Date Rout CVX Reac Dose Comm Prov Is Faci e tion ent ider Refu lity Give sed n Td 08- 9 999 Hist H149 No H149 (hayder 1-20 oric lt), 00 al Info adso rmat rbed ion - Sour ce Unsp ecif ied
--- OUTSIDE RECORDS SUMMARY | 2017-04-20 07:29 | External Medical Summary Rpt ---
Author Author , ERICK MURPHY Address Unknown Phone [email or web address] Immunization Name Date Rout CVX Reac Dose Comm Prov Is Faci e tion ent ider Refu lity Give sed n Td 08- 9 999 Hist H149 No H149 (hayder 1-20 oric lt), 00 al Info adso rmat rbed ion - Sour ce Unsp ecif ied
--- OUTSIDE RECORDS SUMMARY | 2017-04-20 07:30 | External Medical Summary Rpt ---
[...] COCAINE METABOLITE POSITIVE BENZOYLECGONINE (GC/MS) 1000 ng/mL EEDTGX=[id number] PLEASE NOTE: DRUG-TEST RESULTS SHOULD BE INTERPRETED IN THE CONTEXT OF CLINICAL INFORMATION. PATIENT METABOLIC VARIABLES, SPECIFIC DRUG CHEMISTRY, ADN SPECIMEN CHARACTERISTICS CAN AFFECT TEST OUTCOME. TECHNICAL CONSULTATION IS AVAILABLE IF A TEST RESULT IS INCONSISTENT WITH AN EXPECTED OUTCOME (EMAIL - [email or web address] CALL TOLL-Race Yourself [phone]) PERFORMING SITE: [facility] ARINA FLEMING [address] [place] [place] [address] DIR: KENIA MCDONOUGH MD 01/31/17 COCAINE (GC/MS), URINE COCAINE METABOLITE POSITIVE BENZOYLECGONINE (GC/MS) 1000 ng/mL EOGULO=504 PLEASE NOTE: DRUG-TEST RESULTS SHOULD BE INTERPRETED IN THE CONTEXT OF CLINICAL INFORMATION. PATIENT METABOLIC VARIABLES, SPECIFIC DRUG CHEMISTRY, ADN SPECIMEN CHARACTERISTICS CAN AFFECT TEST OUTCOME. TECHNICAL CONSULTATION IS AVAILABLE IF A TEST RESULT IS INCONSISTENT WITH AN EXPECTED OUTCOME (EMAIL - [email or web address] CALL TOLL-FREE [phone]) [facility] [address] [place] [address] DIR: KENIA MCDONOUGH MD
--- OUTSIDE RECORDS SUMMARY | 2017-04-20 07:30 | External Medical Summary Rpt ---
[...] COCAINE METABOLITE POSITIVE BENZOYLECGONINE (GC/MS) 1000 ng/mL [id number] PLEASE NOTE: DRUG-TEST RESULTS SHOULD BE INTERPRETED IN THE CONTEXT OF CLINICAL INFORMATION. PATIENT METABOLIC VARIABLES, SPECIFIC DRUG CHEMISTRY, ADN SPECIMEN CHARACTERISTICS CAN AFFECT TEST OUTCOME. TECHNICAL CONSULTATION IS AVAILABLE IF A TEST RESULT IS INCONSISTENT WITH AN EXPECTED OUTCOME (EMAIL - [email or web address] CALL [email or web address] [phone]) PERFORMING SITE: [facility] ARINA FLEMING [address] [place] [place] [address] DIR: KENIA MCDONOUGH MD 01/31/17 COCAINE (GC/MS), URINE COCAINE METABOLITE POSITIVE BENZOYLECGONINE (GC/MS) 1000 ng/mL [id number] PLEASE NOTE: DRUG-TEST RESULTS SHOULD BE INTERPRETED IN THE CONTEXT OF CLINICAL INFORMATION. PATIENT METABOLIC VARIABLES, SPECIFIC DRUG CHEMISTRY, ADN SPECIMEN CHARACTERISTICS CAN AFFECT TEST OUTCOME. TECHNICAL CONSULTATION IS AVAILABLE IF A TEST RESULT IS INCONSISTENT WITH AN EXPECTED OUTCOME (EMAIL - [email or web address] CALL TOLL-FREE [phone]) [facility] [address] [place] [address] DIR: KEINA MCDONOUGH MD
== END 2017-04-19 08:30 | disposition left against medical advice (07) ==
LOC: ER 08:57 → 2ND 11:07
PROVIDERS: Emergency Medicine
DX: T79.6XXA Traumatic ischemia of muscle, initial encounter (principal)
CPT/HCPCS: G0378